=== PATIENT | male | born 1960 | race Caucasian/White ===

== ENCOUNTER → 2023-06-23 13:51 | Outpatient (BNVA) | payer MEDICARE, SELFPAY | PROVIDERS: Referring Provider Nurse Practitioner Family; Visit Provider Internal Medicine Cardiovascular Disease | DX: I25.118 Atherosclerotic heart disease of native coronary artery with other forms of angina pectoris (principal); I10 Essential (primary) hypertension; R06.02 Shortness of breath; J44.9 Chronic obstructive pulmonary disease, unspecified; I77.9 Disorder of arteries and arterioles, unspecified; E78.5 Hyperlipidemia, unspecified | CPT/HCPCS: 99204 ==

== ENCOUNTER 2023-07-01 08:26 | Outpatient (CLI) | payer MEDICARE, SELFPAY ==
[2023-07-01 08:34] VITALS: BMI 23.5
--- NOTE | 2023-07-01 08:42 | ECG_ITS ---
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 Interpretive Statements NAME OF STUDY: EXERCISE SESTAMIBI STRESS TEST INDICATION: [Shortness of Breath, CHF, ] EXERCISE DATA: The patient was exercised by Dheeraj protocol. Baseline heart rate was 101 beats per minute. Baseline blood pressure was 187/96 millimeters of mercury. Maximal predicted heart rate was 158 beats per minute. Maximum heart rate achieved was 161, which was 101% of the maximum predicted heart rate. Maximum blood pressure was 188/91 millimeters of mercury. Total exercise time was 2 minutes 29 seconds. Maximum METs achieved was 4.6. The reason for ending the test was completion of protocol. The patient complained of shortness of breath during the stress test, which then resolved at the end of the test. ELECTROCARDIOGRAM: BASELINE: Showed atrial fibrillation with rapid ventricular rate, normal axis, no significant ST-T changes at the baseline noted. [] EXERCISE: At the peak exercise level, [] No significant ST-T changes suggestive of ischemia noted. [] RECOVERY: During the recovery period, heart rate stayed elevated. No significant ST-T changes in the recovery suggestive of ischemia noted. [] CONCLUSION: 1. Exercise capacity poor 2. Heart rate response was appropriate. 3. Blood pressure response was appropriate 4. Symptoms not suggestive of ischemia. 5. Electrocardiogram portion of the stress test was not suggestive of ischemia. 6. Nuclear scan will be documented separately. Electronically Signed On 07-18-2023 11:34:15 NEWS PHOTOGRAPHER by Adolfo Mcgovern M.D. [email or web address]
--- NOTE | 2023-07-01 08:42 | NMCV_ITS ---
NM ham perf SPECT r/s* [id number] Darren Foley Age: 63 Gender: M : 1960 Exam Date: 07/01/2023 08:42 Ordering Phys: Kelly Aquino MD ([email or web address]) Technologist: NERIS Alexander Exam Location: [facility] Indications: CORONARY ANGIOPLASTY STATUS STRESS TEST Please see separate stress test report in [facility] for full findings IMAGE PROTOCOL Rest/Stress 1 Exercise Day Radiopharmaceutical Dose (mCi) Administration Site Administered by Rest: Tc-99m 10.8 IV NERIS Muñoz Sestamibi Stress:Tc-99m 32.6 IV NERIS Muñoz Sestamibautista Rest: 01-Jul-2023 60 Discovery 630 Stress: 01-Jul-2023 15 Discovery 630 Radiopharmaceutical was injected at 93 % maximum heart rate. Supine position only as patient was unable to lay prone. SPECT RESULTS Technical Quality: Excellent Raw Data Analysis: Normal Image Corrections: No attenuation or motion correction applied Summed Stress Score: 0 Summed Rest Score: 0 Summed Difference Score: 0 PERFUSION FINDINGS SPECT images demonstrate homogeneous tracer distribution throughout the myocardium. FUNCTIONAL RESULTS (calculated via Gated SPECT) Stress Image LV EF (%): 65 Stress EDV (mL):80 TID: 0.88 Stress ESV (mL):28 FUNCTIONAL FINDINGS: There is normal left ventricular systolic function. IMPRESSIONS 1. Normal myocardial perfusion imaging with no evidence of ischemia 2. LV systolic function is normal Adolfo Mcgovern MD (Electronically Signed) Final Date: 01 July 2023 16:51 S
[2023-07-01 10:39] VITALS: BP 160/89; PULSE 112
== END 2023-07-01 08:27 | disposition home or self-care (01) ==
LOC: CDL 08:27
PROVIDERS: PCP Nurse Practitioner Family; Visit Provider Internal Medicine Cardiovascular Disease
DX: I50.9 Heart failure, unspecified (principal)
CPT/HCPCS: 36415; 78452; 93017; 96374; A9500

== ENCOUNTER 2023-07-22 13:13 | Outpatient (CLI) | payer MEDICARE, SELFPAY ==
--- NOTE | 2023-07-22 10:15 | USCV_ITS ---
Darren Foley Age: 63 Gender: M : 1960 Exam Date: 07/22/2023 13:39 Ordering Phys: Kelly Aquino MD ([email or web address]) Technologist: HARISH Exam Location: [facility] [place] Indication: CHEST PAIN/SHORTNESS OF BREATH BP: 144 / 55 HR: 67 Rhythm: Sinus Technical Quality: Suboptimal MEASUREMENTS (Male / Female) Normal Values 2D ECHO LV Diastolic Diameter PLAX 4.6 cm 4.2 - 5.9 / 3.9 - 5.3 cm IVS Diastolic Thickness 0.9 cm 0.6 - 1.0 / 0.6 - 0.9 cm IVS Systolic Thickness 1.6 cm LVPW Diastolic Thickness 1.5 cm 0.6 - 1.0 / 0.6 - 0.9 cm LVPW Systolic Thickness 2.4 cm LVOT Diameter 2.0 cm LV Ejection Fraction 2D Teich 85.4 % LV Ejection Fraction MOD 2C 57.0 % LV Ejection Fraction 2C AL 0.0 % LA Diameter 2.7 cm Aorta at Sinotubular Diameter 2.5 cm IVC Diameter 2.0 cm M-MODE LA Ao Ratio MM 0.9 AV Cusp Separation MM 2.3 cm DOPPLER AV Peak Velocity 108.0 cm/s LVOT Peak Velocity 85.0 cm/s AV Area Cont Eq vti 2.9 cm squared AV Area Cont Eq pk 2.5 cm squared MV Peak Velocity 73.0 cm/s MV Area PHT 2.7 cm squared Mitral E to A Ratio 1.4 TR Peak Velocity 97.0 cm/s TR Peak Gradient 3.8 mmHg TR Mean Velocity 81.0 cm/s TR Mean Gradient 2.7 mmHg TR Velocity Time Integral 28.0 cm TV Peak E Velocity 55.0 cm/s Right Atrial Pressure 3.0 mmHg Pulmonary Artery Systolic Pressu 6.8 mmHg PV Peak Velocity 83.0 cm/s RV Ejection Time 0.4 s FINDINGS Left Ventricle Normal left ventricular size and systolic function, EF 57%. No regional wall motion abnormalities. Grade I/IV diastolic dysfunction (abnormal relaxation filling pattern), normal to mildly elevated filling pressures. Right Ventricle The right ventricle is normal in size and function. Right Atrium The right atrium is normal in size. Left Atrium The left atrium is normal in size. Mitral Valve No gross abnormalities noted Aortic Valve No gross abnormalities noted Tricuspid Valve No gross abnormalities noted Pulmonic Valve No gross abnormalities noted Pericardium Normal pericardium without effusion. Aorta Normal ascending aorta dimension. IVC The inferior vena cava appears normal. CONCLUSIONS Normal left ventricular size and systolic function, EF 57%. No regional wall motion abnormalities. Grade I/IV diastolic dysfunction (abnormal relaxation filling pattern), normal to mildly elevated filling pressures. Normal chamber sizes. No intracardiac masses No pericardial effusion No similar previous studies are available for comparison Dr Kelly Aquino MD [facility] (Electronically Signed) Final Date: 23 July 2023 13:33 S
--- NOTE | 2023-07-22 11:00 | USCV_ITS ---
Darren Foley Age: 63 Gender: M : 1960 Exam Date: 07/22/2023 14:08 Ordering Phys: Kelly Aquino MD ([email or web address]) Technologist: HARISH Exam Location: [facility] [place] Indication: PAD Risk Factors: Previous Vascular Surgery: RIGHT LEFT BP: 144.0 / BP: 140.0/ 0 0 Waveform Velocity (cm/s) Velocity (cm/s) Waveform Triphasic 131.0 Iliac Prox 42.0 Monophasic Triphasic 137.0 Iliac Mid 43.0 Monophasic Triphasic 153.0 Iliac Distal 49.0 Monophasic Triphasic 170.0 LACE ROLLER OPERATOR 51.0 Monophasic Triphasic 108.0 SFA Prox 58.0 Monophasic Triphasic 105.0 SFA Mid 71.0 Monophasic Triphasic 124.0 SFA Dist 81.0 Monophasic Triphasic 59.0 POP 43.0 Monophasic Triphasic 68.0 MOTOR VEHICLE COMPLIANCE ANALYST 46.0 Monophasic Triphasic 68.0 DPA 36.0 Monophasic 1.0 CHRISTOS 0.6 FINDINGS Mild to moderate diffuse heterogenous plaques in the right common iliac artery, mild diffuse plaques in the femoral and popliteal artery on the right side Mild diffuse plaque in the left iliac artery. Moderate diffuse plaque in the femoral and popliteal arteries on the left side Resting CHRISTOS Abnormal artery Doppler waveform in the left side.. Diminished Doppler flow velocity on the left side resting CHRISTOS 1.0 on the right and 0.6 on the left side CONCLUSIONS 1. Abnormal resting CHRISTOS and arterial Doppler waveforms on the left side, history of moderate to severe peripheral artery disease possibly involving the aortoiliac segment. 2. Normal resting CHRISTOS on the right side with a mild to moderate diffuse heterogenous plaques in the iliac artery. Features suggesting no significant stenosis Dr Kelly Aquino MD [facility] (Electronically Signed) Final Date: 22 July 2023 17:10 S
== END 2023-07-22 13:14 | disposition home or self-care (01) ==
LOC: RAD 13:14
PROVIDERS: PCP Nurse Practitioner Family; Visit Provider Internal Medicine Cardiovascular Disease
DX: I73.9 Peripheral vascular disease, unspecified (principal); R06.09 Other forms of dyspnea; I50.9 Heart failure, unspecified
CPT/HCPCS: 93306; 93925

== ENCOUNTER → 2023-09-23 12:11 | Outpatient (BNVA) | payer MEDICARE, SELFPAY | PROVIDERS: PCP Nurse Practitioner Family; Visit Provider Internal Medicine Cardiovascular Disease | DX: R06.02 Shortness of breath (principal) | CPT/HCPCS: 36415; 80048; 83880; 99215 ==

== ENCOUNTER 2023-10-30 10:21 | Outpatient (CLI) | payer MEDICARE, SELFPAY ==
--- NOTE | 2023-10-30 10:45 | CTR_ITS ---
PROCEDURE INFORMATION: Exam: CTA Abdominal Aorta and Bilateral Lower Extremities (Run-off) With Contrast Exam date and time: 10/30/2023 10:36 AM Age: 63 years old Clinical indication: Condition or disease; Patient HX: Pad, left leg weakness; Additional info: Pad, aeap TECHNIQUE: Imaging protocol: Computed tomographic angiography of the of the abdominal aorta, pelvis and bilateral lower extremities with contrast. 3D rendering (Not supervised by radiologist): MIP and/or 3D reconstructed images were created by the technologist. Radiation optimization: All CT scans at this facility use at least one of these dose optimization techniques: automated exposure control; mA and/or kV adjustment per patient size (includes targeted exams where dose is matched to clinical indication); or iterative reconstruction. Contrast material: OMNI 350; Contrast volume: 125 ml; Contrast route: INTRAVENOUS (IV); COMPARISON: No relevant prior studies available. RADIATION DOSE METRICS: Total DLP (mGy-cm): 1131.89 FINDINGS: Aorta: No aortic aneurysm. No aortic dissection. Heavy calcified plaque noted. Celiac trunk and mesenteric arteries: No occlusion or significant stenosis. Renal arteries: No occlusion or significant stenosis. Right iliac arteries: No occlusion or significant stenosis. Right femoral/popliteal arteries: No occlusion or significant stenosis. Right infrapopliteal arteries: No occlusion or significant stenosis. Left iliac arteries: There is occlusion of the left common iliac artery but the external iliac artery is patent. Left femoral/popliteal arteries: No occlusion or significant stenosis. Left infrapopliteal arteries: No occlusion or significant stenosis. Liver: No mass. Gallbladder and bile ducts: Unremarkable. No calcified stones. No ductal dilation. Pancreas: Unremarkable. No mass. No ductal dilation. Spleen: Normal. No splenomegaly. Adrenal glands: Normal. No mass. Kidneys and ureters: 3.7 cm left renal cyst noted. 2 cm right renal cyst noted. No mass. Stomach and bowel: Unremarkable. No obstruction. No mucosal thickening. Appendix: No evidence of appendicitis. Urinary bladder: Unremarkable. No mass. Reproductive: Unremarkable as visualized. Intraperitoneal space: Unremarkable. No free air. No significant fluid collection. Lymph nodes: No lymphadenopathy. Bones/joints: No acute fracture. No dislocation. Soft tissues: Unremarkable. CT/CT angio abd aorta runof [id number] IMPRESSION: 1. Left common iliac artery occlusion, felt to be chronic. No other significant arterial abnormality noted. 2. A benign renal cyst or cysts have been detected. No further follow-up imaging is required.
[2023-10-30] MEDS: iohexol 350 mg/mL 500 mL Btl (per mL) IV (10:49)
== END 2023-10-30 10:22 | disposition home or self-care (01) ==
LOC: RAD 10:22
PROVIDERS: PCP Nurse Practitioner Family; Visit Provider Internal Medicine Cardiovascular Disease
DX: I74.5 Embolism and thrombosis of iliac artery (principal); I77.9 Disorder of arteries and arterioles, unspecified; I73.9 Peripheral vascular disease, unspecified; N28.1 Cyst of kidney, acquired
CPT/HCPCS: 75635; Q9967

== ENCOUNTER → 2023-12-17 12:24 | Outpatient (BNVA) | payer MEDICARE, SELFPAY | PROVIDERS: PCP Nurse Practitioner Family; Visit Provider Internal Medicine | DX: I77.9 Disorder of arteries and arterioles, unspecified (principal) | CPT/HCPCS: 99214 ==

== ENCOUNTER 2024-01-22 07:23 | Outpatient (CLI) | payer MEDICARE, SELFPAY ==
[2024-01-22] VITALS (57 sets, daily range): BP systolic 89–151; BP diastolic 52–107; PULSE 0–104; RESP 13–30; TEMP 35.9–36.7; O2SAT 92–98; BMI 22.5
--- NOTE | 2024-01-22 07:30 | XACV_ITS ---
Ht: 170 cm Wt: 65 kg BSA: 1.76 m2 Any Known Allergies: No known allergies Gender: Male : 1960 Exam Type: Invasive Peripheral Vascular Procedure(s): Procedure Description: Peripheral Cath Diagnostic Procedure Procedure Description: Abdominal aortic angiography Procedure Description: Iliac arterial aortic angiography Exam Priority: Routine Abdominal Diagnostic Findings Distal abdominal aorta: Patent. Lower Extremity Diagnostic Findings INDICATION: 63-year-old man with past medical history of hypertension who has been having severe lifestyle limiting claudication of left lower extremity. Now says has been having resting leg pain as well. Severe lifestyle limiting claudication/occasional resting leg pain.. Left lower extremity findings: Left ostial common iliac artery is totally occluded with reconstitution of external iliac artery via collaterals. After reconstitution external iliac artery is patent. The common femoral artery is patent. SFA is patent. Profunda artery is patent. Popliteal artery is patent. Below the knee appears to have three-vessel runoff.. Right lower extremity findings: Right common iliac artery is patent. Right external iliac artery is patent. Right common femoral artery is patent. Right profunda artery is patent. Right SFA till mid vessel is patent. Below the that image not obtained as focus of procedure was left lower extremity.. Lower Extremity Interventional Findings Procedure detail: After diagnostic images were obtained, we attempted to revascularize totally occluded left common iliac artery. We obtained access in left common femoral artery with 6 Persian sheath. Using Glidewire and initially seeker support catheter we attempted to cross the totally occluded segment however it was going into subintimal space. We then switched catheter to Navicross however were not able to get back in the true lumen. Further attempts at revascularization were aborted. Access sites were closed with Mynx closure device. Patient left the laboratory immunologist in a stable condition with plans to refer to vascular surgery for consideration of possible bypass vs reattempt at percutaneous intervention. Conclusions Totally occlude left iliac artery s/p unsuccessful attempt at revascularization. Patient will be referred to vascular surgery for reattempt of percutaneous intervention vs bypass surgery. Recommendations Continue Cilostazol and aspirin. High intensity statin therapy. Outpatient cardiology follow up in 2 weeks. Hemodynamic Data Phase:Rest AO : 146.0 / 56.0 ( 79.0 ) @ 11:04:00 AM 115.0 / 55.0 ( 75.0 ) @ 11:28:00 AM Access Site Site: Right Femoral artery Sheath Size: 6 Fr Hemost... Method: Mynx Hemost... Success: Successful Site: Left Femoral artery Sheath Size: 6 Fr Hemost... Method: Mynx Hemost... Success: Successful Procedure Details Findings Procedure Consent Obtained. Pre-Procedure Time Out. Identified patient by full name and date of as verbalized by the patient/guarantor. Does the consent match the physician's order: Yes. Accurate & Complete Informed Consent: Yes. Inpatient/Outpatient History & Physical on Chart: Yes. If H&P is completed, is and addenduem needed: No; If yes, is the addendum complete: N/A. Visualize and Verify Site with Patient/Guarantor: N/A. Relevant Radiology Images available: Yes. Pre-op teaching completed and patient verbalized understanding. The risks, benefits, and alternatives of sedation and/or procedure were discussed by physician. The patient agrees to continue. Procedure started. Physician arrived. Correct patient, site and procedure confirmed by cath team. IV Site on Arrival: 20 gauge in the right anticubital. IV Fluids: 0.9% NaCl at KVO. 0 mL infused prior to laboratory immunologist. Pre Procedural Pulses: right dorsalis pedis was 2+. Pre Procedural Pulses: left dorsalis pedis was Doppled. Pre Procedural Pulses: bilateral posterior tibial was Doppled. Pre Procedural Pulses: bilateral radial was 3+. Oxygen started at 2liters/min via nasal canula. bilateral groins was prepped with chloroprep then draped in the usual sterile fashion. Baseline sample Acquired. HR: 101 BPM. Physician scrubbed in. Immediate Pre-Procedure Time Out. Correct Patient: Yes; Correct Procedure: Yes; Correct Site: Yes; Correct Patient Position: Yes; Correct Supplies: Yes; Dried Flammable Prep: Yes; Blood Products Available: N/A;. Lidocaine 1% infiltrated to the right groin. Arterial access obtained with micropuncture set. A 5Fr UF catheter in over wire. Abdominal aortogram performed in AP @ 10 mL/sec for a total of 30 mL. Catheter attached to heparnized saline flush at KVO to maintain patency on the right side. Lidocaine 1% infiltrated to the left groin. Ultrasound being used to obtain access. Arterial access obtained with micropuncture set. Glidewire inserted. Seeker catheter inserted OTW. UF catheter postioned above the bifurcation of the iliacs. Aortagram performed @ 10 mL/sec for a total of 10 mL. UF catheter postioned above the bifurcation of the iliacs. Aortagram performed @ 10 mL/sec for a total of 20 mL. Glidewire removed. Glidewire inserted through the UF catheter. Catheter removed OTW. A 5Fr RIM catheter in over wire. Glidewire removed. Catheter attached to heparnized Saline flush at KVO to maintain patency. Glidewire inserted through the seeker catheter. Seeker removed OTW. Navicross catheter inserted OTW. Navicross and glidewire removed. Catheter removed OTW. A Right femoral angiogram was performed to determine safe placement of closure device. A Left femoral angiogram was performed to determine safe placement of closure device. A Mynx was successful obtaining hemostatsis at the Left Femoral artery insertion site. A Mynx was successful obtaining hemostatsis at the Right Femoral artery insertion site. Post Procedure: Pulses reassessed and unchanged. PERRLA. Strong, equal hand fire alarm repairer bilaterally. No VTE prophylaxis required. Medication's Wasted: Heparin = 2000 units. Medication's Wasted: Other = Fentanyl 50mcg Versed 1 mg. Total IV fluids: 100 mL. Complications: None. Estimated blood loss: 5mL-10mL. Responsiveness - Normal response to verbal stimuli; alert and oriented, PERRLA. Airway - Unaffected, no intervention required; spontaneous ventilation. Circulation: W/N/L, pulses unchanged. Nausea/Vomiting: No. Vital chart was stopped. Procedure completed. Patient transferred by bed to ICU. Procedure Medications Start: 9:53 AM Stop: 9:53 AM Medication: Benadryl Amount: 50 mg Route: I.V. Start: 9:57 AM Stop: 9:57 AM Medication: Versed 1 mg and Fentanyl 25 mcg Amount: 1 Route: I.V. Start: 10:01 AM Stop: 10:01 AM Medication: Versed Amount: 1 mg Route: I.V. Start: 10:21 AM Stop: 10:21 AM Medication: Heparin Amount: 2000 units Route: I.V. Start: 10:22 AM Stop: 10:22 AM Medication: Versed 1 mg and Fentanyl 25 mcg Amount: 1 Route: I.V. I, the attending physician, have reviewed and verified all procedure medications. Yes, all medications given per verbal order History/Risk Factors Hypertension: Yes Dyslipidemia: Yes Peripheral Arterial Disease (PAD): Yes Obesity: No Renal Disease: No Tobacco Use: Current/Recent(w/in 1 year) Prior Interventions PCI: No CABG: No Valve Surgery: No Report Signatures Finalized by Adolfo Mcgovern MD on 01/24/2024 04:32 PM
[2024-01-22 07:46] LABS: Basophils % 0.2 %; Eosinophils # 0.1 10^3/uL (0.0-0.8); Eosinophils % 0.4 %; Hematocrit 42.3 % (37-53); Lymphocytes # 2.6 10^3/uL (0.8-4.8); Lymphocytes % 17.9 %; Mean Corpuscular HGB Conc 32.6 g/dL (30-55); Mean Corpuscular Hemoglobin 30.1 pg (27-33); Mean Corpuscular Volume 92.2 fl (82-101); Mean Platelet Volume 8.7 fL (7.4-10.4); Monocytes # 1.2 10^3/uL (0.2-0.9); Monocytes % 8.2 %; Neutrophils # 10.42 10^3/uL (1.8-7.7); Neutrophils % 72.7 %; Nucleated Red Blood Cells % 0 %; Platelet Count 274 10^3/cmm (157-399); Red Blood Count 4.59 10^6/uL (3.85-5.65); Red Cell Distribution Width 13.2 % (12.1-15.1); White Blood Count 14.34 10^3/uL (3.29-11.43)
[2024-01-22 08:00] LABS: Anion Gap 18.4 (5-19); Blood Urea Nitrogen 26 mg/dL (8-23); Carbon Dioxide 26 mmol/L (22-29); Chloride 98 mmol/L (98-107); Glomerular Filtration Rate 67.8 mL/min (90-130); Glucose 118 mg/dL (65-115); Osmolality Calculated 292 mOsm/kg (285-295); Potassium 4.4 mmol/L (3.5-5.1); Sodium 138 mmol/L (136-145)
--- NOTE | 2024-01-22 09:54 | W.PM.OPSFHP ---
Same Day Surgery H&P Indication for Procedure/HPI DATE OF PROCEDURE: January 22, 2024 CHIEF COMPLAINT/INDICATIONFOR SURGICAL PROCEDURE: Severe lifestyle limiting claudication of left lower extremity PREOP DIAGNOSIS: Severe lifestyle limiting claudication of left lower extremity PLANNED PROCEDURE: Operation Date: 01/22/24 08:30 Proposed Procedures p Peripheral Diagnostic - Periph Angio Bilat(Not Applicable) - Adolfo Mcgovern M.D Possible peripheral intervention 63-year-old man with past medical history of hypertension who has been having severe lifestyle limiting claudication of left lower extremity. Now says has been having resting leg pain as well. Medications/Allergies* Home Medications Medication Instructions Recorded Confirmed Type ipratropium 0.5 mg-albuterol 3 mg 3 ml inhalation QID PRN Shortness 10/11/21 01/21/24 History (2.5 mg base)/3 mL nebulization Of Breath soln albuterol sulfate 90 mcg/actuation 2 inh inhalation Q4H PRN Shortness 04/03/22 01/21/24 History breath activated powder inhaler Of Breath nitroglycerin 0.4 mg sublingual 0.4 mg sublingual Q5M PRN Chest 04/03/22 01/21/24 History tablet (Nitrostat) Pain trazodone 100 mg tablet 250 mg PO DAILY 04/03/22 01/22/24 History brexpiprazole 1 mg tablet (Rexulti) 1 mg PO DAILY 06/23/23 01/22/24 History fluoxetine 20 mg capsule 20 mg PO DAILY 06/23/23 01/21/24 History budesonide 160 mcg-glycopyr 9 2 inh inhalation BID 01/22/24 01/22/24 History mcg-formot 4.8 mcg/actuation HFA inhaler (Breztri Aerosphere) Allergies/Adverse Reactions Allergy/AdvReac Type Severity Reaction Status Date / Time No Known Drug Allergies Allergy Unknown Verified 01/21/24 08:27 Current Medications: Generic Name Dose Route Start Last Admin Trade Name Freq PRN Reason Stop Dose Admin Sodium Chloride 1,000 mls @ 50 mls/hr 01/22/24 07:30 01/22/24 08:12 Sodium Chloride 0.9% IV 01/23/24 03:29 Not Given .Q20H ONE Pertinent History/Comorbid Conditions* Medical History (Updated 12/17/23 @ 13:51 by Adolfo Mcgovern M.D) HTN (hypertension) Anxiety Atrial fibrillation Chest pain COPD (chronic obstructive pulmonary disease) Cigarette nicotine dependence Atherosclerosis Pre-syncope Dizziness Insomnia Shortness of breath Depression Fatigue Social History Smoking and tobacco/nicotine status: current every day tobacco/nicotine user Pertinent Exam Findings alert, oriented x 3, clear to auscultation bilaterally and regular rate & rhythm Conscious Sedation Assessment PATIENT ASSESSED PRIOR TO SEDATION, WITH NO CHANGE NOTED: Yes AIRWAY EVAL/ANESTHESIA PLAN: normal airway, ASA III, Local Anesthesia, Risks, benefits & alternatives of sedation and/or procedure discussed and Patient agrees to continue as planned ADDITIONAL INFORMATION: Moderate sedation Recommendations Surgery/Procedure today (Peripheral angiogram with possible intervention) Coding Level of Care Code Acute Code for Chg Jyothi
[2024-01-22] MEDS: sodium chloride 0.9% 1,000 ML 75 ML IV (12:29)
[2024-01-22] MEDS: HYDROcodone-acetaminophen 7.5-325 mg Tablet 1 TAB PO (12:30)
--- NOTE | 2024-01-22 15:46 | PC.NURSE ---
received patient from laborer powerhouse staff at 1115. Patient is oriented to person, place, time, and situation, a little lethargic. BP: 142/71, HR: 77, SPO2: 94% on room air. Bilateral puncture sites to groin are unremarkable. Mynx closure device used. No hematoma detected. No external bleeding noted.
--- NOTE | 2024-01-22 15:51 | PC.NURSE ---
Post cath bedrest completed at 3pm. Nurse got patient up to a chair, reassess bilateral cath sites before getting up and 5 minutes after up in the chair. No changes. dressings intact, no signs of internal or external bleeding. Checked again 10 minutes later and continues to be unremarkable. Will continue to monitor.
--- NOTE | 2024-01-22 16:28 | PC.NURSE ---
Ambulated patient around ICU walked approximately 200 feet. Remained sinus rythm. CHeck bilateral groind sites after ambulation. sites were unremarkable.
--- NOTE | 2024-01-22 18:08 | PC.NURSE ---
Patient ambulated out of the ICU floor after instructions and follow up appointments were given. IV was taken out by this nurse before patient left. Patient was stable upon discharge.
== END 2024-01-22 18:00 | disposition home or self-care (01) ==
LOC: CCL 08:58 → ICU 11:11
PROVIDERS: PCP Nurse Practitioner Family; Visit Provider Internal Medicine
DX: I70.222 Atherosclerosis of native arteries of extremities with rest pain, left leg (principal); I70.92 Chronic total occlusion of artery of the extremities; I10 Essential (primary) hypertension; E78.5 Hyperlipidemia, unspecified; F41.9 Anxiety disorder, unspecified; I48.91 Unspecified atrial fibrillation; J44.9 Chronic obstructive pulmonary disease, unspecified; F17.210 Nicotine dependence, cigarettes, uncomplicated
CPT/HCPCS: 75625; 80048; 85025; 96374; 96375; 99152; 99153; C1760; C1769; C1887; C1894; G0269; J1200; J1644; J2250; J3010; J7030; Q9967

== ENCOUNTER 2025-03-31 11:19 | Inpatient (IN) | payer MEDICARE, SELFPAY ==
[2025-03-31] VITALS (30 sets, daily range): BP systolic 83–130; BP diastolic 61–101; PULSE 90–130; RESP 10–34; TEMP 36.6–36.8; O2SAT 94–100; BMI 21.4
--- NOTE | 2025-03-31 11:27 | XRR_ITS ---
PROCEDURE INFORMATION: Exam: XR Chest Exam date and time: 03/31/2025 11:31 AM Age: 65 years old Clinical indication: Shortness of breath; Additional info: Rapid afib, HX copd on oxygen, mildly SOB TECHNIQUE: Imaging protocol: Radiologic exam of the chest. Views: 1 view. COMPARISON: CT angio abd aorta runof [id number] 10/30/2023 10:36 AM FINDINGS: Lungs: No focal airspace opacity. Pleural spaces: No pneumothorax or large pleural effusion. Heart/Mediastinum: Heart size cannot be accurately assessed in this projection. Bones/joints: Unremarkable. XR/XR chest 1V portable [id number] IMPRESSION: No acute findings.
--- OUTSIDE RECORDS SUMMARY | 2025-03-31 11:27 | XMS_ITS | Data Portability ---
Author Organization [facility], [facility] Address [address] [place] [address] Assessment No assessment recorded. Plan of Treatment Reminders Order Date Submit Date Provider Last Modified By Organization Details Last Modified Time Details Appointments ESTABLISH ED PATIENT 20 2024 09:20A M Cindy Joseph NP Not available Not available Not available Lab CBC w/ diff 2024 025 [facility] Clinical Lab, [address] [place], [address], 02/02/2025 16:27:21 CMP, serum or plasma 2024 025 [facility] Clinical Lab, [address] [place], [address], 02/02/2025 16:27:22 TSH, serum or plasma 2024 025 [facility] Clinical Lab, [address] [place], [address], 02/02/2025 16:27:22 lipid panel, serum 2024 025 [facility] Lab, [address] [place], [address], 02/02/2025 16:27:23 H pylori Ab, serum 2024 025 [email or web address] [facility], [address] [place] [address], [address], 02/02/2025 13:23:32 HbA1c (hemoglob in A1c), blood 2024 [facility] Lab, [address] [place], [address], 02/02/2025 18:34:13 HIV 1 p24 Ab, QL, serum [address] Clinical Lab, [address] [place], [address], 02/09/2025 08:16:14 Referral [facility] referral - CALL WITH QUESTIONS /CONCERNS . FAX:[phone] CLARA SMITH/CASE MANAGEMEN T 2024 [facility], [address] [facility] [address], [place], [address], 03/22/2025 09:01:26 ophthalmo logist referral [address] [facility] [place], [address] , [place], [address], 02/17/2025 11:13:33 Procedures None recorded. Surgeries None recorded. Imaging CT, brain, w/o contrast - Schedule as soon as possible [address], [address], [place], [address], 03/21/2025 16:05:09 Medication Orders fluoxetin e 60 mg tablet 2024 025 [facility] [place], [address], [place], [address], 03/22/2025 13:58:10 Yupelri 175 mcg/3 mL solution for nebulizat ion 2024 [email or web address] [facility] [place], [address] [place], [address], 03/10/2025 14:02:59 guaifenes in ER 600 mg tablet, extended release 12 hr 2024 025 [email or web address] [facility] [place], [address] [place], [address], 03/10/2025 14:02:59 Daliresp 500 mcg tablet 2024 025 [facility] [place], [address] [place], [address], 03/11/2025 13:57:44 prednison e 20 mg tablet 2024 025 [facility] [place], [address] [place], [address], 03/22/2025 05:01:58 Depo-Medr ol 40 mg/mL suspensio n for injection 2024 025 [email or web address] Not available 03/21/2025 10:35:16 dexametha sone sodium phosphate 4 mg/mL injection solution 2024 025 [email or web address] Not available 03/21/2025 10:35:19 Depo-Medr ol 40 mg/mL suspensio n for injection 2024 025 [email or web address] Not available 03/21/2025 10:35:16 dexametha sone sodium phosphate 4 mg/mL injection solution 2024 025 [email or web address] Not available 03/21/2025 10:35:19 prednison e 20 mg tablet 2024 025 [facility] [place], [address] [place], [address], 03/22/2025 05:01:58 levofloxa ruben 500 mg tablet 2024 025 [facility] [place], [address] [place], [address], 02/24/2025 05:02:14 Symbicort 160 mcg-4.5 mcg/actua tion HFA aerosol inhaler 2024 025 [place], [address] [place], [address], 03/28/2025 12:58:57 omeprazol e 20 mg capsule,d elayed release 2024 025 [facility] [place], [address] [place], [address], 03/28/2025 12:58:55 Patient TargetsNo targets recorded. Patient Instructions Encounter Date Encounter Id Patient Instructions Last Modified By Organization Details Last Modified Time 02/02/2025 [id number] heart-healthy diet: care instructions Not available 02/02/2025 13:23:32 walking for exercise: care instructions Not available 02/02/2025 13:23:32 03/10/2025 [id number] heart-healthy diet: care instructions Not available 03/10/2025 14:02:59 walking for exercise: care instructions Not available 03/10/2025 14:02:59 03/21/2025 [id number] heart-healthy diet: care instructions Not available 03/21/2025 17:31:49 walking for exercise: care instructions Not available 03/21/2025 17:31:49 smoking cessatio n counseling, greater than 3 minutes up to 10 minutes* [email or web address] Not available 03/21/2025 10:40:36 03/31/2025 [id number] heart-healthy diet: care instructions Not available 03/31/2025 10:19:35 walking for exercise: care instructions [email or web address] Not available 03/31/2025 10:19:35 Reason for Referral [employer] Referral for Eye / vision finding Referring Physician: Cindy Joseph, Family Medicine, Encounter Date: 02/02/2025 Home Health Referral for Chr onic obstructive pulmonary disease CALL [phone] WITH QUESTIONS/CONCERNS. FAX:[phone] CLARA SMITH/CASE MANAGEMENT Referring Physician: Cindy Joseph, Family Medicine, Encounter Date: 03/21/2025 Results Created Date Observation Date Name Description Value Unit Range Abnormal Flag Note LastModifiedBy Organization Detail LastModifiedTime 02/03/2002/02/2025 CBC WBC 8.68 x10(3 )/uL 4.23 - 9.07 Not Available [facility] Clinical Lab [address], [place], [address], 02/02/2025 16:27:21 02/03/2002/02/2025 CBC RBC 4.65 x10(6 )/uL 4.63 - 6.08 Not Available [facility] Lab [address], [place], [address], 02/02/2025 16:27:21 02/03/2002/02/2025 CBC HGB 14.6 g/dL 13.7 - 17.5 Not Available [facility] Lab [address], [place], [address], 02/02/2025 16:27:21 02/03/2002/02/2025 CBC HCT 42.4 % 40.1 - 51.0 Not Available [facility] Lab [address], [place], [address], 02/02/2025 16:27:21 02/03/2002/02/2025 CBC MCV 91.2 fL 79.0 - 92.2 Not Available [facility] Lab [address], [place], [address], 02/02/2025 16:27:21 02/03/2002/02/2025 CBC MCH 31.4 pg 25.7 - 32.2 Not Available [facility] Clinical Lab [address] [place], [address], 02/02/2025 16:27:21 02/03/2002/02/2025 CBC MCHC 34.4 g/dL 32.3 - 36.5 Not Available [facility] Lab [address] [place], [address], 02/02/2025 16:27:21 02/03/2002/02/2025 CBC platelet count 250 x10(3 )/uL 163 - 337 Not Available [facility] Lab [address] [place], [address], 02/02/2025 16:27:21 02/03/2002/02/2025 CBC neut% 64.8 % 34.0 - 67.9 Not Available [facility] Clinical Lab [address] [place], [address], 02/02/2025 16:27:21 02/03/2002/02/2025 CBC lymph% 24.0 % 21.8 - 53.1 Not Available [facility] Lab [address] [place], [address], 02/02/2025 16:27:21 02/03/2002/02/2025 CBC mono% 9.0 % 5.3 - 12.2 Not Available [facility] Lab [address] [place], [place], [address], 02/02/2025 16:27:21 02/03/2002/02/2025 CBC baso% 0.5 % 0.2 - 1.2 Not Available [facility] Clinical Lab [address] [place], [address], 02/02/2025 16:27:21 02/03/20 25 02/02/2025 CBC eo% 1.2 % 0.8 - 7.0 Not Available [facility] Lab [address] [place], [address], 02/02/2025 16:27:21 02/03/20 25 02/02/2025 CBC Ig% 0.5 % 0.0 - 0.4 high Not Available [facility] Lab [address] [place], [address], 02/02/2025 16:27:21 02/03/2002/02/2025 CBC neut# 5.64 x10(3 )/uL 1.78 - 5.38 high Not Available [facility] Lab [address] [place], [address], 02/02/2025 16:27:21 02/03/2002/02/2025 CBC lymph# 2.08 x10(3 )/uL 1.32 - 3.57 Not Available [facility] Lab [address] [place], [address], 02/02/2025 16:27:21 02/03/2002/02/2025 CBC mono# 0.78 x10(3 )/uL 0.30 - 0.82 Not Available [facility] Lab [address] [place], [address], 02/02/2025 16:27:21 02/03/2002/02/2025 CBC baso# 0.04 x10(3 )/uL 0.01 - 0.08 Not Available [facility] Lab [address] [place], [address], 02/02/2025 16:27:21 02/03/2002/02/2025 CBC eo# 0.10 x10(3 )/uL 0.04 - 0.54 Not Available [facility] Lab [address] [place], [address], 02/02/2025 16:27:21 02/03/2002/02/2025 CBC Ig# 0.04 x10(3 )/uL 0.00 - 0.03 high Not Available [facility] Lab [address] [place], [address], 02/02/2025 16:27:21 02/03/2002/02/2025 CBC RDW-CV 13.2 % 11.6 - 14.4 Not Available [facility] Lab [address] [place], [address], 02/02/2025 16:27:21 02/03/2002/02/2025 CBC RDW-SD 44.1 fL 35.1 - 43.9 high Not Available [facility] [address] [place], [address], 02/02/2025 16:27:21 02/03/2002/02/2025 CBC MPV 9.3 fL 9.4 - 12.4 low Not Available [facility] [address] [place], [address], 02/02/2025 16:27:21 02/03/2002/02/2025 CBC NRBC# 0.00 x10(3 )/uL 0.00 - 0.01 Not Available [facility] Lab [address], [place], [place], [address], 02/02/2025 16:27:21 02/03/2002/02/2025 CBC NRBC% 0.0 % 0.0 - 0.2 Not Available [facility] Lab [address], [place], [address], 02/02/2025 16:27:21 02/03/20 25 02/02/2025 TSH TSH 0.987 mIU/L 0.465 - 4.680 Not Available [facility] Lab [address] [place], [address], 02/02/2025 16:27:22 02/03/2002/02/2025 COMPR EHENS MINAL METAB OLIC PANEL (CMP) albumin 4.2 g/dL 3.5 - 5.0 Not Available [facility] Lab [address] [place], [address], 02/02/2025 16:27:22 02/03/20 25 02/02/2025 COMPR EHENS MINAL METAB OLIC PANEL (CMP) chloride 103 mmol/ L 98 - 107 Not Available [facility] Lab [address] [place], [address], 02/02/2025 16:27:22 02/03/2002/02/2025 COMPR EHENS MINAL METAB OLIC PANEL (CMP) creatinine 0.78 mg/dL 0.66 - 1.25 Not Available [facility] Lab [address] [place], [address], 02/02/2025 16:27:22 02/03/20 25 02/02/2025 COMPR EHENS MINAL METAB OLIC PANEL (CMP) eco2 32.0 mmol/ L 22.0 - 30.0 high Not Available [facility] Lab [address] [place], [address], 02/02/2025 16:27:22 02/03/20 25 02/02/2025 COMPR EHENS MINAL METAB OLIC PANEL (CMP) glucose 92 mg/dL 74 - 106 Not Available [facility] Lab [address] [place], [address], 02/02/2025 16:27:22 02/03/20 25 02/02/2025 COMPR EHENS MINAL METAB OLIC PANEL (CMP) potassium 4.40 mmol/ L 3.50 - 5.10 Not Available [facility] Lab [address] [place], [address], 02/02/2025 16:27:22 02/03/20 25 02/02/2025 COMPR EHENS MINAL METAB OLIC PANEL (CMP) alkaline phos 62 U/L 38 - 126 Not Available [facility] Lab [address] [place], [address], 02/02/2025 16:27:22 02/03/20 25 02/02/2025 COMPR EHENS MINAL METAB OLIC PANEL (CMP) sodium 139 mmol/ L 137 - 145 Not Available [facility] Lab [address] [place], [address], 02/02/2025 16:27:22 02/03/20 25 02/02/2025 COMPR EHENS MINAL METAB OLIC PANEL (CMP) total bilirubin 0.7 mg/dL 0.2 - 1.3 Not Available [facility] Lab [address] [place], [address], 02/02/2025 16:27:22 02/03/20 25 02/02/2025 COMPR EHENS MINAL METAB OLIC PANEL (CMP) total protein 6.8 g/dL 6.3 - 8.2 Not Available [facility] Lab [address] [place], [address], 02/02/2025 16:27:22 02/03/20 25 02/02/2025 COMPR EHENS MINAL METAB OLIC PANEL (CMP) ALT 26 U/L 0 - 50 Not Available [facility] Lab [address] [place], [address], 02/02/2025 16:27:22 02/03/20 25 02/02/2025 COMPR EHENS MINAL METAB OLIC PANEL (CMP) BUN/urea 14 mg/dL - Not Available [facility] Lab [address] [place], [address], 02/02/2025 16:27:22 02/03/20 25 02/02/2025 COMPR EHENS MINAL METAB OLIC PANEL (CMP) eGFR 100 mL/mi n/1.7 3m2 >60 *eGFR Refer ence Value s Guillermina l: >60 mL/mi n/1.7 3m2 Abnor mal: < 60 mL/mi n/1.7 3m2 Not Available [facility] Lab [address] [place], [address], 02/02/2025 16:27:22 02/03/20 25 02/02/2025 COMPR EHENS MINAL METAB OLIC PANEL (CMP) A/G ratio 1.6 (calc ) 1.0 - 2.5 Not Available [facility] Lab [address] [place], [address], 02/02/2025 16:27:22 02/03/20 25 02/02/2025 COMPR EHENS MINAL METAB OLIC PANEL (CMP) globulin 2.6 g/dL_ (calc ) 1.9 - 3.7 Not Available [facility] Lab [address] [place], [address], 02/02/2025 16:27:22 02/03/20 25 02/02/2025 COMPR EHENS MINAL METAB OLIC PANEL (CMP) calcium 9.5 mg/dL 8.4 - 10.2 Not Available [facility] Lab [address] [place], [address], 02/02/2025 16:27:22 02/03/20 25 02/02/2025 COMPR EHENS MINAL METAB OLIC PANEL (CMP) AST 26 U/L 17 - 59 Not Available [facility] Lab [address] [place], [address], 02/02/2025 16:27:22 02/03/20 25 02/02/2025 COMPR EHENS MINAL METAB OLIC PANEL (CMP) BUN/crea ratio 18 (calc ) 6 - 22 Not Available [facility] Lab [address] [place], [address], 02/02/2025 16:27:22 02/03/20 25 02/02/2025 LIPID PANEL VLDL (calculated) 10 mg/dL (calc ) 0 - 30 Not Available [facility] Lab [address] [place], [address], 02/02/2025 16:27:23 02/03/20 25 02/02/2025 LIPID PANEL direct HDL 56 mg/dL 40 - 60 Not Available [facility] Lab [address] [place], [address], 02/02/2025 16:27:23 02/03/20 25 02/02/2025 LIPID PANEL triglyceride s 52 mg/dL 0 - 199 Not Available [facility] Lab [address] [place], [address], 02/02/2025 16:27:23 02/03/20 25 02/02/2025 LIPID PANEL cholesterol 144 mg/dL <200 Not Available [facility] Clinical Lab [address] [place], [address], 02/02/2025 16:27:23 02/03/20 25 02/02/2025 LIPID PANEL chol/DHDL ratio 3 %_(ca lc) 0 - 5 Not Available [facility] Lab [address] [place], [address], 02/02/2025 16:27:23 02/03/20 25 02/02/2025 LIPID PANEL LDL (calculated) 78 mg/dL 0 - 100 Not Available [facility] Lab [address] [place], [address], 02/02/2025 16:27:23 02/03/20 25 02/02/2025 HIV 1/2 AB 4TH GEN.( W/P24 AG) W/REF CAROLIN TO QUANT . HIV 1/2 Ab, 4TH gen.(w/P24 Ag) Negati ve Not Available [facility] Lab [address] [place], [address], 02/02/2025 17:32:11 02/03/20 25 02/02/2025 HGBA1 C % HGBA1C 5.3 % 4.0 - 6.0 non-d iabet ic range : 4-6% ADA Targe t:<7% Above Targe t: 8-12% Not Available [facility] Lab [address] [place], [address], 02/02/2025 18:34:13 02/03/2002/02/2025 H pylor i Ab, serum H. Pylori AB negati ve Not Available [address], [address], 02/02/2025 12:58:17 03/31/2003/31/2025 elect devin copegr am No observ ation record ed. BARCODE Not Available 2024 11:01:23 Result Notes None recorded. Problems Name Problem SNOMED Code Status Onset Date Resolution Date Notes Provider Name and Address Organization Details Recorded Time Insomnia 902574354 Active 2022 REGINALDO Hoang - [facility] 14:19:50 Chronic obstructive pulmonary disease 39647212 Active 2022 [facility] 3 14:34:12 Cigarette smoker 79397052 Active 2022 [facility] 3 10:40:06 Depressive disorder 18148654 Active 2022 [facility] 3 10:40:08 Hypertensiv e disorder 05358069 Active 2022 [facility] 3 10:40:10 Literacy problems 873285049 Active 2022 [facility] 3 14:15:31 Coronary arterioscle rosis 03533706 Active 2023 Cindy Joseph NP [address], [address] [place] [address] 4 16:53:47 Dependence on supplementa l oxygen 039897999164 Active 2023 Cindy Joseph NP [address], [address] [place] [address] 4 12:21:14 Atrial fibrillatio n 13049613 Active 2024 [facility] 5 14:12:19 Problem Notes None recorded. Procedures Surgical History Date Name Laterality Status Provider Name and Address Organization Details Recorded Time 5 IV Start completed [facility] 03/31/2025 10:58:25 5 Nebulizer tx albuterol completed [facility] 02/07/2025 12:15:28 5 Measure Blood Oxygen Level completed [facility] 02/07/2025 12:02:42 5 Nebulizer tx albuterol completed [facility] 11/02/2024 11:25:48 4 Suture/Staple removal completed TUSHAR BURKETT, REINIER [address], [address], [facility] 02/02/2024 17:29:25 4 Excision and closure Face B9 1.1-2 cm completed Cindy Joseph NP [address], [address], [facility] 01/29/2024 12:39:24 Imaging Results None recorded. Procedure Notes None recorded. Medical Equipment None Reported. Allergies Allergen ID Allergen Name Allergen Category Reaction Reaction Severity Criticality Documentation Date Start Date Code Code System Note Provider Name and Address Organization Details Recorded Time 02246 amlodipin e medicatio n Not available Not available low 03/15/20252020 58411 RxNorm Joint swell ing Not Available [employer] - External [employer] - prod 10:38:00 06002 lisinopri l medicatio n swelling Not available low 03/15/20252020 39496 RxNorm Not Available [employer] - prod 10:38:00 Medications Name Sig Start Date Stop Date Status Note LastModified by Organization Details LastModified Time fluoxetine 40 mg capsule TAKE 1 CAPSULE BY MOUTH EVERY DAY(take 40mg + 20mg for total of 60 mg) 2024 active Not Available Not Available Not Avai lable amoxicillin 500 mg capsule TAKE 1 CAPSULE BY MOUTH TWICE DAILY FOR 10 DAYS 12/31 completed Not Available Not Available Not Available potassium chloride ER 10 mEq capsule,ext ended release TAKE 1 CAPSULE BY MOUTH DAILY 05/10 completed Not Available Not Available Not Available prednisone 10 mg tablet TAKE 4 TABLETS BY MOUTH DAILY FOR 3 DAYS, THEN TAKE 3 TABLETS BY MOUTH DAILY FOR 3 DAYS, THEN TAKE 2 TABLETS BY MOUTH DAILY FOR 3 DAYS, THEN 1 TABLET BY MOUTH DAILY FOR 3 DAYS, THEN ONE-HALF TABLET BY MOUTH DAILY FOR 3 DAYS, THEN STOP 04/02 completed Not Available Not Available Not Available nicotine 14 mg/24 hr daily transdermal patch Apply 1 patch every day by transderm al route. 05/01 completed Not Available Not Available Not Available ipratropium 0.5 mg-albutero l 3 mg (2.5 mg base)/3 mL nebulizatio n soln Inhale 3 mL 4 times a day by nebulizat ion route. 2024 active Not Available Not Available Not Avai lable Depo-Medrol 40 mg/mL suspension for injection Take 40 mg by injection route. 03/21 completed Not Available Not Available Not Available albuterol sulfate 2.5 mg/3 mL (0.083 %) solution for nebulizatio n Inhale 3 mL by nebulizat ion route. 2024 active Not Available Not Available Not Avai lable cilostazol 50 mg tablet TAKE 1 TABLET BY MOUTH TWICE DAILY 08/16 completed Not Available Not Available Not Available lisinopril 20 mg tablet TAKE 1 TABLET BY MOUTH EVERY DAY 08/16 completed Not Available Not Available Not Available prednisone 20 mg tablet Take 2 tablets every day by oral route for 5 days. 03/22 completed Not Available Not Available Not Available potassium chloride ER 10 mEq tablet,exte nded release TAKE 1 TABLET BY MOUTH EVERY DAY active Not Available Not Available No t Available clopidogrel 75 mg tablet TAKE 1 TABLET BY MOUTH EVERY DAY active Not Available Not Available No t Available amlodipine 5 mg tablet TAKE 1 TABLET BY MOUTH EVERY DAY active Not Available Not Available No t Available sulfamethox azole 800 mg-trimetho prim 160 mg tablet TAKE 1 TABLET BY MOUTH TWICE DAILY FOR 10 DAYS 03/08 completed Not Available Not Available Not Available Depo-Medrol 80 mg/mL suspension for injection Take 80 mg by injection route. 08/16 completed Not Available Not Available Not Available tamsulosin 0.4 mg capsule TAKE 1 CAPSULE BY MOUTH EVERY DAY 08/16 completed Not Available Not Available Not Available trazodone 100 mg tablet TAKE 2 & 1/2 TABLETS BY MOUTH ONCE EVERY NIGHT AT BEDTIME FOR 30 DAYS active Not Available Not Available No t Available lisinopril 10 mg tablet TAKE 1 TABLET BY MOUTH DAILY 11/11 completed Not Available Not Available Not Available nicotine 21 mg/24 hr daily transdermal patch Apply 1 patch every day by transderm al route for 7 days. 05/01 completed Not Available Not Available Not Available omeprazole 20 mg capsule,del ayed release TAKE 1 CAPSULE BY MOUTH EVERY MORNING active Not Available Not Available No t Available furosemide 20 mg tablet TAKE 1 TABLET BY MOUTH EVERY DAY active Not Available Not Available No t Available dexamethaso ne sodium phosphate 4 mg/mL injection solution Inject 4 mg by intramusc ular route. 03/21 completed Not Available Not Available Not Available levofloxaci n 500 mg tablet Take 1 tablet every 24 hours by oral route for 10 days. 02/24 completed Not Available Not Available Not Available albuterol sulfate HFA 90 mcg/actuati on aerosol inhaler USE 2 INHALATIO NS BY MOUTH EVERY 4 HOURS NEEDED active Not Available Not Available No t Available fluoxetine 20 mg capsule TAKE 1 CAPSULE BY MOUTH DAILY (TAKE 1 CAPSULE BY MOUTH EVERY DAY(take 40mg + 20mg for total of 60 mg) active Not Available Not Available No t Available fluticasone propionate 50 mcg/actuati on nasal spray,suspe nsion ADMINISTE R 1 SPRAY IN EACH nostril ONCE daily active Not Available Not Available No t Available amoxicillin 875 mg-potassiu m clavulanate 125 mg tablet TAKE 1 TABLET BY MOUTH EVERY 12 HOURS FOR 10 DAYS 09/08 completed Not Available Not Available Not Available nicotine 7 mg/24 hr daily transdermal patch Apply 1 patch every day by transderm al route. 05/01 completed Not Available Not Available Not Available Afrin (oxymetazol ine) 0.05 % nasal spray [place] 2 sprays twice a day by intranasa l route. 09/08 completed Not Available Not Available Not Available varenicline tartrate 1 mg tablet TAKE 1 TABLET BY MOUTH TWICE DAILY 02/02 completed Not Available Not Available Not Available varenicline tartrate 0.5 mg (11)-1 mg (42) tablets in a dose pack TAKE DIRECTED ON PACKAGE 02/02 completed Not Available Not Available Not Available budesonide- formoterol HFA 160 mcg-4.5 mcg/actuati on aerosol inhaler USE 2 INHALATIO NS BY MOUTH TWICE A DAY active Not Available Not Available No t Available aspirin 81 mg effervescen t tablet Take by oral route. active Not Available Not Available No t Available roflumilast 500 mcg tablet TAKE 1 TABLET BY MOUTH DAILY active Not Available Not Available No t Available fluoxetine 60 mg tablet Take by oral route for 30 days. 2024 active Not Available Not Available Not Shirley sneed guaifenesin ER 600 mg tablet, extended release 12 hr Take 1 tablet every 12 hours by oral route. 2024 active Not Available Not Available Not Shirley labmanfred Stiolto Respimat 2.5 mcg-2.5 mcg/actuati on solution for inhalation USE 2 INHALATIO NS EVERY DAY 01/24 completed Not Available Not Available Not Available Rexulti 1 mg tablet TAKE 1 TABLET BY MOUTH EVERY DAY active Not Available Not Available No t Available Rexulti 0.5 mg tablet Take as instruced ; sample pack 11/11 completed Not Available Not Available Not Available Boost High Protein 0.06 gram-1 kcal/mL oral liquid Chocolate flavor; Drink 1 boost daily 2024 active Not Available Not Available Not Shirley labmanfred roflumilast 250 mcg tablet TAKE 1 TABLET BY MOUTH EVERY DAY FOR 28 DAYS active Not Available Not Available No t Available Yupelri 175 mcg/3 mL solution for nebulizatio n Inhale 3 mL every day by nebulizat ion route. 2024 active Not Available Not Available Not Shirley labmanfred Breztri Aerosphere 160 mcg-9mcg-4. 8mcg/actuat ion HFA aerosol inhaler USE 2 INHALATIO NS BY MOUTH TWICE DAILY active Not Available Not Available No t Available Vitals Date Recorded Body height Body mass index (BMI) Body weight Body temperature Respiratory rate Heart rate Oxygen saturation Oxygen saturation in Arterial blood by Pulse oximetry Systolic And Diastolic Provider Name and Address Organization Details Last Updated DateTime 5 171.45 cm 20.8 kg/m2 30690.1 8 g 98.4 [degF] 18 /min 63 /min 98 % 98 % 118/62 mm[Hg] Mirela HAIR - [facility] 5 12:25:11 Date Recorded Body height Body mass index (BMI) Body weight Body temperature Respiratory rate Heart rate Oxygen saturation Oxygen saturation in Arterial blood by Pulse oximetry Systolic And Diastolic Systolic And Diastolic Provider Name and Address Organization Details Last Updated DateTime 5 171.45 cm 20.4 kg/m2 89294.5 9 g 98.6 [degF] 20 /min 98 /min 97 % 97 % 140/72 mm[Hg] 136/78 mm[Hg] Viky Bobby [facility] 5 11:39:52 Date Recorded Systolic And Diastolic Provider Name and Address Organization Details Last Updated DateTime 03/10/2025 135/70 mm[Hg] Iesha Guerrero [facility] 03/10/2025 12:08:30 Date Recorded Body height Body mass index (BMI) Body weight Body temperature Oxygen saturation Oxygen saturation in Arterial blood by Pulse oximetry Heart rate Systolic And Diastolic Provider Name and Address Organization Details Last Updated DateTime 5 171.45 cm 21.8 kg/m2 70107.2 2 g 97.6 [degF] 96 % 96 % 88 /min 154/74 mm[Hg] Benita Blanco [facility] 5 11:30:34 Date Recorded Body height Body weight Body mass index (BMI) Body temperature Respiratory rate Heart rate Oxygen saturation Oxygen saturation in Arterial blood by Pulse oximetry Inhaled oxygen flow rate Systolic And Diastolic Provider Name and Address Organization Details Last Updated DateTime 5 171.45 cm 46399.2 g 21.2 kg/m2 98.4 [degF] 18 /min 97 /min 99 % 99 % 3 L/min 124/62 mm[Hg] [facility] 5 10:38:27 Date Recorded Body height Body mass index (BMI) Body weight Body temperature Respiratory rate Heart rate Oxygen saturation Oxygen saturation in Arterial blood by Pulse oximetry Inhaled oxygen flow rate Systolic And Diastolic Provider Name and Address Organization Details Last Updated DateTime 5 171.45 cm 21.3 kg/m2 24793.7 5 g 98.6 [degF] 20 /min 57 /min 97 % 97 % 3 L/min 128/60 mm[Hg] [facility] 5 10:16:54 Social History Question Answer Notes LastModified by Organization Details LastModified Time Tobacco Smoking Status Current Every Day Smoker Mirela Wolf [facility] 01/24/2023 14:15:40 Do You Have An Advance Directive? No [email or web address] Information not available 01/24/2023 Do You Wear A Helmet When Biking? No Information not available 01/24/2023 Are You Blind Or Do You Have Difficulty Seeing? No [email or web address] Information not available 01/24/2023 Is Blood Transfusion Acceptable In An Emergency? Yes [email or web address] Information not available 01/24/2023 What Is Your Level Of Caffeine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 patient is instructed repeatedly that he is at high risk of and impending and that he needs to stop smoking today. He expressed a clear understand ing of this. He states that he knew that was the case even before he came to visit today. --The patient had a 6-minute walk test today and although he had extreme shortness of breath and his heart rate went up to around 140 he never required oxygen and saturation never went below 93% he clarified that he also had the same walking test that his primary care provider's office and he did not have drops in his oxygen there either. I think the measuremen ts he is having at home might be due to either an arrhythmia or to the fact that he is has a suboptimal device checking his oxygen. He does need to continue his oxygen at night which he has been instructed to do.Will get an ABG and follow-up in 1 month Tobacco user [id number] Z 72.0 906519 Since the age of 14 the time was up to 3 packs a day. Now down to 1 pack a day. This is the biggest threat right now he seems to be on okay management for his COPD at this point in time but I counseled him that he is at high risk of dying in a minute and that he needs to stop smoking as soon as possible. He states that he used nicotine patches in the past without any success. We discussed different therapeuti c options and we discussed the side effects associated with Chantix including suicide ideation and he wanted to proceed with the Chantix at this point in time. - Follow-up in 1 month Pulmonary emphysema 8743 3001 J43.9 [id number] He has been started on Breztri. He states that he uses it sometimes up to 4 times a day. He was counseled to reduce it to just 2 puffs twice a day. He has a nebulizer at home but he lives off the grid and does not have oxygen. He has oxygen at home but sometimes he has to skip using it because he lives off the grid he states he did recently upgrade to a green generator when turbine generator and solar panels so now he thinks he might be able to use his oxygen throughout the night. But now he states he only uses it about 10 days a month because of living off the grid. He denies ever being admitted to the hospital. Denies any hemoptysis or chest pain. He has shortness of breath which is chronic. Sometimes can hear himself wheezing and uses Breztri as his rescue inhaler. He was counseled accordingl y. He has been smoking since age of 14 up to 3 packs a day now down to a pack a day. And has been on oxygen at night for a year and a half and has been using his neighbors oxygen during the day. He did recall recently having a 6-minute walk test where he said he did not have a drop in his oxygen however when he measures it at home he states sometimes been going on as low as 70. - He had spirometry performed on August 16, 2024 that showed an FEV1 of 0.52 L or 20% predicted, and FVC of 1.77 L or 41% predicted, and a ratio of 29 and that was the best thing to do after 5 trials. His volume-judith e curve failed to reach plateau and his flow-volum e loop had suboptimal morphology and it seemed to be as though he had some sharp spikes suggesting he may have had coughing during the procedure. But there was a total of 5 trials and all the numbers are about the same. His lung age is estimated to be 819 years old and he was counseled accordingl y. - We will order DuoNeb for him - I will order Daliresp for him - He is upgraded his electricit y at home but I counseled him that he may need to get back on the grid so to speak in order to have the oxygen and nebulizers that he needs to stay alive and I instructed him that if his symptoms fail to improve or get worse he should go immediatel y to the hospital. Follow-up in 1 month [id number] KORI ANTONIO DO [facility] [address] [place] [address] 11/02/2024 10:36:57 11/03/2024 16:02:03 Acute exacerbation of chronic obstructive pulmonary disease [id number] J44.1 884775 Albuterol treatment given in clinic and wheezing improved.Lucie olea had a 6 minute walk test but his 02 saturation went up.Will keep his follow up with Dr. Kaspre on October via zoom.albut anju updraft administer ed in clinic. Wheezing improved.A script for steroids sent to pharmacy(P rednisone 40 mg for 5 days) Body mass index 20-24 - normal [id number] Z68.20 12125489 BMI 20.7 Diet education 91654729 Z71.3 Exercises education, guidance, and counseling 234616474 Z71.82 [id number] Pineda K[address] MD [facility] [address] [place] [address] 11/04/2024 15:41:08 11/08/2024 07:54:24 Chronic obstructive pulmonary disease 01083389 J44.9 [id number] He has been started on Breztri. He states that he uses it sometimes up to 4 times a day. He was counseled to reduce it to just 2 puffs twice a day.He has a nebulizer at home but he lives off the grid and does not have oxygen.He has oxygen at home but sometimes he has to skip using it because he lives off the grid he states he did recently upgrade to a green generator when turbine generator and solar panels so now he thinks he might be able to use his oxygen throughout the night. But now he states he only uses it about 10 days a month because of living off the grid.He denies ever being admitted to the hospital. Denies any hemoptysis or chest pain. He has shortness of breath which is chronic. Sometimes can hear himself wheezing and uses Breztri as his rescue inhaler. He was counseled сергей trejo. He has been smoking since age of 14 up to 3 packs a day now down to a pack a day. And has been on oxygen at night for a year and a half and has been using his neighbors oxygen during the day. He did recall recently having a 6-minute walk test where he said he did not have a drop in his oxygen however when he measures it at home he states sometimes been going on as low as 70.- He had spirometry performed on August 16, 2024 that showed an FEV1 of 0.52 L or 20% predicted, and FVC of 1.77 L or 41% predicted, and a ratio of 29 and that was the best thing to do after 5 trials. His volume-judith e curve failed to reach plateau and his flow-volum e loop had suboptimal morphology and it seemed to be as though he had some sharp spikes suggesting he may have had coughing during the procedure. But there was a total of 5 trials and all the numbers are about the same. His lung age is estimated to be 819 years old and he was counseled сергей trejo.- We will order DuoNeb for him- I will order Daliresp for him- He is upgraded his electricit y at home but I counseled him that he may need to get back on the grid so to speak in order to have the oxygen and nebulizers that he needs to stay alive and I instructed him that if his symptoms fail to improve or get worse he should go immediatel y to the hospital. Follow-up in 1 month -The patient has been counseled that he is at extremely high risk of sudden and that he should go immediatel y to the emergency room if he fails to improve or if his symptoms get worse. He explains that he has been living with very similar symptoms for about a decade. He states that he been fighting end-stage COPD and tobacco addiction for about 15 years and has been on oxygen for a year and a half. He states he lives off the grid and that is his preference .Will give a DuoNeb treatment before he leaves today.- Patient counseled he does not need oxygen during the day at this point he has had two 6-minute walk test at 2 different offices and never went below 93%. He will continue his oxygen at night as prescribed previously .11/04/2024 . Continue to Daliresp. Continue Breztri. He is using his nebulizer twice a day to conserve batteries because he has to use oral electricit y which basically runs on a generator. He states he can afford to buy more batteries right now because of $500 each. I counseled him that he should he get worse at all or fail to improve that he should go immediatel y to the emergency room. He has significan t accessory muscle use dyspnea and apparently has been this way for quite some time he seems to think that it is normal to feel this way because he is about this way for so long. Right now he is using Breztri, using nebulizer twice a day using the Daliresp. Not requiring his rescue inhaler uses oxygen at night. And working on smoking cessation. He has a high chance of mortality end-stage lung disease not a candidate for transplant due to his continued smoking use. Follow-up in 2 months. Chronic hy poxemic respiratory failure [id number] J96.11 119915 Check a 6-minute walk test today. He already has oxygen at night. He has been using his neighbors oxygen during the day but he states that he is cut himself during down to 70% saturation and sometimes in the 80s as well. Will test him for sleep and walk test today to see if he needs oxygen during the day.-Ultim ately the patient will need to be able to get an ABG as well. So I will order an arterial blood gas to be done we will follow-up on next visit. The patient is instructed repeatedly that he is at high risk of and impending and that he needs to stop smoking today. He expressed a clear understand ing of this. He states that he knew that was the case even before he came to visit today. --The patient had a 6-minute walk test today and although he had extreme shortness of breath and his heart rate went up to around 140 he never required oxygen and saturation never went below 93% he clarified that he also had the same walking test that his primary care provider's office and he did not have drops in his oxygen there either. I think the measuremen ts he is having at home might be due to either an arrhythmia or to the fact that he is has a suboptimal device checking his oxygen. He does need to continue his oxygen at night which he has been instructed to do.Will get an ABG and follow-up in 1 month 11/04/2024. Used oxygen in the past. Using oxygen at night. 6-minute walk test showed no desaturati ons below 93%. Still uses oxygen at night but states he uses sparingly because he has difficulty getting batteries for his electrical electricit [place]. [place]. - Will order ABG to see if he is retaining CO2 once he is able to do it. He states he is unable to do it because his car was broken down. So we will reschedule ABG. Follow-up in 2 months Tobacco user [id number] Z 72.0 540171 Since the age of 14 the time was up to 3 packs a day. Now down to 1 pack a day. This is the biggest threat right now he seems to be on okay management for his COPD at this point in time but I counseled him that he is at high risk of dying in a minute and that he needs to stop smoking as soon as possible. He states that he used nicotine patches in the past without any success. We discussed different therapeuti c options and we discussed the side effects associated with Chantix including suicide ideation and he wanted to proceed with the Chantix at this point in time.- Follow-up in 1 month2024. The patient used the Chantix for the 2 months and he states it did reduce his smoking however it made him feel weird and have weird thoughts so he did not want to refill it. He states this point out he plans on quitting cold turkey. Follow-up in 2 months Pulmonary emphysema 8743 3001 J43.9 [id number] He has been started on Breztri. He states that he uses it sometimes up to 4 times a day. He was counseled to reduce it to just 2 puffs twice a day. He has a nebulizer at home but he lives off the grid and does not have oxygen. He has oxygen at home but sometimes he has to skip using it because he lives off the grid he states he did recently upgrade to a green generator when turbine generator and solar panels so now he thinks he might be able to use his oxygen throughout the night. But now he states he only uses it about 10 days a month because of living off the grid. He denies ever being admitted to the hospital. Denies any hemoptysis or chest pain. He has shortness of breath which is chronic. Sometimes can hear himself wheezing and uses Breztri as his rescue inhaler. He was counseled сергей trejo. He has been smoking since age of 14 up to 3 packs a day now down to a pack a day. And has been on oxygen at night for a year and a half and has been using his neighbors oxygen during the day. He did recall recently having a 6-minute walk test where he said he did not have a drop in his oxygen however when he measures it at home he states sometimes been going on as low as 70. - He had spirometry performed on August 16, 2024 that showed an FEV1 of 0.52 L or 20% predicted, and FVC of 1.77 L or 41% predicted, and a ratio of 29 and that was the best thing to do after 5 trials. His volume-judith e curve failed to reach plateau and his flow-volum e loop had suboptimal morphology and it seemed to be as though he had some sharp spikes suggesting he may have had coughing during the procedure. But there was a total of 5 trials and all the numbers are about the same. His lung age is estimated to be 919 years old and he was counseled сергей trejo. - We will order DuoNeb for him - I will order Daliresp for him - He is upgraded his electricit y at home but I counseled him that he may need to get back on the grid so to speak in order to have the oxygen and nebulizers that he needs to stay alive and I instructed him that if his symptoms fail to improve or get worse he should go immediatel y to the hospital. Follow-up in 1 month [id number] KORI ANTONIO DO [facility] [address] [place] [address] 02/02/2025 11:59:56 02/03/2025 08:18:48 Chronic obstructive pulmonary disease 32448496 J44.9 Will discontinu e the breztri due to ineffectiv eness and can try symbicort. Diabetes m ellitus screening 256941569 Z13.1 318540 HIV screening 290620155 Z11.4 511773 Body mass index 20-24 - normal 966069998 Z68.20 45641257 BMI 20.8 Diet education 02005563 Z71.3 Exercises education, guidance, and counseling 438804442 Z71.82 Eye / vision finding 118 0723[address]53.[address] of brain and referral to ophthalmol comfort for further evaluation . Nausea 181387498 R11.0 83175 Numbness of face 5486567 09 R20.0 752031 Will arrange for a CT scan of the brain to further evaluate intermitte nt right lower jaw numbness and progressiv e visual changes in the right eye. [id number] KORI ANTONIO [facility] [address] [place] [address] 02/07/2025 11:10:52 02/08/2025 08:21:13 Acute exacerbation of chronic obstructive pulmonary disease 946496877 J44.1 578339 During the walk test, the patient s oxygen saturation dropped to 87%.His 02 saturation went up to 94% on 2L of oxygen. Spoke with [facility] and they will be delivering him oxygen todayDepom edrol 40 mg and dex 4 mg given and Albuterol +atrovent treatment given while in clinicA script for steroids sent to pharmacy(P rednisone 40 mg for 5 days) and course of antibiotic s.If worsening go to the Emergency Room; Patient voiced understand ing. Body mass index 20-24 - normal 126612874 Z68.20 48308810 BMI 20.8 [id number] KORI ANTONIO [facility] [address] [place] [address] 03/10/2025 11:20:33 03/10/2025 12:54:37 History of cataract 936945784 Z86.69 6828997 Body mass index 20-24 - normal 783946033 Z68.21 15412963 BMI 21.8 Acute exac erbation of chronic obstructive pulmonary disease 950721881 J44.1 210130 A sample of Kaitlynlri was given. Patient instructed to call the clinic if effective so a prescripti on can be sent to the pharmacy.D epo-Medrol 40 mg and dexamethas one 4 mg administer ed IMGuaifene sin prescribed twice daily to aid in mucus clearance. Daliresp restarted as part of the daily regimen.Fam villarreal voiced understand ing of the treatment plan and follow-up instructio ns. Diet education 48009868 Z71.3 Exercises education, guidance, and counseling 339620009 Z71.82 [id number] [facility] [address] [place] [address] 03/21/2025 10:29:23 03/21/2025 13:47:36 Chronic obstructive pulmonary disease 54560836 J44.9 Patient assistance applicatio n completed for the Yupelri.Fam villarreal requests a home health referral for assistance with household tasks.Refe rral to be initiated to assess eligibilit y and available support services.W ill check on meals on wheels for patient Diet education 81596805 Z71.3 Exercises education, guidance, and counseling 926560320 Z71.82 Cigarette smoker 2250145 7 F17.210 339735 History an d physical examination, annual for health maintenance 50794929 Z00.00 [id number] Patient presented to office today for their Medicare Annual Wellness Visit. Depressive disorder 1245 9002 F32.A Will increase the fluoxetine to 60 mg daily. Patient denies current suicidal thoughts. Influenza vaccination declined 802060231 Z28.21 38131164 Influenza vaccine declined [id number] KORI ANTONIO DO [facility] [address] [place] [address] 03/31/2025 10:06:38 03/31/2025 10:50:20 Body mass index 20-24 - normal 128178242 Z68.21 09570830 BMI 21.3 Diet education 93825962 Z71.3 Exercises education, guidance, and counseling 883205977 Z71.82 Atrial fibrillation 4943 6004 I48.91 [id number] EKG reviewedMarito thompson called at 9:40 AMIV started at 9:45 AMAmbulanc e left at 10:05 AM Dependence on supplemental oxygen 3902814602 07 Z99.81 Chronic ob structive pulmonary disease 36989925 J44.9 Health Concerns Section Related Observation LastModified by Organization Detai ls LastModified Time None Recorded Concern Status LastModified by Organization Details LastModified Time None Recorded Advance Directives Directive N: Payers Insurance Date Sequence Insurance Name Policy Number Policy Mcgowan Covered Member ID Mcgowan Member ID Guarantor Name 03/10/2025 1 [facility] (MEDICARE REPLACEMENT/A DVANTAGE - HMO) Darren Foley [id number] Darren Foley 03/10/2025 3 [facility] (MEDICARE REPLACEMENT/A DVANTAGE - PPO) Darren Foley [id number] Darren Foley 03/10/2025 1 [facility] (MEDICARE REPLACEMENT/A DVANTAGE - HMO) Darren Foley [id number] Darren Foley 03/10/2025 2 [place] Darren Foley Jr [id number] Darren Foley 03/10/2025 1 [place]MEDICARE RE[place]ACEMENT HMO[place] [id number] Draren Foley Jr [id number] Darren Foley 03/10/2025 2 [place] [facility] Darren Foley [id number] Darren Foley 03/30/2025 1 [place]MEDICARE REPLACEMENT HMO) [id number] Darren Foley Jr [id number] Darren Foley 03/10/2025 2 [place] [facility] Darren Foley [id number] Darren Foley 03/30/2025 3 [place] [facility] Darren Foley Jr [id number] Darren Foley Notes Date Note Type Note Provider Name and Address Organization Details Recorded Time 02/02/2025 text/html Patient complains of intermittent numbness in the right lower jaw for approximately two months, progressive worsening of vision in the right eye since onset of jaw symptoms. He feels like the breztri has been ineffective and would like a different inhaler. He also has had nausea and thinks it is due to one of his medications. He said he can't afford the boost but is going to get signed up for meals on wheels. Cindy Joseph NP [address], [address], [facility] 02/02/2025 15:03:32 02/07/2025 text/html The patient reports that he had to call an ambulance yesterday due to difficulty breathing. His oxygen saturation was in the 70s at the time, which improved to the 90s after oxygen was administered. He declined transport to the emergency room. He has not yet completed a breathing treatment today. Cindy Joseph NP [address], [address], [facility] 02/07/2025 14:12:55 03/10/2025 text/html Patient reports several days of shortness of breath accompanied by a cough. He is having difficulty expectorating phlegm. He is currently using an inhaler but is interested in discussing alternative options. No fever or chest pain reported. Cindy Joseph NP [address], [id number], [facility] 03/10/2025 12:39:28 03/21/2025 text/html Medicare Annual Wellness VisitReported by PatientSocial/Behaviora l HistoryFor physical activity, patient reportspoor physical condition. For diet and nutrition, patient reportshealthy dietanddiscussed diet improvement. For fracture risk, patient reportsno history of fractures,no recent explained fracture,no sudden unexplained fractures, andno previous musculoskeletal injuries.Mental Status:For depression risk, patient reportshistory of depressionbut reportsnever feels sad, empty, or tearful,no loss of interest in activities,no significant changes in weight,no sleep disturbances or insomnia,no agitation,no loss of energy,no feelings of worthlessness or guilt,no thoughts of suicide, andno history of mood disorders. For concentration and memory, patient reportsmemory lapses or lossbut reportsno decreased concentrating abilityanddoes not forget words. For speech/motor difficulties, patient reportsdifficulty with fine manipulative tasksanddifficulty writing/copyingbut reportsno speech difficulties,no difficulty expressing formulated concepts,no slowed reaction time, anddoes not knock things over when trying to pick them up. For orientation, patient reportsno disorientation to time,no disorientation to date, andno disorientation to place.Functional AbilityFor instrumental activities of daily living, patient reportsunable to do house work without assistance,unable to grocery shop without assistance, andunable to to prepare meals without assistancebut reportsable to manage medications with limited or no assistance,able to manage money with limited or no assistance, andable to use the phone with limited or no assistance. For home safety, patient reportsno smoke/co detectors,does not use seatbelts,fire arms, anddoes not have hand bars in the bathroom/showerbut reportsno unsafe edi hazzards,no unsafe stairs,no unsafe gas appliances,practicing 'safer sex',no vision or hearing loss while driving, andgood lighting in the home(lives in a camper). For hearing, patient reportsno loss of hearing. For vision, patient reportsno vision problems. For activities of daily living, patient reportsable to bathe with limited or no assistance,able to contol urination and bowels,able to dress with limited or no assistance,able to feed self with limited or no assistance,able to get out of chair or bed with limited or no assistance,able to groom with limited or no assistance, andable to toilet with limited or no assistance. For falls risk assessment, patient reportsno frequent falls while walking,no fall since last visit,no dizziness/vertigo, andfall(s) in the past year 1. Patient is here for Medicare Wellness ExamAt his last visit, the patient was given a sample of Yupelri, which he reports worked very well.He has run out of his rescue inhaler and noted that he does not get paid until Friday.The patient requested assistance in checking on eligibility for the Meals on Wheels program.He lives off the grid and relies on solar panels and a generator to power his oxygen equipment.The patient reports feeling depressed, which he attributes to the recent gloomy weather. Cindy Joseph, REINIER [address], [address], [facility] 03/21/2025 15:58:12 03/31/2025 text/html Patient presents with complaints of his A-Fib acting up. He is currently on 3L of oxygen. He has been more short of breath than usual. He also has noticed some swelling in his feet. He is feeling dizzy. He is not seeing a track repairer. He was advised to go to the ER yesterday but he had refused. He has agreed to go the ER today. Cindy Joseph NP [address] [place] [address], [phone], [facility] 03/31/2025 11:42:17
--- OUTSIDE RECORDS SUMMARY | 2025-03-31 11:27 | XMS_ITS | Clinical Summary ---
Author Organization [facility] Address [address] [place] [phone] Care Team Providers Care Wood Tile Installation Helper Name Role Phone Donal Blackburn MD Primary Care Provider [phone] Allergies Active Allergy Reactions Criticality Noted Date Comments Amlodipine Other (See Comments) Low 07/06/2020 Joint swelling Lisinopril Swelling Low 07/21/2020 Medications albuterol HFA 90 mcg inhalerIndication s:Chronic obstructive pulmonary disease with acute exacerbation (CMS/HCC) Take 2 Puffs by inhalation every 6 hours as needed for Shortness of Breath. 18 Gram 2 1 Active traZODone (DESYREL) 100 mg tabletIndications :Insomnia, unspecified type Take 2 Tablets (200 mg) by mouth daily at bedtime. 180 Tablet 3 1 Active predniSONE (DELTASONE) 10 mg tabletIndications :Chronic obstructive pulmonary disease with acute exacerbation (CMS/HCC) Take 4 tablets x 3 days then 3 tablets x 3 days then 2 tablets x 3 days then 1 tablet x 3 days 30 Tablet 1 Active ipratropium-albut Ruel (COMBIVENT RESPIMAT) 20-100 mcg/actuation MistIndications:C hronic obstructive pulmonary disease with acute exacerbation (CMS/HCC) Take 1 Puff by inhalation every 6 hours. 4 Gram 3 1 Active budesonide-formot Ruel (SYMBICORT) 160-4.5 mcg/actuation HFA Aerosol InhalerIndication s:Chronic obstructive pulmonary disease with acute exacerbation (CMS/HCC) Take 2 Puffs by inhalation 2 times daily. 10.2 Gram 3 1 Active metoprolol tartrate (LOPRESSOR) 25 mg tabletIndications :Benign hypertension TAKE 1 TABLET(25 MG) BY MOUTH DAILY 180 Tablet Active Active Problems Problem Noted Date Diagnosed Date Insomnia 10/12/2020 Chronic obstructive pulmonar y disease with acute exacerbation 06/28/2020 Benign hypertension 06/28/2020 Social History Tobacco Use Types Packs/Day Years Used Date Smoking Tobacco: Smoker, Current Status Unknown Cigarettes 1 45 Smokeless Tobacco: Never Tobacco Cessation:Ready to Q uit: No; Counseling Given: Yes Sex and Gender Information Value Date Recorded Sex Assigned at Not on file Legal Sex Male 11:38 AM QUALITY RN Gender Identity Not on file Sexual Orientation Not on file Last Filed Vital Signs Vital Sign Reading Time Taken Comments Blood Pressure 138/80 10/12/2020 11:46 AM CDT Pulse 93 10/12/2020 11:46 AM CDT Temperature 37.1 C (98.8 F) 10/12/2020 11:46 AM CDT Respiratory Rate 20 10/12/2020 11:46 AM CDT Oxygen Saturation 97% 10/12/2020 11:46 AM CDT Inhaled Oxygen Concentration - - Weight 68.5 kg (151 lb) 10/12/2020 11:46 AM CDT Height 175.3 cm (5' 9 ) 10/12/2020 11:46 AM CDT Body Mass Index 22.3 10/12/2020 11:46 AM CDT Plan of Treatment Health Maintenance Due Date Last Done Comments FIT/ DNA Q 3 YEARS (AUTO ORDER) 1979 FIT/FOBT Q 1 YEAR (AUTO ORDER) 1979 FLEX SIG/CT COLONOGRAPHY Q 5 YEARS (AUTO ORDER) 1978 DTAP/TDAP/TD VACCINES (1 - Tdap) 02/14/1980 COLORECTAL CANCER SCREENING (AUTO ORDER) 2006 COLORECTAL SCREENING 2006 Colorectal Cancer Screening (AUTO ORDER) 2006 Colorectal Cancer Screening 2006 FIT-DNA Q 3 years 2006 FIT/FOBT Q 1 year 2006 Flex Sig/CT Colonography Q 5 years 2006 RSV VACCINE (60+ or ) (1 - Risk 50-74 years 1-dose series) 2011 ZOSTER VACCINE (1 of 2) 2011 Medicare Advantage ([place]) Prev entative Visit/Annual Wellness Visit 05/26/2024 INFLUENZA VACCINE (#1) 2024 06/28/2020 Insurance [facility] DUAL COMPLETE Care Teams Wood Tile Installation Helper Relationship Specialty Start Date End Date Donal Blackburn MD [address] [facility] [address] [place] [address] PCP - General Family Practice 06/28/20
--- OUTSIDE RECORDS SUMMARY | 2025-03-31 11:27 | XMS_ITS | Continuity of Care Document ---
Author Organization [facility] Address [address] [place] [address] Assessment No assessment recorded. Plan of Treatment Reminders Order Date Submit Date Provider Last Modified By Organization Details Last Modified Time Details Appointments ESTABLISH ED PATIENT 20 2024 09:20A M Cindy Joseph NP Not available Not available Not available Lab None recorded. Referral None recorded. Procedures None recorded. Surgeries None recorded. Imaging None recorded. Medication Orders None recorded. Patient TargetsNo targets recorded. Patient Instructions Encounter Date Encounter Id Patient Instructions Last Modified By Organization Details Last Modified Time 03/31/2025 [id number] heart-healthy diet: care instructions [email or web address] Not available 03/31/2025 10:19:35 walking for exercise: care instructions Not available 03/31/2025 10:19:35 Reason for Referral None Reported. Results Created Date Observation Date Name Description Value Unit Range Abnormal Flag Note LastModifiedBy Organization Detail LastModifiedTime 03/31/20 25 03/31/2025 elect devin copegr am No observ ation record ed. BARCODE Not Available 2024 11:01:23 Result Notes None recorded. Problems Name Problem SNOMED Code Status Onset Date Resolution Date Notes Provider Name and Address Organization Details Recorded Time Insomnia 969429380 Active 2022 [facility] 3 14:19:50 Chronic obstructive pulmonary disease 76621476 Active 2022 [facility] 3 14:34:12 Cigarette smoker 65977665 Active 2022 [facility] 3 10:40:06 Depressive disorder 61911322 Active 2022 [facility] 3 10:40:08 Hypertensiv e disorder 12605078 Active 2022 [facility] 3 10:40:10 Literacy problems 997275351 Active 2022 [facility] 3 14:15:31 Coronary arterioscle rosis 31696079 Active 2023 Cindy Joseph NP [address], [address] [place] [address] 4 16:53:47 Dependence on supplementa l oxygen 714213208815 Active 2023 Cindy Joseph NP [address], [address] [place] [address] 4 12:21:14 Atrial fibrillatio n 94385817 Active 2024 [facility] 5 14:12:19 Problem Notes None recorded. Procedures Surgical History Date Name Laterality Status Provider Name and Address Organization Details Recorded Time 5 IV Start completed [facility] 03/31/2025 10:58:25 5 Nebulizer tx albuterol completed [facility] 02/07/2025 12:15:28 5 Measure Blood Oxygen Level completed [facility] 02/07/2025 12:02:42 5 Nebulizer tx albuterol completed [facility] 11/02/2024 11:25:48 4 Suture/Staple removal completed TUSHAR BURKETT NP [address], [address], [facility] 02/02/2024 17:29:25 4 Excision and closure Face B9 1.1-2 cm completed Cindy Joseph NP [address], [address], [facility] [address] 01/29/2024 12:39:24 Imaging Results None recorded. Procedure Notes None recorded. Medical Equipment None Reported. Allergies Allergen ID Allergen Name Allergen Category Reaction Reaction Severity Criticality Documentation Date Start Date Code Code System Note Provider Name and Address Organization Details Recorded Time 19907 amlodipin e medicatio n Not available Not available low 03/15/20252020 91494 RxNorm Joint swell ing Not Available [employer] - prod 10:38:00 31905 lisinopri l medicatio n swelling Not available low 03/15/20252020 00629 RxNorm Not Available [employer] - prod 10:38:00 Medications Name [...] Afrin (oxymetazol ine) 0.05 % nasal spray Renick 2 sprays twice a day by intranasa [...] Not Available Not Available Not Avai lable guaifenesin ER 600 mg tablet, extended release 12 hr Take 1 tablet every 12 hours by oral route. 2024 active Not Available Not Available Not Avai labmanfred Stiolto Respimat 2.5 mcg-2.5 mcg/actuati on [...] Not Available Not Available Not Avai lable roflumilast 250 mcg tablet TAKE 1 TABLET BY MOUTH EVERY DAY FOR 28 DAYS active Not Available Not Available No t Available Yupelri 175 mcg/3 mL solution for nebulizatio n Inhale 3 mL every day by nebulizat ion route. 2024 active Not Available Not Available Not Avai lable Breztri Aerosphere 160 mcg-9mcg-4. 8mcg/actuat ion HFA [...] Updated DateTime 5 171.45 cm 21.3 kg/m2 57400.7 5 g 98.6 [degF] 20 /min 57 /min 97 % 97 % 3 L/min 128/60 mm[Hg] Mirela Wolf [facility] 5 10:16:54 Social History Question Answer Notes LastModified by Organization Details LastModified Time Tobacco Smoking Status Current Every Day Smoker Mirela willett [facility] 01/24/2023 14:15:40 Do You Have An Advance Directive? No Information not available 01/24/2023 Do You Wear A Helmet When Biking? No [email or web address] Information not available 01/24/2023 Are You Blind Or Do You Have Difficulty Seeing? No [email or web address] Information not available 01/24/2023 Is Blood Transfusion Acceptable In An Emergency? Yes [email or web address] Information not available 01/24/2023 What Is Your Level Of Caffeine Consumption? Moderate [email or web address] Information not available 08/16/2024 In The 14 Days Before Symptom Onset, Have You Had Close Contact With A Laboratory-confi rmed COVID-19 While That Case Was Ill? No [email or web address] Information not available 01/24/2023 In The 14 Days Before Symptom Onset, Have You Had Close Contact With A Person Who Is Under Investigation For COVID-19 While That Person Was Ill? No [email or web address] Information not available 01/24/2023 Have You Been To An Area Known To Be High Risk For COVID-19? No [email or web address] Information not available 01/24/2023 Are You Deaf Or Do You Have Serious Difficulty Hearing? No Information not available 01/24/2023 What Type Of Diet Are You Following? REGULAR [email or web address] Information not available 01/24/2023 Which Illicit Or Recreational Drugs Have You Used? Edible Marijuana [email or web address] Information not available 11/04/2024 Have You Processed Blood Or Body Fluids From An Ebola Virus Disease Patient Without Appropriate PPE? No [email or web address] Information not available 01/24/2023 What Is The Highest Grade Or Level Of School You Have Completed Or The Highest Degree You Have Received? [id number] [email or web address] Information not available 01/24/2023 How Many Years Have You Used Illicit Or Recreational Drugs? 50 Information not available 09/08/2024 In The Past 6 Months Have You Fallen Yes [email or web address] Information not available 01/24/2023 Have You Ever Been Tested For Hepatitis C Yes [email or web address] Information not available 01/24/2023 Have You Had A Blood Transfusion Before 1991? No [email or web address] Information not available 01/24/2023 Have You Had Senior Care Dialysis? No [email or web address] Information not available 01/24/2023 Have You Ever Used Injectable Drugs, Even Once? No [email or web address] Information not available 01/24/2023 Do You Have Tattoos Or Body Piercings? Yes [email or web address] Information not available 01/24/2023 Have You Had Close Contact With An Individual With Hepatitis C? No [email or web address] Information not available 01/24/2023 Have You Ever Had Sex For Drugs Or Money? No Information not available 01/24/2023 Have You Ever Had Unprotected Sex? No [email or web address] Information not available 01/24/2023 Have You Been Incarcerated For Longer Than 6 Months? Yes [email or web address] Information not available 01/24/2023 Have You Tested Positive For HIV? No [email or web address] Information not available 01/24/2023 Do You Have A History Of Fist Fighting Or Combat Experience? Yes [email or web address] Information not available 01/24/2023 Medication List Reconciled No Pt Unable To Verify [email or web address] Information not available 02/07/2025 What Number (0-10) Best Describes How, During The Past Week, Has Interfered With Your General Activity? 0 [email or web address] Information not available 01/24/2023 What Number (0-10) Best Describes How, During The Past Week, Pain Has Interfered With Your Enjoyment In The Past Week 0 [email or web address] Information not available 01/24/2023 What Number (0-10) Best Describes Your Pain On Average In The Past Week 0 Information not available 09/08/2024 Total PEG Score 0 Informati on not available 09/08/2024 Sexual Orientation Straight Or Heterosexual [email or web address] Information not available 01/24/2023 Gender Identity Male [email or web address] Informati on not available 01/24/2023 Do You Feel Safe Yes [email or web address] Informat ion not available 09/08/2024 What Was The Date Of Your Most Recent Tobacco Screening? 03/31/2025 [email or web address] Information not available 03/31/2025 How Many Children Do You Have? 2 [email or web address] Information not available 01/24/2023 Do You Use Protection During Sex? No [email or web address] Information not available 01/24/2023 What Is Your Relationship Status? Domestic Partner [email or web address] Information not available 01/24/2023 Do You Use Your Seat Belt Or Car Seat Routinely? Yes Information not available 01/24/2023 Are You Sexually Active? Yes [email or web address] Information not available 01/24/2023 At What Age Did You Start Smoking Tobacco? 14 Information not available 09/08/2024 How Much Tobacco Do You Smoke? 0.5 PPD 7 Cigarettes Daily- 11/04/24 [facility] [email or web address] Information not available 11/04/2024 How Many Years Have You Smoked Tobacco? 53 Information not available 09/08/2024 Have You Used IV Drugs? No Information not available 01/24/2023 Do You Have Difficulty Walking Or Climbing Stairs? No [email or web address] Information not available 01/24/2023 Do You Want To Talk About Contraception Or Prevention During Your Visit Today? No - I Do Not Want To Talk About Contraception Today Because I Am Here For Something Else Information not available 09/08/2024 Sex: Male Functional Status Question Answer Note LastModified by [employer] Details LastModified Time Do you use any illicit or recreational drugs? Yes [email or web address] Information not available 11/04/2024 Do you or have you ever used any other forms of tobacco or nicotine? No [email or web address] Information not available 01/24/2023 What is your level of alcohol consumption? None Information not available 11/12/2023 Are you currently employed? No [email or web address] Information not available 01/24/2023 Do you have transportation difficulties? Yes [email or web address] Information not available 01/24/2023 Are you able to walk independently without assistance or assistive devices? YESWOREST [email or web address] Information not available 01/24/2023 Do you have difficulty doing errands alone? No [email or web address] Information not available 01/24/2023 Are you able to care for yourself independently? Yes [email or web address] Information not available 01/24/2023 Do you have difficulty dressing, bathing, grooming, or toileting? No [email or web address] Information not available 01/24/2023 What is your exercise level? None [email or web address] Information not available 01/24/2023 Mental Status Question Answer Note LastModified by [employer] Details LastModified Time Do you feel stressed (tense, restless, nervous, or anxious, or unable to sleep at night)? [id number] [email or web address] Information not available 01/24/2023 Do you have difficulty concentrating, remembering or making decisions? No [email or web address] Information no t available 01/24/2023 Family History [...] Anemia N Colon Polyps N Heart Attack (CA) Y Diabetes N Ovarian Cancer N Bedwetting N Seizures/Epilepsy N Amnesia N Congestive Heart Failure (CHF) N Eczema N Dementia N Diverticulitis N Abuse/Domestic Violence N Cardiovascular Y Tourette Syndrome N Hypertension N Pre-Eclampsia N Osteoporosis N Immunizations Vaccine Type Date Status Note Provider Nam e and Address Organization Details Recorded Time Influenza, MDCK, trivalent, PF 03/08/2024 completed Cindy Joseph NP [address], [address], [facility] 03/08/2024 12:19:41 Past Encounters Encounter ID Performer Location Encounter Start Date Encounter Closed Date Diagnosis/Indication Diagnosis SNOMED-CT Code Diagnosis ICD10 Code Diagnosis IMO Codes Diagnosis Note [id number] KORI ANTONIO DO [facility] [address] [place] [address] 03/10/2025 11:20:33 03/10/2025 12:54:37 History of cataract 870564749 Z86.69 2217799 Body mass index 20-24 - normal 179839058 Z68.21 88427758 BMI 21.8 Acute exac erbation of chronic obstructive pulmonary disease 265875452 J44.1 980306 A sample of Yupelri was given. Patient instructed to call the clinic if effective so a prescripti on can be sent to the pharmacy.D epo-Medrol 40 mg and dexamethas one 4 mg administer ed IMGuaifene sin prescribed twice daily to aid in mucus clearance. Daliresp restarted as part of the daily regimen.Fam villarreal voiced understand ing of the treatment plan and follow-up instructio ns. Diet education 83356144 Z71.3 Exercises education, guidance, and counseling 978764932 Z71.82 [id number] KORI ANTONIO DO [facility] [address] [place] [address] 03/21/2025 10:29:23 03/21/2025 13:47:36 Chronic obstructive pulmonary disease 67872760 J44.9 Patient assistance applicatio n completed for the Yupelri.Fam villarreal requests a home health referral for assistance with household tasks.Refe rral to be initiated to assess eligibilit y and available support services.W ill check on meals on wheels for patient Diet education 53241321 Z71.3 Exercises education, guidance, and counseling 206659922 Z71.82 Cigarette smoker 3343158 7 F17.210 819594 History an d physical examination, annual for health maintenance 79167633 Z00.00 [id number] Patient presented to office today for their Medicare Annual Wellness Visit. Depressive disorder 8969 4759 F32.A Will increase the fluoxetine to 60 mg daily. Patient denies current suicidal thoughts. Influenza vaccination declined 655574868 Z28.21 30894888 Influenza vaccine declined [id number] KORI ANTONIO DO [facility] [address] [place] [address] 03/31/2025 10:06:38 03/31/2025 10:50:20 Body mass index 20-24 - normal 452713402 Z68.21 34846083 BMI 21.3 Diet education 38748911 Z71.3 Exercises education, guidance, and counseling 105784788 Z71.82 Atrial fibrillation 4943 6004 I48.91 [id number] EKG reviewedMarito thompson called at 9:40 AMIV started at 9:45 AMAmbulanc e left at 10:05 AM Dependence on supplemental oxygen 0457902681 07 Z99.81 Chronic ob structive pulmonary disease 88938269 J44.9 Health Concerns Section Related Observation LastModified by Organization Detai ls LastModified Time None Recorded Concern Status LastModified by Organization Details LastModified Time None Recorded Payers Encounter Date Sequence Insurance Name Policy Number Policy Mcgowan Covered Member ID Mcgowan Member ID Guarantor Name 03/31/2025 1 [place] (MEDICARE REPLACEMENT HMO) [id number] Darren Foley [id number] Darren Foley Notes Date Note Type Note Provider Name and Address Organization Details Recorded Time 03/31/2025 text/html Patient presents with complaints of his A-Fib acting up. He is currently on 3L of oxygen. He has been more short of breath than usual. He also has noticed some swelling in his feet. He is feeling dizzy. He is not seeing a gray mixing operator. He was advised to go to the ER yesterday but he had refused. He has agreed to go the ER today. Cindy Joseph NP [address], [address], [facility] 03/31/2025 11:42:17
--- OUTSIDE RECORDS SUMMARY | 2025-03-31 11:27 | XMS_ITS | Clinical Summary ---
Author Organization [facility] Address [address] [place] [id number] Care Team Providers Care Clay Pigeon Setter Name Role Phone Donal Blackburn MD Primary Care Provider [phone] Allergies Active Allergy Reactions Criticality Noted Date Comments Amlodipine Other (See Comments) Low 07/06/2020 Joint swelling Lisinopril Swelling Low 07/21/2020 Medications nebulizerIndicat ions:Chronic obstructive pulmonary disease with acute exacerbation (CMS/HCC) Length of need 99 months Nebulizer with compressor, Kit: Disposable Nebulizer Kit, 2 per month, filters , areosol mask: No. Name of Medication albuterol To be faxed to [facility] 1 Each 2 Active traZODone (DESYREL) 100 mg tabletIndication s:Insomnia, unspecified type Take 2.5 Tablets (250 mg) by mouth daily at bedtime. 225 Tablet 1 2 Active tiotropium-oloda teroL (STIOLTO RESPIMAT) 2.5-2.5 mcg/actuation metered inhalerIndicatio ns:Chronic obstructive pulmonary disease, unspecified COPD type (CMS/HCC),Chroni c obstructive pulmonary disease with acute exacerbation (CMS/HCC) Take 2 Puffs by inhalation daily. 12 Gram 1 2 Active ipratropium-albu teroL (DUONEB) 0.5 mg-3 mg(2.5 mg base)/3 mL Solution for NebulizationIndi cations:Chronic obstructive pulmonary disease, unspecified COPD type (CMS/HCC),Chroni c obstructive pulmonary disease with acute exacerbation (CMS/HCC) Take 3 mL by inhalation every 6 hours as needed for Shortness of Breath. 180 mL 1 2 Active ipratropium-albu teroL (COMBIVENT RESPIMAT) 20-100 mcg/actuation MistIndications: Chronic obstructive pulmonary disease, unspecified COPD type (CMS/HCC),Chroni c obstructive pulmonary disease with acute exacerbation (CMS/HCC) Take 1 Puff by inhalation every 6 hours. 4 Gram 3 2 Active nitroglycerin (NITROSTAT) 0.4 mg Tablet, SublingualIndica tions:Chest pain, unspecified type Place 1 Tablet (0.4 mg) under tongue every 5 minutes as needed for Chest Pain. 30 Tablet 2 Active albuterol sulfate 90 mcg/Actuation inhalerIndicatio ns:Chronic obstructive pulmonary disease, unspecified COPD type (CMS/HCC),Chroni c obstructive pulmonary disease with acute exacerbation (CMS/HCC) USE 2 INHALATIONS BY MOUTH EVERY 4 HOURS NEEDED FOR SHORTNESS OF BREATH 8.5 Gram 2 3 Active Active Problems Problem Noted Date Diagnosed Date Cigarette dependence 01/18/2022 Insomnia 10/12/2020 Benign hypertension 06/28/2020 Chronic obstructive pulmonar y disease with acute exacerbation 06/28/2020 Encounters Date Type Department Care Team Description 02/17/2025 External Device Data STL ABSTRACTION Provider, Abstract from Last 3 Months Social History Tobacco Use Types Packs/Day Years Used Date Smoking Tobacco: Every Day Cigarettes Smokeless Tobacco: Never Tobacco Cessation:Ready to Q uit: No; Counseling Given: Yes Alcohol Use Standard Drinks/Week Comments Not Currently 0 (1 standard drink = 0.6 oz pur e alcohol) Sex and Gender Information Value Date Recorded Sex Assigned at Not on file Legal Sex Male 8:54 PM TUBE BENDER Gender Identity Not on file Sexual Orientation Not on file Last Filed Vital Signs Vital Sign Reading Time Taken Comments Blood Pressure 110/64 01/18/2022 10:57 AM CDT Pulse 83 01/18/2022 10:57 AM CDT Temperature 37 C (98.6 F) 01/18/2022 10:57 AM CDT Respiratory Rate 18 01/18/2022 10:57 AM CDT Oxygen Saturation 98% 01/18/2022 10:57 AM CDT Inhaled Oxygen Concentration - - Weight 70.3 kg (155 lb) 01/18/2022 10:57 AM CDT Height 171.5 cm (5' 7.5 ) 01/18/2022 10:57 AM CD T Body Mass Index 23.92 01/18/2022 10:57 AM CDT Plan of Treatment Health Maintenance Due Date Last Done Comments FIT/ DNA Q 3 YEARS (AUTO ORDER) 1979 FIT/FOBT Q 1 YEAR (AUTO ORDER) 1979 FLEX SIG/CT COLONOGRAPHY Q 5 YEARS (AUTO ORDER) 1979 DTAP/TDAP/TD VACCINES (1 - Tdap) 02/14/1980 COLORECTAL CANCER SCREENING (AUTO ORDER) 2006 COLORECTAL SCREENING 2006 Colorectal Cancer Screening (AUTO ORDER) 2006 Colorectal Cancer Screening 2006 FIT-DNA Q 3 years 2006 FIT/FOBT Q 1 year 2006 Flex Sig/CT Colonography Q 5 years 2006 RSV VACCINE (60+ or ) (1 - Risk 50-74 years 1-dose series) 2011 ZOSTER VACCINE (1 of 2) 2011 Medicare Advantage ([place]) Prev entative Visit/Annual Wellness Visit 05/26/2024 INFLUENZA VACCINE (#1) 2024 05/02/2021, [address] [place] [address] [place] [address] ADVANTAGE O DSNP Care Teams Clay Pigeon Setter Relationship Specialty Start Date End Date Donal Blackburn MD [address] [id number] PCP - General Family Practice 06/28/20
--- NOTE | 2025-03-31 11:28 | ECG_ITS ---
[facility] Test Date: 2025-03-31 Pat Name: Darren Foley Department: Room: Gender: Male Peoplesoft Hcm Developer: : 1960 Requested By: Kirill Rosales Order Number: [id number] Maldonado MD: Kelly Aquino M.D. Measurements Intervals [place] Rate: 117 P: 0 VA: 0 QRS: 42 QRSD: 93 T: 72 QT: 315 QTc: 440 Interpretive Statements ATRIAL FIBRILLATION WITH RAPID VENTRICULAR RESPONSE ABNORMAL RHYTHM ECG No previous ECG available for comparison Electronically Signed On 04-02-2025 13:01:50 HAT LACER by Kelly Aquino M.D. [id number]
[2025-03-31] MEDS: metoprolol succinate ER (24 HR) 25 mg Tablet PO (11:45)
[2025-03-31] MEDS: metoprolol tartrate 1 mg/1 mL SDV 5 mL 2.5 MG IVP (11:45)
[2025-03-31 11:54] LABS: Hematocrit 36.1 % (37-53); Hemoglobin 11.80 g/dL (11.27-16.99); Mean Corpuscular HGB Conc 32.7 g/dL (30-55); Mean Corpuscular Hemoglobin 31.2 pg (27-33); Mean Corpuscular Volume 95.5 fl (82-101); Nucleated Red Blood Cells % 0 %; Platelet Count 176 10^3/cmm (157-399); Red Blood Count 3.78 10^6/uL (3.85-5.65); White Blood Count 7.82 10^3/uL (3.29-11.43)
--- NOTE | 2025-03-31 11:54 | ED_ITS ---
HPI - Arrhythmia/Palpitations 2 General: Chief Complaint: Arrhythmia/Palpitations Stated Complaint: lower leg swelling - high hr Time Seen by Provider: 03/31/25 11:20 History of Present Illness: 65-year-old male past medical history si gnificant for COPD on chronic continuous 2 L nasal cannula, atrial fibrillation on aspirin and Plavix not on formal anticoagulation or rate control based on medication list, chronic pain, CAD with cardiac stents, presenting the emergency department with approximately 1 week history of intermittent palpitations and shortness of breath worse than his baseline, seen in clinic today and found to be in rapid A-fib and sent to the ER for evaluation. Patient denies chest pain, denies fever, denies abdominal related symptoms but does endorse some mild leg swelling to the ankles also over the same week duration, compliant with all medications but does not recall most of his medication regimen off the top of his head, reports that he takes what ever is prescribed to him. Related Data Home Medications ?Medication ?Instructions ?Recorded ?Confirmed albuterol sulfate 90 mcg/actuation 2 inh inhalation Q4 H PRN Shortness 04/03/22 03/31/25 breath activated powder inhaler Of Breath trazodone 100 mg tablet 250 mg PO DAILY 04/03/2211/17 brexpiprazole 1 mg tablet (Rexulti) 1 mg PO DAILY 05/2703/31/25 fluoxetine 20 mg capsule 20 mg PO DAILY 06/23/2311/17 budesonide 160 mcg-glycopyr 9 2 inh inhalation BID 03/31/25 mcg-formot 4.8 mcg/actuation HFA inhaler (Breztri Aerosphere) budesonide-formoterol HFA 160 1 puff inhalation BID 03/31/25 mcg-4.5 mcg/actuation aerosol inhaler clopidogrel 75 mg tablet 75 mg PO DAILY 03/31/2511/17 fluoxetine 40 mg capsule 40 mg PO DAILY 03/31/2511/17 fluticasone propionate 50 1 spray intranasal CONT 11/1703/31/25 mcg/actuation nasal spray,suspension omeprazole 20 mg capsule,delayed 20 mg PO QAM 03/31/25 03/31/25 release roflumilast 500 mcg tablet 500 mcg PO DAILY 03/31/25 1 05/31/24 Previous Rx's ?Medication ?Instructions ?Recorded aspirin 81 mg tablet,delayed 81 mg PO DAILY #30 tabs 0 09/23/23 release (Adult Low Dose Aspirin) furosemide 20 mg tablet 20 mg PO DAILY #90 tabs 07/08/16 potassium chloride 10 mEq 10 meq PO DAILY #90 caps 08/16 capsule,extended release Allergies Allergy/AdvReac Type Severity Reaction Status Date / Time No Known Drug Allergies Allergy Unknown Verified 01/21/24 08:27 [facility] ED 2 PFSH: Medical History HTN (hypertension) Anxiety Atrial fibrillation Chest pain COPD (chronic obstructive pulmonary disease) Cigarette nicotine dependence Atherosclerosis Pre-syncope Dizziness Insomnia Shortness of breath Depression Fatigue Social History Smoking and tobacco/nicotine status: current every day tobacco/nicotine user Physical Exam 2 Narrative: EXAM NARRATIVE: Gen: A&Ox4, no acute distress, nontoxic appearing HEENT: Normocephalic, atraumatic, no scleral icterus, external ears normal, moist mucous membranes Neck: Supple, full range of motion, no observable masses Lungs: No Respiratory distress, Lungs clear to auscultation bilaterally no rales, rhonchi, wheezing CV: Tachycardic 1 10-1 30s irregular narrow complex on cardiac cath lab radiology technologist, no murmur, trace to 1+ pitting edema bilaterally symmetric to the ankles Abdomen: Soft, nondistended, nontender to palpation MSK: No joint swelling, FROM all 4 extremities Skin: No rashes, petechiae, lesions. Normal color per patient. Neuro: Alert and oriented, no slurred speech, sensation and strength grossly intact all 4 extremities Psych: Appropriate for situation. Course 2 Reevaluation(s): Reevaluation #1: Patient reassessed at this time, clinically still appears nontoxic but is still persistently tachycardic rapid A-fib rate of 105-125, will give additional IV rate control, admit for management of rapid A-fib, patient with elevated proBNP but no clinically significant central pulmonary edema will give a dose of IV Lasix for volume offloading. Time: 13:22 Consultations: Consultation #1: Discussed patient with Dr. Azul of [facility], he accepts patient for admission to [facility] but requests that instead of the additional dose of IV Lopressor transition to Cardizem drip. Patient does have some evidence of mild volume overload but does not clinically appear in overt congestive heart failure and has adequate maps so this is medically reasonable in my judgment we will start this while awaiting bed. Time: 13:27 Vital Signs: Vital signs: Vital Signs Temperature 98.2 F 03/31/25 11:20 Pulse Rate 128 H 03/31/25 13:39 Respiratory Rate 22 H 03/31/25 11:20 Blood Pressure 112/79 03/31/25 12:08 Pulse Oximetry 99 03/31/25 11:20 Oxygen Delivery Me thod Nasal Cannula 03/31/25 11:20 Oxygen Flow Rate 2 03/31/25 11:20 MDM - Arrhythmia/Palpitations Medical Decision Making 65-year-old male history of hypertension A-fib and COPD presenting to the emergency department with palpitations x 5 days found to be in rapid A-fib, does not appear to be on any rate control medication by history and does not appear to be on true anticoagulation but does take dual antiplatelet therapy, overall well-appearing, mildly overloaded, plan for rate control, mild diuresis, labs and troponin, reassess for disposition Lab Data Labs significant for no anemia or leukocytosis, normal kidney function, mildly elevated troponin on initial test 60 repeat pending, elevated proBNP 1000 03/31/25 11:45 03/31/25 11:45 Radiology Impressions Chest X-Ray 03/31/25 11:27 IMPRESSION: No acute findings. Laboratory Results WBC 7.82 10^3/uL (3.29-11.43) 03/31/25 11:45 RBC 3.78 10^6/uL (3.85-5.65) L 03/31/25 11:45 Hgb 11.80 g/dL (11.27-16.99) 03/31/25 11:45 Hct 36.1 % (37-53) L 03/31/25 11:45 MCV 95.5 fl (82-101) 03/31/25 11:45 MCH 31.2 pg (27-33) 03/31/25 11:45 MCHC 32.7 g/dL (30-55) 03/31/25 11:45 RDW 12.0 % (12.1-15.1) L 03/31/25 11:45 Plt Count 176 10^3/cmm (157-399) 03/31/25 11:45 MPV 9.4 fL (7.4-10.4) 03/31/25 11:45 Neut % (Auto) 72.8 % 03/31/25 11:45 Lymph % (Auto) 17.0 % 03/31/25 11:45 [place] % (Auto) 7.9 % 03/31/25 11:45 Eos % (Auto) 1.5 % 03/31/25 11:45 Baso % (Auto) 0.3 % 03/31/25 11:45 Neut # (Auto) 5.69 10^3/uL (1.8-7.7) 03/31/25 11:45 Lymph # (Auto) 1.3 10^3/uL (0.8-4.8) 03/31/25 11:45 [place] # (Auto) 0.6 10^3/uL (0.2-0.9) 03/31/25 11:45 Eos # (Auto) 0.1 10^3/uL (0.0-0.8) 03/31/25 11:45 Baso # (Auto) 0.0 10^3/uL (0.0-0.1) 03/31/25 11:45 Nucleated RBC % (auto) 0 % 03/31/25 11:45 Nucleated RBCs # 0.0 /100WBC 03/31/25 11:45 PT 12.50 SECONDS (12.1-14.9) 03/31/25 11:45 INR 0.88 (0.8-1.2) 03/31/25 11:45 APTT 26.6 SECONDS (23.9-36.7) 03/31/25 11:45 Sodium 140 mmol/L (136-145) 03/31/25 11:45 Potassium 4.1 mmol/L (3.5-5.1) 03/31/25 11:45 Chloride 99 mmol/L (98-107) 03/31/25 11:45 Carbon Dioxide 31 mmol/L (22-29) H 03/31/25 11:45 Anion Gap 14.1 (5-19) 03/31/25 11:45 BUN 16 mg/dL (8-23) 03/31/25 11:45 Creatinine 0.7 mg/dL (0.7-1.2) 03/31/25 11:45 GFR Calculation 113.5 mL/min (90-130) 03/31/25 11:45 Glucose 79 mg/dL (65-115) 03/31/25 11:45 Calculated Osmolality 290 mOsm/kg (285-295) 03/31/25 11:45 Calcium 8.7 mg/dL (8.5-10.5) 03/31/25 11:45 Magnesium 2.1 mg/dL (1.7-2.3) 03/31/25 11:45 Troponin T Baseline 60 ng/L (0-15) H 03/31/25 11:45 Troponin T 120 Minute 59.70 ng/L (0-15) H 03/31/25 13:34 Delta Troponin T -0.30 ABS# (0-10) L 03/31/25 13:34 NT-Pro-B Natriuret Pep 1055 pg/mL (0-125) H 03/31/25 11:45 All radiology interpretation(s) finalized by discharge ED provider radiology interpretation(s): Chest x-ray without significant pulmonary edema EKG Data EKG 1: I personally reviewed and interpreted this EKG as follows: EKG interpretation date: 03/31/25 EKG interpretation time: 11:24 Interpretation: EKG performed at 11:24 AM, showing atrial fibrillation at 117 bpm with rapid ventricular response, no STEMI, QTc 384 ms, normal axis Other EKG comments: Chest X-Ray 03/31/25 11:27 IMPRESSION: No acute findings. EKG 2: I personally reviewed and interpreted this EKG as follows: EKG interpretation date: 03/31/25 EKG interpretation time: 13:28 Prior EKG tracings: available for review Interpretation: Repeat EKG with atrial fibrillation rapid ventricular response at 113 bpm, no STEMI, QTc 393 ms, no significant dynamic interval change Other EKG comments: Chest X-Ray 03/31/25 11:27 IMPRESSION: No acute findings. Discharge Plan Discharge Patient Disposition: Admitted As Inpatient Admit Provider: Randy Villalobos Clinical Impression: Atrial fibrillation with rapid ventricular response, Edema, peripheral Condition: Stable Coding Level of Care Code ED Senior Technical Support Analyst for Chg Jyothi
[2025-03-31 12:20] LABS: Troponin(5th) Baseline 60 ng/L (0-15)
[2025-03-31 12:21] LABS: INR 0.88 (0.8-1.2); Prothrombin Time 12.50 SECONDS (12.1-14.9)
[2025-03-31 12:23] LABS: Partial Thromboplastin Time 26.6 SECONDS (23.9-36.7)
[2025-03-31 12:35] LABS: Anion Gap 14.1 (5-19); Blood Urea Nitrogen 16 mg/dL (8-23); Calcium 8.7 mg/dL (8.5-10.5); Carbon Dioxide 31 mmol/L (22-29); Chloride 99 mmol/L (98-107); Glucose 79 mg/dL (65-115); Magnesium 2.1 mg/dL (1.7-2.3); NT Pro B Type Natriuretic Pept 1055 pg/mL (0-125); Osmolality Calculated 290 mOsm/kg (285-295); Potassium 4.1 mmol/L (3.5-5.1); Sodium 140 mmol/L (136-145)
[2025-03-31] MEDS: FUROsemide 10 mg/mL SDV 4mL 40 MG IVP (13:02)
--- NOTE | 2025-03-31 13:28 | ECG_ITS ---
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
[2025-03-31] MEDS: DILTIAZEM HCL/D5W 125 MG/125 ML BAG IV (13:38)
[2025-03-31 14:03] LABS: Troponin 5 2HR 59.70 ng/L (0-15)
[2025-03-31 14:04] LABS: Troponin 5 2HR Delta -0.30 ABS# (0-10)
--- NOTE | 2025-03-31 14:32 | PM.HP ---
Providers/Chief Complaint Admitting Physician: Randy Villalobos MD Primary Care Provider: Cindy Joseph NP Chief Complaint: lower leg swelling - high hr History of Present Illness Darren Foley is a 65 year old male chronic smoker with past medical history of peripheral arterial disease, CAD, atrial fibrillation not on anticoagulation, COPD presents to the ER today from clinic. Patient states he has been having palpitations, difficulty in breathing for last 5 days associated with chest heaviness which is central for last 3 days. Because of palpitations he went to the clinic where he was found to have rapid heart rate hence he was sent to the ER. In the ER he was found to be having atrial fibrillation with rapid ventricular response for which he was given few pushes of IV metoprolol. As his heart rate continued to be elevated he was switched over to Cardizem drip. On examination he was on 7.5 of IV Cardizem with heart rate running in 115's. Complaining of difficulty in breathing. Review of Systems General: Reports: 10 or more systems reviewed and unremarkable except in HPI and below Const: Denies: fever(s), chills, body aches, change in appetite, change in weight, malaise, night sweats, diaphoresis, change in sleep pattern, daytime sleepiness or snoring Eyes: Denies: change in vision, blurry vision, photophobia, eye discomfort or eye discharge ENMT: Denies: throat pain, enlarged tonsils, hoarseness, mouth pain, oral sores, dry mouth, tinnitus, nasal congestion or post nasal drip Card: Denies: chest pain, palpitations, irregular heart rhythm, edema, swelling of feet/ankles, lightheadedness, syncope, pre-syncope, dyspnea on exertion, orthopnea, leg pain with exertion or acrocyanosis Resp: Denies: dyspnea, productive cough, non-productive cough, wheezing, stridor, pain on inspiration, change in phlegm color, hemoptysis or chest congestion GI: Denies: abdominal pain, nausea, vomiting, hematemesis, coffee ground emesis, dysphagia, heartburn, diarrhea, constipation, bloating, GI cramping, change in bowel habits, pain on defecation, hematochezia or melena : Denies: flank pain, difficulty urinating, dysuria, urinary frequency, urinary urgency, urinary hesitancy, urinary dribbling, difficulty starting urination, change in urine stream, nocturia or hematuria Musc: Denies: neck pain, back pain, extremity pain, joint pain, joint swelling, joint redness, joint stiffness or limited range of motion Neuro: Denies: headache(s), numbness in extremities, weakness in extremities, sensory changes, lack of coordination, difficulty walking, frequent falls, dizziness, vertigo, confusion, Slurred speech present, difficulty communicating thoughts or seizure-like activity Psych: Denies: anxiety, depression, mood swings, panic attacks, hopelessness or irritability Endo: Denies: polyuria, polydipsia, tired all the time, cold intolerance, excessive sweating, flushing or heat intolerance Micah/Lymph: Denies: easy bruising or easy bleeding All/Imm: Denies: tongue swelling, facial swelling or acute wheezing Medications/Allergies Home Medications ?Medication ?Instructions ?Recorded ?Confirmed ?Last Taken ?Type albuterol sulfate 90 mcg/actuation 2 inh inhalation Q4H PRN Shortness 04/03/22 03/31/25 Unknown History breath activated powder inhaler Of Breath trazodone 100 mg tablet 250 mg PO DAILY 04/03/22 03/31/25 03/30/25 History brexpiprazole 1 mg tablet (Rexulti) 1 mg PO DAILY 06/23/23 03/31/25 03/30/25 History fluoxetine 20 mg capsule 20 mg PO DAILY 06/23/23 03/31/25 03/30/25 History aspirin 81 mg tablet,delayed 81 mg PO DAILY #30 tabs 09/23/23 03/31/25 01/22/24 05:30 Rx release (Adult Low Dose Aspirin) furosemide 20 mg tablet 20 mg PO DAILY #90 tabs 11/26/23 03/31/25 03/30/25 Rx potassium chloride 10 mEq 10 meq PO DAILY #90 caps 11/26/23 03/31/25 03/30/25 Rx capsule,extended release budesonide 160 mcg-glycopyr 9 2 inh inhalation BID 01/22/24 03/31/25 03/30/25 History mcg-formot 4.8 mcg/actuation HFA inhaler (Breztri Aerosphere) budesonide-formoterol HFA 160 1 puff inhalation BID 03/31/25 03/31/25 Unknown History mcg-4.5 mcg/actuation aerosol inhaler clopidogrel 75 mg tablet 75 mg PO DAILY 03/31/25 03/31/25 03/30/25 History fluoxetine 40 mg capsule 40 mg PO DAILY 03/31/25 03/31/25 03/30/25 History fluticasone propionate 50 1 spray intranasal CONT 03/31/25 03/31/25 03/30/25 History mcg/actuation nasal spray,suspension omeprazole 20 mg capsule,delayed 20 mg PO QAM 03/31/25 03/31/25 03/30/25 History release roflumilast 500 mcg tablet 500 mcg PO DAILY 03/31/25 03/31/25 03/31/25 History Allergies Allergy/AdvReac Type Severity Reaction Status Date / Time No Known Drug Allergies Allergy Unknown Verified 01/21/24 08:27 PFSH Acute PFSH: Medical History (Updated 03/31/25 @ 13:29 by Kirill Rosales MD) HTN (hypertension) Anxiety Atrial fibrillation Chest pain COPD (chronic obstructive pulmonary disease) Cigarette nicotine dependence Atherosclerosis Pre-syncope Dizziness Insomnia Shortness of breath Depression Fatigue Social History Smoking and tobacco/nicotine status: current every day tobacco/nicotine user Vitals/I&O/Wt Last Vital Signs Temp 98.2 F 03/31/25 11:20 Pulse 128 H 03/31/25 13:39 Resp 22 H 03/31/25 11:20 BP 112/79 03/31/25 12:08 Pulse Ox 99 03/31/25 11:20 O2 Del Method Nasal Cannula 03/31/25 11:20 O2 Flow Rate 2 03/31/25 11:20 Weight last 48 hrs Weight 62.596 kg Physical Exam Narrative: General: No acute distress, AO x3 HEENT: PERRLA, pupils bilaterally equal and reactive Chest: Bilateral bronchial breath sounds all over lung zamorano occasional rhonchi CVS: S1-S2 irregularly irregular, no murmurs, tachycardia, no gallops, no rubs Abdomen: Soft, nontender, no organomegaly, bowel sounds present Neuro: No focal deficits, no facial deformity, AO x3, power 5/5 in all limbs Data 03/31/25 11:45 03/31/25 11:45 A&P Assessment and plan 1. Atrial fibrillation with rapid ventricular response: Check thyroid panel. For now switch to amiodarone drip with amiodarone bolus. Discussed in detail with patient regarding merits versus demerits of being on anticoagulation for stroke prevention. Patient is agreeable. Start on Lovenox 1 mg/kg body weight every 12 hourly. Echocardiogram. Target heart rate below 100 on exertion. Start on oral Cardizem 30 mg Q6 hourly. 2. COPD (chronic obstructive pulmonary disease): Pulmicort twice daily, ipratropium, Xopenex every 6 hour. Start on Solu-Medrol 125 mg one-time followed by 40 mg every 6 hour. Oxygen supplementation keeping saturation over 90%. Chronic smoker. Discussed in detail regarding importance of cessation of smoking. Nicotine patch. 3. HTN (hypertension): Goal blood pressure less than 140/90 mmHg. Blood pressure stable for now. Hold off on any other antihypertensive. 4. Shortness of breath: Most likely in setting of COPD exacerbation and CHF 5. Peripheral arterial occlusive disease: Patient takes aspirin and Plavix currently. Though as per charting he should be on aspirin, cilostazol. For now we will continue with aspirin and Plavix. Check A1c, lipid panel. 6. Atherosclerotic heart disease of [place] coronary artery with other forms of angina pectoris: Plan: Shortness of breath: Most likely in setting of COPD exacerbation. Cannot rule out congestive heart failure. Fluid restriction to less than 1500 cc. Lasix as per fluid status daily. Strict input output charting, daily weights. Nebulization and steroid as above. Check D-dimer. Depending on D-dimer will plan for CTA. Chest pressure: Most likely in setting of atrial fibrillation with RVR along with COPD exacerbation. Given history of PAD will be important to rule out ACS. Appreciate troponin cycled. Patient would benefit with cardiac stress test once more stable. Full code Cardiac diet Famotidine for PUD prophylaxis Full dose Lovenox for suppression for DVT prophylaxis PDMP PDMP Reviewed: Not Reviewed Attestations Medical Necessity Statement*: Admission for more than 2 midnights for management of atrial fibrillation rapid ventricular response, COPD exacerbation, CHF Diagnoses Atrial fibrillation with rapid ventricular response I48.91 COPD (chronic obstructive pulmonary disease) J44.9 HTN (hypertension) I10 Shortness of breath R06.02 Peripheral arterial occlusive disease I77.9 Atherosclerotic heart disease of [place] coronary artery with other forms of angina pectoris I25.118
[2025-03-31 15:24] LABS: Procalcitonin 0.07 ng/mL (0-0.5)
--- NOTE | 2025-03-31 16:17 | USCV_ITS ---
Darren Foley Age: 65 Gender: M : 1960 Exam Date: 03/31/2025 21:27 Ordering Phys: Randy Villalobos MD Technologist: BELEN [place] [facility] [place] Afib with RVR, HTN, anxiety, chest pain, COPD, long-term smoker continues smoking. BP: 110 / 71 HR: 93 Rhythm: Atrial fibrillation Technical Quality: Adequate MEASUREMENTS (Male / Female) Normal Values 2D ECHO LV Diastolic Diameter PLAX 5.4 cm 4.2 - 5.9 / 3.9 - 5.3 cm IVS Diastolic Thickness 1.1 cm 0.6 - 1.0 / 0.6 - 0.9 cm IVS Systolic Thickness 1.3 cm LVPW Diastolic Thickness 1.0 cm 0.6 - 1.0 / 0.6 - 0.9 cm LVPW Systolic Thickness 1.9 cm LVOT Diameter 2.1 cm LV Ejection Fraction 2D Teich 43.5 % LV Ejection Fraction MOD 4C 58.5 % LV Ejection Fraction MOD 2C 42.2 % LV Ejection Fraction 2C AL 42.0 % LA Diameter 3.8 cm Aorta at Sinotubular Diameter 3.1 cm IVC Diameter 3.0 cm M-MODE LA Ao Ratio MM 0.9 AV Cusp Separation MM 1.8 cm DOPPLER AV Peak Velocity 102.0 cm/s LVOT Peak Velocity 51.0 cm/s AV Area Cont Eq vti 1.8 cm squared AV Area Cont Eq pk 1.8 cm squared MV Peak Velocity 103.0 cm/s MV Area PHT 3.4 cm squared Mitral E to A Ratio 609.0 FINDINGS Left Ventricle Mild diffuse hypokinesis of the septum and the anteroseptum. LV ejection fraction around 44%.Grade I/IV diastolic dysfunction (abnormal relaxation filling pattern), normal to mildly elevated filling pressures. Right Ventricle Normal right ventricular size and systolic function. Right Atrium Mildly increased right atrial size. Left Atrium Mildly increased left atrial size. IA Septum Normal interatrial septum. Mitral Valve Moderate mitral valve regurgitation. Aortic Valve Thickened aortic valve. Trace aortic valve regurgitation. Tricuspid Valve Trace tricuspid valve regurgitation. Pulmonic Valve Pericardium No pericardial effusion. Aorta Normal aortic annulus size. IVC Normal IVC dimension with <50% respiratory change of the inferior vena cava. CONCLUSIONS Mild diffuse hypokinesis of the septum and the anteroseptum. LV ejection fraction around 44%.Grade I/IV diastolic dysfunction (abnormal relaxation filling pattern), normal to mildly elevated filling pressures. Mild biatrial enlargement Moderate mitral valve regurgitation. Thickened aortic valve. Trace aortic valve regurgitation. Trace tricuspid valve regurgitation. The PA pressure could not be calculated because of the poor Doppler signals. There is no pericardial effusion. There are no intracardiac masses. Compared to the study from 07/22/2023, there is a drop in the LV ejection fraction from 57% to 44% Dr Kelly Aquino MD [facility] (Electronically Signed) Final Date: 31 March 2025 23:02 S
[2025-03-31 16:31] LABS: Lactic Sepsis W/Reflex 0.9 mmol/L (0.5-2.2)
[2025-03-31] MEDS: amiodarone 150 MG/100 ML PREMIX 400 MG IV (17:03)
[2025-03-31] MEDS: AMIODARONE HCL/D5W 900 MG/500 ML BAG 33.33 MG IV (17:08)
[2025-03-31] MEDS: fluticasone nasal spray 16gm Btl 1 SPRAY INTRANASAL (17:18)
--- NOTE | 2025-03-31 17:28 | ECG_ITS ---
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
[2025-03-31 17:31] LABS: Iron 87 ug/dL (59-158); Thyroid Stimulating Hormone 1.24 uIU/mL (0.27-4.20); Total Iron Binding Capacity 307 mcg/dl; Unsaturated Iron Binding 220 ug/dL (112-347); Vitamin B12 378 pg/mL (232-1245)
[2025-03-31] MEDS: methylPREDNISolone sod succ 125 mg/2 mL INJ IVP (18:00)
[2025-03-31 18:16] LABS: Estmated Average Glucose 103; Hemoglobin A1C 5.2 % (4.0-6.0)
[2025-03-31 19:03] LABS: Troponin 5 6HR 68.13 ng/L (0-15); Troponin 5 6HR Delta 8.13 ng/L (0-12)
[2025-04-01] VITALS (70 sets, daily range): BP systolic 90–167; BP diastolic 57–95; PULSE 89–118; RESP 15–43; TEMP 36.5–36.9; O2SAT 95–100
--- NOTE | 2025-04-01 00:11 | ECG_ITS ---
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 Interpretive Statements Lung unchanged pre/post procedure; Intraprocedure shortess of breath; Symptoms resoled by discharge PROCEDURE: At the baseline, the EKG revealed atrial fibrillation with a controlled ventricular response rate. Poor R wave progression.. The baseline heart was 94 bpm with a blood pressue of 101/65 mm of Hg Lexiscan was infused over a period of 20 seconds. A total of 0.4 milligrams of Lexiscan was infused. The stress phase was continued for a total of 5 minutes. Heart rate at the end of the stress phase was 99 bpm with a blood pressure 98/55 mm of Hg. The EKG at the peak infusion revealed no significant changes. Sestamibi was injected 20 seconds after the Lexiscan infusion. Heart rate at the end of the recovery phase was 102 bpm with a blood pressure of 100/57 mm of Hg. CONCLUSION: 1. No significant EKG changes with the LexiScan infusion 2. No LexiScan induced chest pain or cardiac arrhythmia 3. Normal blood pressure and heart rate response 4. Sestamibi/sestamibi perfusion scan pending; see separate report. Electronically Signed On 04-01-2025 19:44:05 BSS SOLUTION ARCHITECT by Kelly Aquino M.D. [email or web address]
--- NOTE | 2025-04-01 00:12 | NMCV_ITS ---
NM ham perf SPECT r/s* [id number] Darren Foley Age: 65 Gender: M : 1960 Exam Date: 04/01/2025 08:26 Ordering Phys: Randy Villalobos MD Technologist: NERIS Hill Exam Location: [facility] Indications: cp STRESS TEST Please see separate stress test report in [facility] for full findings IMAGE PROTOCOL Rest/Stress 1 Lexiscan Day Radiopharmaceutical Dose (mCi) Administration Site Administered by Rest: Tc-99m 11 IV Iesha Yi, GOLD CHARMER Sestamibi Stress:Tc-99m 32.7 IV Iesha Drapergle, GOLD CHARMER Sestamibi Rest: 01-Apr-2025 60 Discovery 630 Stress: 01-Apr-2025 30 Discovery 630 0.4mg Lexiscan. Supine position only as patient was unable to lay prone. SPECT RESULTS Technical Quality: Good Raw Data Analysis: Normal Image Corrections: No attenuation or motion correction applied Summed Stress Score: 0 Summed Rest Score: 1 Summed Difference Score: 0 PERFUSION FINDINGS Fairly uniform myocardial tracer uptake with no significant perfusion abnormalities FUNCTIONAL RESULTS (calculated via Gated SPECT) Stress Image LV EF (%): 47 Stress EDV (mL):118 TID: 0.86 Stress ESV (mL):62 FUNCTIONAL FINDINGS: Segmental wall motion analysis revealed mild diffuse hypokinesia of the left ventricle IMPRESSIONS 1. Myocardial perfusion imaging revealing fairly uniform myocardial tracer uptake with no significant perfusion abnormalities 2. Slightly diminished LV ejection fraction of 47%. 3. Segmental wall motion analysis revealed mild diffuse hypokinesia of the left-ventricule. 4. Mildly dilated LV cavity with an end-systolic volume of 62 mL The above features may suggest some form of nonischemic cardiomyopathy Low probability for coronary ischemia, based on the above findings Dr Kelly Aquino MD [facility] (Electronically Signed) Final Date: 01 April 2025 12:42 S
[2025-04-01] MEDS: methylPREDNISolone sod succ 40 mg/mL INJ IVP ×3 (02:39→18:10)
[2025-04-01 05:07] LABS: Hematocrit 33.8 % (37-53); Hemoglobin 11.10 g/dL (11.27-16.99); Mean Corpuscular HGB Conc 32.8 g/dL (30-55); Mean Corpuscular Hemoglobin 30.9 pg (27-33); Mean Corpuscular Volume 94.2 fl (82-101); Nucleated Red Blood Cells % 0 %; Platelet Count 170 10^3/cmm (157-399); Red Blood Count 3.59 10^6/uL (3.85-5.65); White Blood Count 4.40 10^3/uL (3.29-11.43)
[2025-04-01] MEDS: FUROsemide 10 mg/mL SDV 4mL 40 MG IVP (05:28)
[2025-04-01 05:29] LABS: Alanine Aminotransferase 42 U/L (0-41); Albumin Level 3.7 g/dL (3.5-5.2); Alkaline Phosphatase 91 U/L (40-130); Anion Gap 14.6 (5-19); Aspartate Amino Transferase 29 U/L (0-40); Blood Urea Nitrogen 21 mg/dL (8-23); Calcium 8.7 mg/dL (8.5-10.5); Carbon Dioxide 30 mmol/L (22-29); Chloride 96 mmol/L (98-107); Cholesterol 141 mg/dL (0-200); Globulin 2.4 g/dL (1.3-4.6); Glucose 184 mg/dL (65-115); HDL Cholesterol 64 mg/dL (60-100); Magnesium 2.1 mg/dL (1.7-2.3); Osmolality Calculated 290 mOsm/kg (285-295); Potassium 4.6 mmol/L (3.5-5.1); Sodium 136 mmol/L (136-145); Total Protein 6.1 g/dL (6.6-8.7); Triglycerides 48 mg/dL (0-150)
[2025-04-01 05:35] LABS: Procalcitonin 0.06 ng/mL (0-0.5)
--- NOTE | 2025-04-01 10:57 | PC.SOCIAL ---
IMM Updated Updated pt on IMM. No questions voiced. Provided pt a copy. Initialed, dated, & timed a copy & placed in chart.
--- NOTE | 2025-04-01 13:45 | P.PN_ITS ---
Subjective 2 Subjective: Overnight patient was transferred back to ICU with concerns for COPD exacerbation. He has been on BiPAP. Currently he is on his baseline oxygen supplementation with caregiver at bedside. Patient states his breathing is almost back to his baseline. Denies any nausea, vomiting, headache. Requesting if he can restart his home inhalers. Vitals/I&O/Wt Last Vital Signs Temp 97.8 F 04/01/25 12:00 Pulse 96 04/01/25 13:30 Resp 22 H 04/01/25 13:30 BP 124/60 04/01/25 13:30 Pulse Ox 97 04/01/25 13:30 O2 Del Method Nasal Cannula 04/01/25 13:30 O2 Flow Rate 2 04/01/25 12:48 FiO2 2 04/01/25 13:30 03/31/25 04/01/25 04/01/25 22:59 06:59 14:59 Intake Total 560.333 / 560.333 551.647 / 1111.980 250 / 250 Output Total 400 / 400 1000 / 1400 450 / 450 Balance 160.333 / 160.333 -448.353 / -288.020 -200 / -200 Weight last 48 hrs Weight 61 kg Weight 61 kg Weight 62.097 kg Weight 62.596 kg Physical Exam 2 Narrative: General: No acute distress, AO x3 HEENT: PERRLA, pupils bilaterally equal and reactive Chest: Bilateral bronchial breath sounds all over lung zamorano occasional rhonchi CVS: S1-S2 irregularly irregular, no murmurs, tachycardia, no gallops, no rubs Abdomen: Soft, nontender, no organomegaly, bowel sounds present Neuro: No focal deficits, no facial deformity, AO x3, power 5/5 in all limbs Data 04/02/25 03:21 04/02/25 03:21 A&P Assessment and plan 1. Atrial fibrillation with rapid ventricular response: Appreciate thyroid panel. Heart rate still elevated but most likely in setting of baseline severe COPD. Switch amiodarone drip to 400 mg twice daily. Completed digoxin load last night. Continue with Cardizem 60 mg Q6 hourly. Will consult cardiology further recommendations. May consider adding low-dose beta-cristine. Appreciate echocardiogram showing systolic and diastolic heart failure. Continue with full dose Lovenox 1 mg/kg body weight every 12 hourly. 2. Acute on chronic combined systolic and diastolic congestive heart failure: High likelihood of nonischemic cardiomyopathy. Appreciate cardiac stress test being negative for acute ischemia. Echocardiogram appreciated. Continue with IV Lasix 40 mg daily. Will plan to add ARB depending on blood pressure in next 24 hours. 3. Non-ischemic cardiomyopathy: 4. Chronic obstructive pulmonary disease, unspecified COPD type: Pulmicort twice daily, ipratropium, Xopenex every 6 hour. Start home inhaler. Solu-Medrol 40 mg Q6 hourly. Oxygen supplementation keeping saturation over 90%. Chronic smoker. Discussed in detail regarding importance of cessation of smoking. Nicotine patch. 5. Primary hypertension: Goal blood pressure less than 140/90 mmHg. Blood pressure stable for now. Hold off on any other antihypertensive. 6. Shortness of breath: Most likely in setting of COPD exacerbation and CHF 7. Peripheral arterial occlusive disease: Patient takes aspirin and Plavix currently. Though as per charting he should be on aspirin, cilostazol. For now we will continue with aspirin and Plavix. Appreciate A1c, lipid panel. 8. Atherosclerotic heart disease of [place] coronary artery with other forms of angina pectoris: Plan: Shortness of breath: Most likely in setting of COPD exacerbation and congestive heart failure. Fluid restriction to less than 1500 cc. Lasix as per fluid status daily. Strict input output charting, daily weights. Nebulization and steroid as above. Full code Cardiac diet Famotidine for PUD prophylaxis Full dose Lovenox for suppression for DVT prophylaxis PDMP PDMP Reviewed: Not Reviewed Attestations 2 Medical Necessity Statement*: Requires further hospitalization for management of A-fib with RVR, COPD exacerbation, congestive heart failure Diagnoses Atrial fibrillation with rapid ventricular response I48.91 Acute on chronic combined systolic and diastolic congestive heart failure I50.43 Heart failure chronicity: acute on chronic Heart failure type: combined systolic and diastolic Non-ischemic cardiomyopathy I42.8 Chronic obstructive pulmonary disease, unspecified COPD type J44.9 COPD type: unspecified COPD Primary hypertension I10 Hypertension type: primary hypertension Shortness of breath R06.02 Peripheral arterial occlusive disease I77.9 Atherosclerotic heart disease of [place] coronary artery with other forms of angina pectoris I25.118
[2025-04-01] MEDS: fluticasone nasal spray 16gm Btl 1 SPRAY INTRANASAL (15:24)
[2025-04-01] MEDS: digoxin 250 mcg/ml INJ 2 mL IVP (15:26)
--- NOTE | 2025-04-01 16:11 | PC.NURSE ---
Report give to Kelvin RN. No distress noted. Wheelchair ride to room 107 with monitor.
[2025-04-01] MEDS: AMIODARONE HCL/D5W 900 MG/500 ML BAG 16.67 MG IV (17:30)
[2025-04-01] MEDS: digoxin 250 mcg/ml INJ 2 mL 125 MCG IVP (20:32)
[2025-04-02] VITALS (64 sets, daily range): BP systolic 105–196; BP diastolic 57–133; PULSE 63–125; RESP 16–32; TEMP 36.8–37.2; O2SAT 92–100
--- NOTE | 2025-04-02 00:40 | XRR_ITS ---
PROCEDURE INFORMATION: Exam: XR Chest Exam date and time: 04/02/2025 12:47 AM Age: 65 years old Clinical indication: Shortness of breath; Additional info: Increased o2 demand TECHNIQUE: Imaging protocol: Radiologic exam of the chest. Views: 1 view. COMPARISON: CR XR chest 1V portable [id number] 03/31/2025 11:31 AM FINDINGS: Lungs: Emphysema. Pleural spaces: Unremarkable. No pleural effusion. No pneumothorax. Heart/Mediastinum: Unremarkable. No cardiomegaly. Bones/joints: Unremarkable. XR/XR chest 1V portable [id number] IMPRESSION: No pneumonia. Emphysema.
[2025-04-02 00:45] LABS: ABG PH Result 7.37 (7.35-7.45); Alveolar-Arterial Oxygen Gradi 12.6 mmHg (5-10); Arterial Blood Gas Hematocrit 39.0 % (42-52); Blood Gas Allen Test Pos; Blood Gas Sample Site Radial, left; Blood Gas Sample Type Arterial; Carboxyhemoglobin 0.7 %THgb (0.4-20.1); Glucose Level-ABG 197.0 mg/dL (70-115); HCO3 ABG 35.2 mmol/L (22-26); Ionized Calcium Level - ABG 1.2 mmol/L (1.1-1.4); Methemoglobin 1.3 % (0.4-1.5); Oxygen Saturation ABG 94.8; PO2 ABG 76.9 mmHg (80.0-100.0); PO2 FiO2 Ratio Arterial Blood 219; Potassium Level - ABG 4.1 mmol/L (3.5-5.0); Sodium Level - ABG 138.0 mmol/L (131-143)
--- NOTE | 2025-04-02 01:04 | P.EN_ITS ---
Event Note Event Note: Patient had respiratory distress around 12: 30 -1 a.m. and was sitting at the edge of the bed with supraclavicular dipping and intercostal recession Patient was placed on BiPAP Possible COPD exacerbation since the patient had end-stage COPD? Event Notes Attestations Time Spent in Patient Care: Patient on clinical examination was sweating, having tachycardia with tachypnea and hypertension due to distress. He was having supraclavicular dipping and intercostal recession and was hardly able to speak in full sentences Auscultation revealed partially silent chest with diffuse wheezes. Urgent ABG done and pCO2 was around 60 pH was compensated with value of 7.37. PaO2 was low Stat chest x-ray and 40 IV Lasix given Urgent enya-ec-tada nebulizations requested with BiPAP settings of 24/10, stat S juan-Medrol 60 mg given Blood culture urine cultures and sputum culture sent Respiratory viral panel 2 Ceftriaxone azithromycin started Patient to be transferred to ICU since after discussion about his CODE STATUS and need of intubation if failure of medical management occurs, the patient agreed to do what I should do to help him. Initially he was refusing for intubation and saying I am getting better however if it needed later on then to go ahead with that. I also explained considering either advanced COPD and there could be possibility of right heart strain and increased pulmonary artery pressure that can lead to complicated intubation and cardiac/respiratory arrest during intubation, I also explained further all the risk and benefits and high likelihood of complications postintubation or during intubation considering his advanced COPD and guarded prognosis. He was able to understand without any language barrier and agreed with the plan of care of medical team. Patient reassessed in next 15 to 20 minutes, getting better and was able to lay down with an angle of 45 degrees at the bed.
[2025-04-02] MEDS: methylPREDNISolone sod succ 125 mg/2 mL INJ 60 MG IVP (01:29)
[2025-04-02] MEDS: FUROsemide 10 mg/mL SDV 4mL 40 MG IVP ×2 (01:44→05:00)
[2025-04-02] MEDS: cefTRIAXone 1,000 mg SDV 1000 MG IVP (01:45)
[2025-04-02 01:46] LABS: Hematocrit 34.9 % (37-53); Hemoglobin 11.50 g/dL (11.27-16.99); Mean Corpuscular HGB Conc 33.0 g/dL (30-55); Mean Corpuscular Hemoglobin 30.8 pg (27-33); Mean Corpuscular Volume 93.6 fl (82-101); Nucleated Red Blood Cells % 0 %; Platelet Count 187 10^3/cmm (157-399); Red Blood Count 3.73 10^6/uL (3.85-5.65); White Blood Count 7.67 10^3/uL (3.29-11.43)
--- NOTE | 2025-04-02 02:00 | PC.NURSE ---
Around 0021 this nurse went to give scheduled cardizem. Upon walking into the room patient was very tachypneic, tripoding, whistled breathing, and acknowledged being SOB. This nurse asked RT if patient had any breath treatments avaliable. RT at bedside giving treatments. THis RN stepped out to give another medication but RT stopped nurse stating she was transitioning to bipap due to tachypenia and dropping sats. Upon going back into room patient was tripoding stating he couldn't breath, lung sounds very tight, wheezy, and diminished. O2 read mid 80's on [address] Dr[address] Palumbo notified and RT placing bipap on patient. Dr. Palumbo at bedside and received orders for stat CXR,ABG,60 mg of solumedrol, and transfer to ICU. to place additional orders. chimney construction supervisor notified. Report given to [facility] and all belongings sent with patient.
[2025-04-02 02:05] LABS: Anion Gap 15.1 (5-19); Blood Urea Nitrogen 25 mg/dL (8-23); Calcium 9.1 mg/dL (8.5-10.5); Carbon Dioxide 32 mmol/L (22-29); Chloride 94 mmol/L (98-107); Glucose 196 mg/dL (65-115); Osmolality Calculated 294 mOsm/kg (285-295); Potassium 4.1 mmol/L (3.5-5.1); Sodium 137 mmol/L (136-145)
[2025-04-02] MEDS: methylPREDNISolone sod succ 40 mg/mL INJ IVP ×3 (02:15→17:15)
[2025-04-02] MEDS: digoxin 250 mcg/ml INJ 2 mL 125 MCG IVP (02:15)
[2025-04-02 03:58] LABS: Coronavirus 229E,HKU1,NL63,OC4 Not Detected (NOT DETECT); Parainfluenza Virus Type 1 Not Detected (NOT DETECT); Parainfluenza Virus Type 2 Not Detected (NOT DETECT); Parainfluenza Virus Type 3 Not Detected (NOT DETECT); Parainfluenza Virus Type 4 Not Detected (NOT DETECT); SARS-COV-2 Not Detected (NOT DETECT)
[2025-04-02 04:23] LABS: Hematocrit 35.2 % (37-53); Hemoglobin 11.30 g/dL (11.27-16.99); Mean Corpuscular HGB Conc 32.1 g/dL (30-55); Mean Corpuscular Hemoglobin 29.8 pg (27-33); Mean Corpuscular Volume 92.9 fl (82-101); Nucleated Red Blood Cells % 0 %; Platelet Count 205 10^3/cmm (157-399); Red Blood Count 3.79 10^6/uL (3.85-5.65); White Blood Count 8.56 10^3/uL (3.29-11.43)
[2025-04-02 04:38] LABS: Alanine Aminotransferase 48 U/L (0-41); Albumin Level 4.1 g/dL (3.5-5.2); Alkaline Phosphatase 90 U/L (40-130); Anion Gap 15.0 (5-19); Aspartate Amino Transferase 29 U/L (0-40); Blood Urea Nitrogen 24 mg/dL (8-23); Calcium 9.0 mg/dL (8.5-10.5); Carbon Dioxide 33 mmol/L (22-29); Chloride 93 mmol/L (98-107); Globulin 2.5 g/dL (1.3-4.6); Glucose 190 mg/dL (65-115); Magnesium 2.0 mg/dL (1.7-2.3); Osmolality Calculated 293 mOsm/kg (285-295); Potassium 4.0 mmol/L (3.5-5.1); Sodium 137 mmol/L (136-145); Total Protein 6.6 g/dL (6.6-8.7)
[2025-04-02] MEDS: ondansetron 2 mg/ML SDV 2 mL 4 MG IVP (07:14)
--- NOTE | 2025-04-02 07:16 | PC.NURSE ---
AM assessment: Bipap removed, placed on 3L NC,patient reporting nausea, zofran given. Reports no pain.
[2025-04-02 09:11] LABS: ABG PCO2 60.8 mmHg (35-45)
--- NOTE | 2025-04-02 09:27 | PM.CONSULT ---
Providers/Reason For Consult Consulting Physician/Specialty*: ALESSANDRO Aquino MD/cardiology Reason for Consult*: Patient with atrial fibrillation and uncontrolled ventricular response rate Requesting Physician: Dr. Villalobos Attending Physician: Randy Villalobos MD Primary Care Provider: Cindy Joseph NP History of Present Illness History of Present Illness Darren Foley is a 65 year old male, is admitted to hospital through the emergency room, where he presented with complaints of increasing palpitations and shortness of breath. Patient was found to be in atrial fibrillation with rapid ventricular rate. He is admitted to the hospital for further evaluation and management. He was started on amiodarone IV. He also was given IV digoxin and was started on p.o. Cardizem. His heart rate still remains uncontrolled. Cardiology consult is requested for further cardiac evaluation recommendations. This patient is a poor historian. He has a history of palpitation and atrial fibrillation? , for some time. For the last week or so, he has been experiencing increasing palpitations associated with shortness of breath. He also may have some chest discomfort. But he was more concerned about the palpitations and shortness of breath. Occasionally he may get dizzy. No syncopal episode. No other associated symptoms. He has a baseline shortness of breath with activities. He is known to have severe COPD. He has a history of heavy smoking abuse, started at the age of 14. He has been smoking 1 to 1-1/2 pack a day. He also started smoking marijuana around the same age. He currently smokes at least 3 joints a day. No other substance abuse. He used to abuse alcohol heavily up until a year ago. Currently he drinks only once in a while. He denies any fever, chills or cough. No orthopnea PND. No severe leg swelling. He is known to have peripheral artery disease. 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 Attempt was made to intervene the blockage percutaneously. It was unsuccessful. Subsequently he was sent to [place] where he underwent percutaneous intervention. According to the patient, he had a 3 stents in the iliac artery?. Currently he is feeling okay with no leg pain. He also has a history of atherosclerotic heart diseas by angiogram done approximately 14 years ago in [place]. He was told to have 60% blockage. He underwent a Myocardial perfusion imaging yesterday. He was found no severe ischemia. He had features of nonischemic cardiomyopathy. The past medical history includes severe COPD as mentioned above. History of anxiety/depressive illness. Father had myocardial infarction in his 50s. Mother of kidney failure. No other significant family history. He started having some nausea and vomiting this morning. Telemetry shows atrial fibrillation with rapid ventricular rate in the 110s to 120s. Blood pressure is 146/86. He is remaining afebrile Review of Systems Narrative: CONSTITUTIONAL: No fever or chills. EYES: No blurring of vision or other visual disturbances lately. ENT: No hoarseness of voice, auditory disturbances or sore throat. CARDIOVASCULAR: As mentioned above. RESPIRATORY: Severe COPD as mentioned above GASTROINTESTINAL: No hematemesis or melena. GENITOURINARY: No dysuria or hematuria. INTEGUMENTARY: History of easy bruising NEURO: No transient ischemic attacks or amaurosis. PSYCHIATRIC: History of anxiety/depressive illness HEMATOLOGIC: No bleeding disorders or significant anemia. ENDOCRINE: No history of polyuria or polydipsia. MUSCULOSKELETAL: No recent joint pain or swelling. ALLERGY/IMMUNOLOGY: As mentioned above. Medications/Allergies Home Medications ?Medication ?Instructions ?Recorded ?Confirmed ?Last Taken ?Type albuterol sulfate 90 mcg/actuation 2 inh inhalation Q4H PRN Shortness 04/03/22 03/31/25 Unknown History breath activated powder inhaler Of Breath trazodone 100 mg tablet 250 mg PO DAILY 04/03/22 03/31/25 03/30/25 History brexpiprazole 1 mg tablet (Rexulti) 1 mg PO DAILY 06/23/23 03/31/25 03/30/25 History fluoxetine 20 mg capsule 20 mg PO DAILY 06/23/23 03/31/25 03/30/25 History aspirin 81 mg tablet,delayed 81 mg PO DAILY #30 tabs 09/23/23 03/31/25 01/22/24 05:30 Rx release (Adult Low Dose Aspirin) furosemide 20 mg tablet 20 mg PO DAILY #90 tabs 11/26/23 03/31/25 03/30/25 Rx potassium chloride 10 mEq 10 meq PO DAILY #90 caps 11/26/23 03/31/25 03/30/25 Rx capsule,extended release budesonide 160 mcg-glycopyr 9 2 inh inhalation BID 01/22/24 03/31/25 03/30/25 History mcg-formot 4.8 mcg/actuation HFA inhaler (Breztri Aerosphere) budesonide-formoterol HFA 160 1 puff inhalation BID 03/31/25 03/31/25 Unknown History mcg-4.5 mcg/actuation aerosol inhaler clopidogrel 75 mg tablet 75 mg PO DAILY 03/31/25 03/31/25 03/30/25 History fluoxetine 40 mg capsule 40 mg PO DAILY 03/31/25 03/31/25 03/30/25 History fluticasone propionate 50 1 spray intranasal CONT 03/31/25 03/31/25 03/30/25 History mcg/actuation nasal spray,suspension omeprazole 20 mg capsule,delayed 20 mg PO QAM 03/31/25 03/31/25 03/30/25 History release roflumilast 500 mcg tablet 500 mcg PO DAILY 03/31/25 03/31/25 03/31/25 History Allergies Allergy/AdvReac Type Severity Reaction Status Date / Time No Known Drug Allergies Allergy Unknown Verified 01/21/24 08:27 Current Medications Generic Name Dose Route Start Last Admin Trade Name Freq PRN Reason Stop Dose Admin Aspirin 81 mg 04/01/25 05:00 04/02/25 05:01 Aspirin 81 Mg Ec Tablet PO 81 mg DAILY BIENVENIDO Administration Budesonide 0.5 mg 04/01/25 08:00 04/02/25 08:10 Budesonide 0.5 Mg/2 Ml Neb INHALATION 0.5 mg BID.RESPIRATORY BIENVENIDO Administration Ceftriaxone Sodium 1,000 mg 04/02/25 01:15 04/02/25 01:45 Ceftriaxone 1,000 Mg Sdv IVP 1,000 mg Q24H BIENVENIDO Administration Protocol Clopidogrel Bisulfate 75 mg 04/01/25 05:00 04/02/25 05:01 Clopidogrel 75 Mg Tablet PO 75 mg DAILY BIENVENIDO Administration Diltiazem HCl 60 mg 04/01/25 23:00 04/02/25 05:01 Diltiazem 30 Mg Tablet PO 60 mg QID BIENVENIDO Administration Docusate Sodium 100 mg 03/31/25 17:00 04/02/25 05:01 Docusate Sodium 100 Mg Capsule PO 100 mg BID BIENVENIDO Administration Enoxaparin Sodium 60 mg 03/31/25 16:17 04/02/25 05:00 Enoxaparin 100 Mg/Ml Syringe 1 mg/kg (60 mg) 60 mg SUBCUT Administration Q12H BIENVENIDO Famotidine 20 mg 03/31/25 17:00 04/02/25 05:01 Famotidine 20 Mg Tablet PO 20 mg BID BIENVENIDO Administration Fluticasone Propionate 1 spray 03/31/25 16:17 04/01/25 15:24 Fluticasone Nasal [place] 16gm Btl INTRANASAL 1 spray CONT BIENVENIDO Administration Furosemide 40 mg 04/01/25 05:00 04/02/25 05:00 Furosemide 10 Mg/Ml Sdv 4ml IVP 40 mg DAILY BIENVENIDO Administration Azithromycin 500 mg/ Sodium 250 mls @ 250 mls/hr 04/02/25 01:15 04/02/25 07:15 Chloride IV Infused Q24H BIENVENIDO Infusion Protocol Levalbuterol HCl 0.63 mg 04/01/25 16:47 04/02/25 02:24 Levalbuterol 0.63 Mg/3 Ml Neb INHALATION 0.63 mg Q4H.RESPIRATORY PRN Administration SHORTNESS OF BREATH Methylprednisolone Sodium Succinate 40 mg 04/01/25 02:00 04/02/25 02:15 Methylprednisolone Sod Succ 40 Mg/Ml Inj IVP 40 mg Q8H BIENVENIDO Administration Nicotine 1 patch 04/01/25 05:00 04/02/25 05:00 Nicotine 21 Mg Patch TRANSDERMA 1 patch DAILY BIENVENIDO Administration Ondansetron HCl 4 mg 03/31/25 16:17 04/02/25 07:14 Ondansetron 2 Mg/Ml Sdv 2 Ml IVP 4 mg Q6H PRN Administration vomiting, or N/V if npo Pantoprazole Sodium 40 mg 04/01/25 05:00 04/02/25 05:[address] 40 Mg Tablet PO 40 mg QAM BIENVENIDO Administration Roflumilast 500 mcg 04/01/25 05:00 04/02/25 05:01 Roflumilast 500 Mcg Tablet PO 500 mcg DAILY BIENVENIDO Administration Trazodone HCl 200 mg 03/31/25 21:00 04/01/25 20:33 Trazodone 100 Mg Tablet PO 200 mg BEDTIME BIENVENIDO Administration PFSH Acute PFSH: Medical History HTN (hypertension) Anxiety Atrial fibrillation Chest pain COPD (chronic obstructive pulmonary disease) Cigarette nicotine dependence Atherosclerosis Pre-syncope Dizziness Insomnia Shortness of breath Depression Fatigue Social History Smoking and tobacco/nicotine status: current every day tobacco/nicotine user Vitals/I&O/Wt Last Vital Signs Temp 98.4 F 04/02/25 07:30 Pulse 106 H 04/02/25 08:08 Resp 22 H 04/02/25 08:08 BP 132/82 04/02/25 08:00 Pulse Ox 96 04/02/25 08:08 O2 Del Method Nasal Cannula 04/02/25 08:08 O2 Flow Rate 3 04/02/25 08:08 FiO2 35 04/02/25 03:55 04/01/25 04/02/25 04/02/25 22:59 06:59 14:59 Intake Total 760.353 / 1010.353 180 / 1190.353 250 / 250 Output Total 450 / 900 1150 / 2050 450 / 450 Balance 310.353 / 110.353 -970 / -859.647 -200 / -200 Weight last 48 hrs Weight 138 lb 14.259 oz Weight 138 lb 14.259 oz Weight 134 lb 7.712 oz Weight 134 lb 7.712 oz Weight 136 lb 14.4 oz Weight 138 lb Physical Exam Narrative: GENERAL: The patient is alert and oriented times three. Not in any acute distress. Slightly tachypneic. HEENT: No significant pallor, icterus or lymphadenopathy.Oral cavity: There are no mucous membrane lesions. NECK: Trachea appears to be central. No masses noted. No JVD or thyromegaly appreciated. RESPIRATORY: Chest is symmetrical. No intercostals muscle retraction or any accessory muscle activation. There is no chest wall tenderness. Breath sounds are heard bilaterally. Expiratory wheezing bilaterally. BREASTS: Deferred. HEART: The heart sounds are normal. No S3 or S4. No significant murmurs. No pericardial rub ABDOMEN: No vessel pulsations or distention. No tenderness. No organomegaly appreciated. Bowel sounds are normally heard. : Deferred. RECTAL: Deferred. LYMPHATIC: No lymphadenopathy noted in the neck. EXTREMITIES: Extensive bruising in the upper extremities. Peripheral pulses are weak bilaterally MUSCULOSKELETAL: No acute joint deformities or swelling SKIN: There are no significant rashes or ecchymosis NEUROPSYCHIATRIC: The patient is alert and oriented x3. Appears to be in a good mood. No tremors or rigidity noted. Data 04/02/25 03:21 04/02/25 03:21 Other Labs: Laboratory Last Values WBC 8.56 10^3/uL (3.29-11.43) 04/02/25 03:21 RBC 3.79 10^6/uL (3.85-5.65) L 04/02/25 03:21 Hgb 11.30 g/dL (11.27-16.99) 04/02/25 03:21 Hct 35.2 % (37-53) L 04/02/25 03:21 MCV 92.9 fl (82-101) 04/02/25 03:21 MCH 29.8 pg (27-33) 04/02/25 03:21 MCHC 32.1 g/dL (30-55) 04/02/25 03:21 RDW 11.9 % (12.1-15.1) L 04/02/25 03:21 Plt Count 205 10^3/cmm (157-399) 04/02/25 03:21 MPV 9.7 fL (7.4-10.4) 04/02/25 03:21 Neut % (Auto) 91.7 % 04/02/25 03:21 Lymph % (Auto) 3.5 % 04/02/25 03:21 [place] % (Auto) 4.1 % 04/02/25 03:21 Eos % (Auto) 0.0 % 04/02/25 03:21 Baso % (Auto) 0.0 % 04/02/25 03:21 Neut # (Auto) 7.85 10^3/uL (1.8-7.7) H 04/02/25 03:21 Lymph # (Auto) 0.3 10^3/uL (0.8-4.8) L 04/02/25 03:21 [place] # (Auto) 0.4 10^3/uL (0.2-0.9) 04/02/25 03:21 Eos # (Auto) 0.0 10^3/uL (0.0-0.8) 04/02/25 03:21 Baso # (Auto) 0.0 10^3/uL (0.0-0.1) 04/02/25 03:21 Nucleated RBC % (auto) 0 % 04/02/25 03:21 Nucleated RBCs # 0.0 /100WBC 04/02/25 03:21 PT 12.50 SECONDS (12.1-14.9) 03/31/25 11:45 INR 0.88 (0.8-1.2) 03/31/25 11:45 APTT 26.6 SECONDS (23.9-36.7) 03/31/25 11:45 D-Dimer 1.30 ug/mLFEU (0-0.59) H 03/31/25 19:09 Specimen Type Arterial 04/02/25 00:35 Sample Site Radial, left 04/02/25 00:35 ABG pH 7.37 (7.35-7.45) 04/02/25 00:35 ABG pCO2 60.8 mmHg (35-45) H* 04/02/25 00:35 ABG pO2 76.9 mmHg (80.0-100.0) L 04/02/25 00:35 ABG PO2/FiO2 Ratio 219 04/02/25 00:35 ABG HCO3 35.2 mmol/L (22-26) H 04/02/25 00:35 ABG O2 Saturation 94.8 04/02/25 00:35 ABG Base Excess 7.9 mmol/L (-2.0-2.0) H 04/02/25 00:35 Ananth Test Pos 04/02/25 00:35 A-a O2 Gradient 12.6 mmHg (5-10) H 04/02/25 00:35 Hematocrit 39.0 % (42-52) L 04/02/25 00:35 Hgb O2 Saturation 92.9 % (95-100) L 04/02/25 00:35 Carboxyhemoglobin 0.7 %THgb (0.4-20.1) 04/02/25 00:35 Methemoglobin 1.3 % (0.4-1.5) 04/02/25 00:35 Total Hemoglobin 12.7 g/dL (14-18) L 04/02/25 00:35 Sodium 138.0 mmol/L (131-143) 04/02/25 00:35 Potassium 4.1 mmol/L (3.5-5.0) 04/02/25 00:35 Glucose 197.0 mg/dL (70-115) H 04/02/25 00:35 Ionized Calcium 1.2 mmol/L (1.1-1.4) 04/02/25 00:35 O2 Delivery Device Bipap 04/02/25 00:35 FiO2 35.0 % 04/02/25 00:35 Cancer Genetics Assistant ID [email or web address] 04/02/25 00:35 Sodium 137 mmol/L (136-145) 04/02/25 03:21 Potassium 4.0 mmol/L (3.5-5.1) 04/02/25 03:21 Chloride 93 mmol/L (98-107) L 04/02/25 03:21 Carbon Dioxide 33 mmol/L (22-29) H 04/02/25 03:21 Anion Gap 15.0 (5-19) 04/02/25 03:21 BUN 24 mg/dL (8-23) H 04/02/25 03:21 Creatinine 0.7 mg/dL (0.7-1.2) 04/02/25 03:21 GFR Calculation 113.5 mL/min (90-130) 04/02/25 03:21 Glucose 190 mg/dL (65-115) H 04/02/25 03:21 Estimat Average Glucose 103 03/31/25 11:45 Hemoglobin A1c 5.2 % (4.0-6.0) 03/31/25 11:45 Calculated Osmolality 293 mOsm/kg (285-295) 04/02/25 03:21 Lactic Acid 0.9 mmol/L (0.5-2.2) 03/31/25 15:56 Calcium 9.0 mg/dL (8.5-10.5) 04/02/25 03:21 Phosphorus 3.7 mg/dL (2.5-4.5) 04/02/25 03:21 Magnesium 2.0 mg/dL (1.7-2.3) 04/02/25 03:21 Iron 87 ug/dL (59-158) 03/31/25 11:45 TIBC 307 mcg/dl 03/31/25 11:45 % Saturation 28.3 % (20-50) 03/31/25 11:45 Unsat Iron Binding 220 ug/dL (112-347) 03/31/25 11:45 Total Bilirubin 0.3 mg/dL (0.15-1.2) 04/02/25 03:21 AST 29 U/L (0-40) 04/02/25 03:21 ALT 48 U/L (0-41) H 04/02/25 03:21 Alkaline Phosphatase 90 U/L (40-130) 04/02/25 03:21 Troponin T Baseline 60 ng/L (0-15) H 03/31/25 11:45 Troponin T 120 Minute 59.70 ng/L (0-15) H 03/31/25 13:34 Delta Troponin T -0.30 ABS# (0-10) L 03/31/25 13:34 Troponin T Hi Sens 6Hr 68.13 ng/L (0-15) H 03/31/25 17:58 Troponin T Hi Sens 6Hr Delta 8.13 ng/L (0-12) 03/31/25 17:58 NT-Pro-B Natriuret Pep 1055 pg/mL (0-125) H 03/31/25 11:45 Total Protein 6.6 g/dL (6.6-8.7) 04/02/25 03:21 Albumin 4.1 g/dL (3.5-5.2) 04/02/25 03:21 Globulin 2.5 g/dL (1.3-4.6) 04/02/25 03:21 Triglycerides 48 mg/dL (0-150) 04/01/25 04:20 Cholesterol 141 mg/dL (0-200) 04/01/25 04:20 LDL Cholesterol, Calc 67 mg/dL (50-129) 04/01/25 04:20 HDL Cholesterol 64 mg/dL (60-100) 04/01/25 04:20 LDL/HDL Ratio 1.05 RATIO (0.00-3.22) 04/01/25 04:20 Cholesterol/HDL Ratio 2.20 mg/dL (1.0-5.00) 04/01/25 04:20 Vitamin B12 378 pg/mL (232-1245) 03/31/25 11:45 Folate 10.6 ng/mL (4.5-32.2) 04/01/25 04:20 Procalcitonin 0.06 ng/mL (0-0.5) 04/01/25 04:20 TSH 1.24 uIU/mL (0.27-4.20) 03/31/25 11:45 Adenovirus (PCR) Not detected (NOT DETECT) 04/02/25 01:37 C. pneumoniae DNA (PCR) Not detected (NOT DETECT) 04/02/25 01:37 Coronavirus 229E (PCR) Not detected (NOT DETECT) 04/02/25 01:37 Human Metapneumovir PCR Not detected (NOT DETECT) 04/02/25 01:37 Influenza A (H1) PCR Not detected (NOT DETECT) 04/02/25 01:37 Influ A (H1/09) PCR Not detected (NOT DETECT) 04/02/25 01:37 Influenza A (H3) PCR Not detected (NOT DETECT) 04/02/25 01:37 Influenza Type A (PCR) Not detected (NOT DETECT) 04/02/25 01:37 Influenza Type B (PCR) Not detected (NOT DETECT) 04/02/25 01:37 M. pneumoniae (PCR) Not detected (NOT DETECT) 04/02/25 01:37 Parainfluenza 1 (PCR) Not detected (NOT DETECT) 04/02/25 01:37 Parainfluenza 2 (PCR) Not detected (NOT DETECT) 04/02/25 01:37 Parainfluenza 3 (PCR) Not detected (NOT DETECT) 04/02/25 01:37 Parainfluenza 4 (PCR) Not detected (NOT DETECT) 04/02/25 01:37 RSV Type A (PCR) Not detected (NOT DETECT) 04/02/25 01:37 RSV Type B (PCR) Not detected (NOT DETECT) 04/02/25 01:37 Entero/Rhino (PCR) Not detected (NOT DETECT) 04/02/25 01:37 SARS-CoV-2 (PCR) Not detected (NOT DETECT) 04/02/25 01:37 Other data: Echocardiogram from 03/31/2025 Mild diffuse hypokinesis of the septum and the anteroseptum. LV ejection fraction around 44%.Grade I/IV diastolic dysfunction (abnormal relaxation filling pattern), normal to mildly elevated filling pressures. Mild biatrial enlargement Moderate mitral valve regurgitation. Thickened aortic valve. Trace aortic valve regurgitation. Trace tricuspid valve regurgitation. The PA pressure could not be calculated because of the poor Doppler signals. There is no pericardial effusion. There are no intracardiac masses. Compared to the study from 07/22/2023, there is a drop in the LV ejection fraction from 57% to 44% A&P Assessment and plan 1. Atrial fibrillation with rapid ventricular response: Patient is a severe COPD, ongoing smoking abuse, LV dysfunction, anxiety/depressive illness, etc. are contributing to the tachyarrhythmia. At this point, because of his severe COPD I may hold off on the amiodarone. The Cardizem may be continued. I also may start him on metoprolol 25 mg p.o. twice daily. Based on the clinical progress, further recommendations will be made. 2. Atherosclerotic heart disease of [place] coronary artery with other forms of angina pectoris: Since the patient has no evidence of ischemia, based on the perfusion scan, he may not require any further intervention at this point. May continue the current measures. 3. Non-ischemic cardiomyopathy: In view of the LV dysfunction, I may start him on a low-dose of ARB namely losartan 25 mg p.o. daily. We may consider switching to Entresto later on. 4. Acute on chronic combined systolic and diastolic congestive heart failure: Patient may be treated with a careful IV diuresis. 5. Primary hypertension: Continue on the above medications. The blood pressure needs to be closely monitored. 6. Chronic obstructive pulmonary disease, unspecified COPD type: Patient is once again strongly advised to quit smoking. Cardiovascular implications were discussed with the patient. Plan: Losartan 25 mg p.o. now and daily Discontinue amiodarone Discontinue aspirin Continue Lovenox Consider switching to Eliquis Based on the clinical progress, further recommendations will be made. Thank you for the opportunity to evaluate this patient and make these recommendations PDMP PDMP Reviewed: Not Reviewed Coding Level of Care Code 71147 Diagnoses Atrial fibrillation with rapid ventricular response I48.91 Atherosclerotic heart disease of [place] coronary artery with other forms of angina pectoris I25.118 Non-ischemic cardiomyopathy I42.8 Acute on chronic combined systolic and diastolic congestive heart failure I50.43 Heart failure chronicity: acute on chronic Heart failure type: combined systolic and diastolic Primary hypertension I10 Hypertension type: primary hypertension Chronic obstructive pulmonary disease, unspecified COPD type J44.9 COPD type: unspecified COPD
[2025-04-02] MEDS: metoclopramide 5 mg/mL SDV 2 mL IVP (10:23)
[2025-04-02] MEDS: fluticasone nasal spray 16gm Btl 1 SPRAY INTRANASAL (16:19)
[2025-04-02] MEDS: NON-FORMULARY MEDICATION (Budesonide-Glycopyr-Formoterol [Breztri Aerosphere] 160-9-4.8 mc 2 EACH INHALATION (19:56)
[2025-04-03] VITALS (30 sets, daily range): BP systolic 91–126; BP diastolic 57–81; PULSE 67–95; RESP 14–34; TEMP 37.1; O2SAT 93–99
[2025-04-03] MEDS: cefTRIAXone 1,000 mg SDV 1000 MG IVP (01:36)
[2025-04-03] MEDS: methylPREDNISolone sod succ 40 mg/mL INJ IVP ×2 (01:36→09:47)
[2025-04-03] MEDS: FUROsemide 10 mg/mL SDV 4mL 40 MG IVP (05:08)
[2025-04-03 05:13] LABS: Hematocrit 33.1 % (37-53); Hemoglobin 10.80 g/dL (11.27-16.99); Mean Corpuscular HGB Conc 32.6 g/dL (30-55); Mean Corpuscular Hemoglobin 30.4 pg (27-33); Mean Corpuscular Volume 93.2 fl (82-101); Nucleated Red Blood Cells % 0 %; Platelet Count 180 10^3/cmm (157-399); Red Blood Count 3.55 10^6/uL (3.85-5.65); White Blood Count 7.00 10^3/uL (3.29-11.43)
[2025-04-03 05:43] LABS: Alanine Aminotransferase 35 U/L (0-41); Albumin Level 3.8 g/dL (3.5-5.2); Alkaline Phosphatase 73 U/L (40-130); Anion Gap 11.4 (5-19); Aspartate Amino Transferase 14 U/L (0-40); Blood Urea Nitrogen 27 mg/dL (8-23); Calcium 8.8 mg/dL (8.5-10.5); Carbon Dioxide 36 mmol/L (22-29); Chloride 95 mmol/L (98-107); Globulin 2.1 g/dL (1.3-4.6); Glucose 146 mg/dL (65-115); Magnesium 2.3 mg/dL (1.7-2.3); Osmolality Calculated 294 mOsm/kg (285-295); Potassium 4.4 mmol/L (3.5-5.1); Sodium 138 mmol/L (136-145); Total Protein 5.9 g/dL (6.6-8.7)
--- NOTE | 2025-04-03 09:33 | P.DS_ITS ---
Discharge Providers Date of Admission: 03/31/25 14:09 Date of Discharge: April 03, 2025 Attending Provider at Admission: Randy Villalobos MD Attending Provider at Discharge: Randy Villalobos MD Primary Care Provider: Cindy Joseph NP Diagnoses at Discharge Discharge Diagnosis 1. Atrial fibrillation with rapid ventricular response: 2. Acute on chronic combined systolic and diastolic congestive heart failure: 3. Non-ischemic cardiomyopathy: 4. Chronic obstructive pulmonary disease, unspecified COPD type: 5. Primary hypertension: 6. Shortness of breath: 7. Peripheral arterial occlusive disease: 8. Atherosclerotic heart disease of [place] coronary artery with other forms of angina pectoris: Reason for Visit Reason for Visit: lower leg swelling - high hr Hospital Course Hospital Course Darren Foley is a 65 year old male chronic smoker with past medical history of peripheral arterial disease, CAD, atrial fibrillation not on anticoagulation, COPD presents to the ER today from clinic. Patient states he has been having palpitations, difficulty in breathing for last 5 days associated with chest heaviness which is central for last 3 days. Because of palpitations he went to the clinic where he was found to have rapid heart rate hence he was sent to the ER. In the ER he was found to be having atrial fibrillation with rapid ventricular response for which he was given few pushes of IV metoprolol. As his heart rate continued to be elevated he was switched over to Cardizem drip. On examination he was on 7.5 of IV Cardizem with heart rate running in 115's. Complaining of difficulty in breathing. Patient was admitted to the for further evaluation and management of A-fib with RVR. He was started first amiodarone drip. Heart rate was difficult to control even after amiodarone drip, oral Cardizem and digoxin load. He did have episode of respiratory failure because of COPD exacerbation. Cardiology was consulted. Later he was transition to oral metoprolol and Cardizem and his heart rate stabilized once COPD exacerbation was resolved. Echocardiogram was done which showed an EF of 45%. Ischemia was ruled out with a negative stress test. He is been discharged home in stable condition on oral metoprolol and Cardizem with advised to follow-up with primary care provider within outpatient. He was counseled in detail to withhold smoking. Physical Exam Narrative: General: No acute distress, AO x3 HEENT: PERRLA, pupils bilaterally equal and reactive Chest: Bilateral bronchial breath sounds all over lung zamorano occasional rhonchi CVS: S1-S2 irregularly irregular, no murmurs, tachycardia, no gallops, no rubs Abdomen: Soft, nontender, no organomegaly, bowel sounds present Neuro: No focal deficits, no facial deformity, AO x3, power 5/5 in all limbs Discharge Data Studies Completed and Pending Completed Studies During Hospitalization Category Date Time Status CXRP [XR chest 1V portable [id number]] Routine Exams 04/02/25 00:40 Completed Sestamibi Stress Test Request Routine Exams 04/01/25 00:11 Completed XR chest 1V portable [id number] Stat Exams 03/31/25 11:27 Completed NM ham perf SPECT r/s* [id number] Routine Nuc Med 04/01/25 00:12 Completed CV. echo complete* [id number] Routine Ultrasound 03/31/25 16:17 Completed Pending at discharge Category Date Time Status Blood Culture Stat Lab 04/02/25 01:30 Received Sputum Culture and Gram Stain Stat Lab 04/02/25 01:10 Uncollected Urine Culture Stat Lab 04/02/25 02:41 Received Radiology Impressions Chest X-Ray 04/02/25 00:40 IMPRESSION: No pneumonia. Emphysema. Laboratory Results WBC 7.00 10^3/uL (3.29-11.43) 04/03/25 04:35 RBC 3.55 10^6/uL (3.85-5.65) L 04/03/25 04:35 Hgb 10.80 g/dL (11.27-16.99) L 04/03/25 04:35 Hct 33.1 % (37-53) L 04/03/25 04:35 MCV 93.2 fl (82-101) 04/03/25 04:35 MCH 30.4 pg (27-33) 04/03/25 04:35 MCHC 32.6 g/dL (30-55) 04/03/25 04:35 RDW 12.0 % (12.1-15.1) L 04/03/25 04:35 Plt Count 180 10^3/cmm (157-399) 04/03/25 04:35 MPV 9.8 fL (7.4-10.4) 04/03/25 04:35 Neut % (Auto) 85.6 % 04/03/25 04:35 Lymph % (Auto) 8.4 % 04/03/25 04:35 [place] % (Auto) 5.3 % 04/03/25 04:35 Eos % (Auto) 0.0 % 04/03/25 04:35 Baso % (Auto) 0.1 % 04/03/25 04:35 Neut # (Auto) 5.99 10^3/uL (1.8-7.7) 04/03/25 04:35 Lymph # (Auto) 0.6 10^3/uL (0.8-4.8) L 04/03/25 04:35 [place] # (Auto) 0.4 10^3/uL (0.2-0.9) 04/03/25 04:35 Eos # (Auto) 0.0 10^3/uL (0.0-0.8) 04/03/25 04:35 Baso # (Auto) 0.0 10^3/uL (0.0-0.1) 04/03/25 04:35 Nucleated RBC % (auto) 0 % 04/03/25 04:35 Nucleated RBCs # 0.0 /100WBC 04/03/25 04:35 PT 12.50 SECONDS (12.1-14.9) 03/31/25 11:45 INR 0.88 (0.8-1.2) 03/31/25 11:45 APTT 26.6 SECONDS (23.9-36.7) 03/31/25 11:45 D-Dimer 1.30 ug/mLFEU (0-0.59) H 03/31/25 19:09 Specimen Type Arterial 04/02/25 00:35 Sample Site Radial, left 04/02/25 00:35 ABG pH 7.37 (7.35-7.45) 04/02/25 00:35 ABG pCO2 60.8 mmHg (35-45) H* 04/02/25 00:35 ABG pO2 76.9 mmHg (80.0-100.0) L 04/02/25 00:35 ABG PO2/FiO2 Ratio 219 04/02/25 00:35 ABG HCO3 35.2 mmol/L (22-26) H 04/02/25 00:35 ABG O2 Saturation 94.8 04/02/25 00:35 ABG Base Excess 7.9 mmol/L (-2.0-2.0) H 04/02/25 00:35 Ananth Test Pos 04/02/25 00:35 A-a O2 Gradient 12.6 mmHg (5-10) H 04/02/25 00:35 Hematocrit 39.0 % (42-52) L 04/02/25 00:35 Hgb O2 Saturation 92.9 % (95-100) L 04/02/25 00:35 Carboxyhemoglobin 0.7 %THgb (0.4-20.1) 04/02/25 00:35 Methemoglobin 1.3 % (0.4-1.5) 04/02/25 00:35 Total Hemoglobin 12.7 g/dL (14-18) L 04/02/25 00:35 Sodium 138.0 mmol/L (131-143) 04/02/25 00:35 Potassium 4.1 mmol/L (3.5-5.0) 04/02/25 00:35 Glucose 197.0 mg/dL (70-115) H 04/02/25 00:35 Ionized Calcium 1.2 mmol/L (1.1-1.4) 04/02/25 00:35 O2 Delivery Device Bipap 04/02/25 00:35 FiO2 35.0 % 04/02/25 00:35 Watchstander ID [email or web address] 04/02/25 00:35 Sodium 138 mmol/L (136-145) 04/03/25 04:35 Potassium 4.4 mmol/L (3.5-5.1) 04/03/25 04:35 Chloride 95 mmol/L (98-107) L 04/03/25 04:35 Carbon Dioxide 36 mmol/L (22-29) H 04/03/25 04:35 Anion Gap 11.4 (5-19) 04/03/25 04:35 BUN 27 mg/dL (8-23) H 04/03/25 04:35 Creatinine 0.8 mg/dL (0.7-1.2) 04/03/25 04:35 GFR Calculation 97.3 mL/min (90-130) 04/03/25 04:35 Glucose 146 mg/dL (65-115) H 04/03/25 04:35 Estimat Average Glucose 103 03/31/25 11:45 Hemoglobin A1c 5.2 % (4.0-6.0) 03/31/25 11:45 Calculated Osmolality 294 mOsm/kg (285-295) 04/03/25 04:35 Lactic Acid 0.9 mmol/L (0.5-2.2) 03/31/25 15:56 Calcium 8.8 mg/dL (8.5-10.5) 04/03/25 04:35 Phosphorus 3.6 mg/dL (2.5-4.5) 04/03/25 04:35 Magnesium 2.3 mg/dL (1.7-2.3) 04/03/25 04:35 Iron 87 ug/dL (59-158) 03/31/25 11:45 TIBC 307 mcg/dl 03/31/25 11:45 % Saturation 28.3 % (20-50) 03/31/25 11:45 Unsat Iron Binding 220 ug/dL (112-347) 03/31/25 11:45 Total Bilirubin 0.2 mg/dL (0.15-1.2) 04/03/25 04:35 AST 14 U/L (0-40) 04/03/25 04:35 ALT 35 U/L (0-41) 04/03/25 04:35 Alkaline Phosphatase 73 U/L (40-130) 04/03/25 04:35 Troponin T Baseline 60 ng/L (0-15) H 03/31/25 11:45 Troponin T 120 Minute 59.70 ng/L (0-15) H 03/31/25 13:34 Delta Troponin T -0.30 ABS# (0-10) L 03/31/25 13:34 Troponin T Hi Sens 6Hr 68.13 ng/L (0-15) H 03/31/25 17:58 Troponin T Hi Sens 6Hr Delta 8.13 ng/L (0-12) 03/31/25 17:58 NT-Pro-B Natriuret Pep 1055 pg/mL (0-125) H 03/31/25 11:45 Total Protein 5.9 g/dL (6.6-8.7) L 04/03/25 04:35 Albumin 3.8 g/dL (3.5-5.2) 04/03/25 04:35 Globulin 2.1 g/dL (1.3-4.6) 04/03/25 04:35 Triglycerides 48 mg/dL (0-150) 04/01/25 04:20 Cholesterol 141 mg/dL (0-200) 04/01/25 04:20 LDL Cholesterol, Calc 67 mg/dL (50-129) 04/01/25 04:20 HDL Cholesterol 64 mg/dL (60-100) 04/01/25 04:20 LDL/HDL Ratio 1.05 RATIO (0.00-3.22) 04/01/25 04:20 Cholesterol/HDL Ratio 2.20 mg/dL (1.0-5.00) 04/01/25 04:20 Vitamin B12 378 pg/mL (232-1245) 03/31/25 11:45 Folate 10.6 ng/mL (4.5-32.2) 04/01/25 04:20 Procalcitonin 0.06 ng/mL (0-0.5) 04/01/25 04:20 TSH 1.24 uIU/mL (0.27-4.20) 03/31/25 11:45 Adenovirus (PCR) Not detected (NOT DETECT) 04/02/25 01:37 C. pneumoniae DNA (PCR) Not detected (NOT DETECT) 04/02/25 01:37 Coronavirus 229E (PCR) Not detected (NOT DETECT) 04/02/25 01:37 Human Metapneumovir PCR Not detected (NOT DETECT) 04/02/25 01:37 Influenza A (H1) PCR Not detected (NOT DETECT) 04/02/25 01:37 Influ A (H1/09) PCR Not detected (NOT DETECT) 04/02/25 01:37 Influenza A (H3) PCR Not detected (NOT DETECT) 04/02/25 01:37 Influenza Type A (PCR) Not detected (NOT DETECT) 04/02/25 01:37 Influenza Type B (PCR) Not detected (NOT DETECT) 04/02/25 01:37 M. pneumoniae (PCR) Not detected (NOT DETECT) 04/02/25 01:37 Parainfluenza 1 (PCR) Not detected (NOT DETECT) 04/02/25 01:37 Parainfluenza 2 (PCR) Not detected (NOT DETECT) 04/02/25 01:37 Parainfluenza 3 (PCR) Not detected (NOT DETECT) 04/02/25 01:37 Parainfluenza 4 (PCR) Not detected (NOT DETECT) 04/02/25 01:37 RSV Type A (PCR) Not detected (NOT DETECT) 04/02/25 01:37 RSV Type B (PCR) Not detected (NOT DETECT) 04/02/25 01:37 Entero/Rhino (PCR) Not detected (NOT DETECT) 04/02/25 01:37 SARS-CoV-2 (PCR) Not detected (NOT DETECT) 04/02/25 01:37 Vitals Last Vital Signs Temp 98.8 F 04/03/25 08:30 Pulse 88 04/03/25 08:30 Resp 19 H 04/03/25 08:30 BP 104/63 04/03/25 08:30 Pulse Ox 95 04/03/25 08:30 O2 Del Method Nasal Cannula 04/03/25 08:30 O2 Flow Rate 3 04/03/25 08:30 FiO2 35 04/03/25 04:00 Discharge Plan Discharge Patient Disposition: Home Condition: Stable Prescriptions: New metoprolol tartrate 25 mg Tablet 25 mg PO BID@0900,2100 30 Days Qty: 60 0RF levofloxacin 750 mg tablet 750 mg PO Q24H 7 Days Qty: 7 0RF diltiazem HCl [Cardizem CD] 240 mg capsule,extended release 24hr 240 mg PO DAILY Qty: 90 0RF prednisone 10 mg tablet See Taper PO DIRECTED Qty: 42 0RF Taper: predniSONE 60-10 60 mg Daily for 2 Days and 0 Hour 50 mg Daily for 2 Days and 0 Hour 40 mg Daily for 2 Days and 0 Hour 30 mg Daily for 2 Days and 0 Hour 20 mg Daily for 2 Days and 0 Hour 10 mg Daily for 2 Days and 0 Hour Rx Instructions: see taper instructions levalbuterol tartrate [Xopenex HFA] 45 mcg/actuation HFA aerosol inhaler 1 inh inhalation Q6H PRN (Reason: shortness of breath or wheezing) Qty: 15 0RF Eliquis 5 mg tablet 5 mg PO BID Qty: 60 0RF Continued trazodone 100 mg tablet 250 mg PO DAILY fluoxetine 20 mg capsule 20 mg PO DAILY Rx Instructions: along with 40mg to=60mg total Rexulti 1 mg tablet 1 mg PO DAILY aspirin [Adult Low Dose Aspirin] 81 mg tablet,delayed release (DR/EC) 81 mg PO DAILY Qty: 30 3RF furosemide 20 mg tablet 20 mg PO DAILY Qty: 90 3RF potassium chloride 10 mEq capsule, extended release 10 meq PO DAILY Qty: 90 3RF Breztri Aerosphere 160-9-4.8 mcg/actuation Hfa Aerosol Inhaler 2 inh INHALATION BID fluoxetine 40 mg capsule 40 mg PO DAILY Rx Instructions: along with 20mg to=60mg total clopidogrel 75 mg tablet 75 mg PO DAILY omeprazole 20 mg capsule,delayed release(DR/EC) 20 mg PO QAM fluticasone propionate 50 mcg/actuation spray,suspension 1 spray INTRANASAL CONT budesonide-formoterol 160-4.5 mcg/actuation HFA aerosol inhaler 1 puff INHALATION BID roflumilast 500 mcg tablet 500 mcg PO DAILY Discontinued albuterol sulfate 90 mcg/actuation aerosol powdr breath activated 2 inh inhalation Q4H PRN (Reason: Shortness Of Breath) Discharge Order = DC NOW: Discharge Order (Routine); Ordered 04/03/25 Ordered By: Randy Villalobos Referrals: Kelly Aquino MD [Physician, Cardiology] - 2 weeks Cindy Joseph NP [Primary Care Provider, Nurse Practitioner] Discharge Diet: Cardiac Discharge Activity: Resume usual activity and Increase activity as tolerated Patient Instructions: Metoprolol (By mouth), Diltiazem (By mouth), Prednisone (By mouth), Levofloxacin (By mouth), Levalbuterol (By breathing), Apixaban (By mouth), Heart Healthy Diet, A-fib (Atrial Fibrillation) (DC), Hypertrophic Cardiomyopathy (DC), Opioid Safety, Patient Portal & Le Instructions Discharge Attestations Time Spent in Discharge Care*: greater than 30 min Specific Discharge Activities: educating patient, educating and/or supporting family/caregiver, discussing with pcp/other providers, discussing with manager of case management/social workers/dc planners, documenting/other paperwork and evaluating patient/reviewing data Status at Discharge: Cognitive status at discharge: cognitively intact , Behavioral status at discharge: cooperative , Functional status at discharge: independent ambulation , Overall status at discharge: patient is back to baseline Quality Metrics Clinical Quality Measures [ No reported AMI, CVA or VTE this stay] Coding Level of Care Code 18194 Total time (in minutes) for Discharge: 65 Diagnoses Atrial fibrillation with rapid ventricular response I48.91 Acute on chronic combined systolic and diastolic congestive heart failure I50.43 Heart failure chronicity: acute on chronic Heart failure type: combined systolic and diastolic Non-ischemic cardiomyopathy I42.8 Chronic obstructive pulmonary disease, unspecified COPD type J44.9 COPD type: unspecified COPD Primary hypertension I10 Hypertension type: primary hypertension Shortness of breath R06.02 Peripheral arterial occlusive disease I77.9 Atherosclerotic heart disease of [place] coronary artery with other forms of angina pectoris I25.118
--- NOTE | 2025-04-03 09:41 | PC.NURSE ---
Educated patient against smoking while wearing oxygen at home.
--- NOTE | 2025-04-03 09:47 | P.PN_ITS ---
Subjective 2 Subjective: The patient is feeling much better. The heart rate seems to be under control. He is responding to the beta-cristine appropriately Medications: Medication Review Details: Current Medications Acetaminophen (Acetaminophen 325 Mg Tablet) 650 mg PO Q6H PRN PRN Reason: Mild/Mod Pain Or Temp >/= 101 Budesonide (Budesonide 0.5 Mg/2 Ml Neb) 0.5 mg INHALATION BID.RESPIRATORY [facility] Last Admin: 04/03/25 08:15 Dose: 0.5 mg Ceftriaxone Sodium (Ceftriaxone 1,000 Mg Sdv) 1,000 mg IVP Q24H [facility]; Protocol Last Admin: 04/03/25 01:36 Dose: 1,000 mg Clopidogrel Bisulfate (Clopidogrel 75 Mg Tablet) 75 mg PO DAILY [facility] Last Admin: 04/03/25 05:07 Dose: 75 mg Diltiazem HCl (Diltiazem 30 Mg Tablet) 60 mg PO QID [facility] Last Admin: 04/03/25 05:07 Dose: 60 mg Docusate Sodium (Docusate Sodium 100 Mg Capsule) 100 mg PO BID [facility] Last Admin: 04/03/25 05:07 Dose: 100 mg Enoxaparin Sodium (Enoxaparin 100 Mg/Ml Syringe) 60 mg 1 mg/kg (60 mg) SUBCUT Q12H [facility] Last Admin: 04/03/25 05:06 Dose: 60 mg Famotidine (Famotidine 20 Mg Tablet) 20 mg PO BID [facility] Last Admin: 04/03/25 05:07 Dose: 20 mg Fluticasone Propionate (Fluticasone Nasal [place] 16gm Btl) 1 spray INTRANASAL CONT [facility] Last Admin: 04/02/25 16:19 Dose: 1 spray Furosemide (Furosemide 10 Mg/Ml Sdv 4ml) 40 mg IVP DAILY [facility] Last Admin: 04/03/25 05:08 Dose: 40 mg Azithromycin 500 mg/ Sodium (Chloride) 250 mls @ 250 mls/hr IV Q24H BIENVEN[facility]O; Protocol Last Infusion: 04/03/25 04:34 Dose: Infused Ipratropium Burnett (Ipratropium 0.5 Mg/2.5 Ml Neb) 0.5 mg INHALATION Q4H.RESPIRATORY [facility]O Last Admin: 04/03/25 08:15 Dose: 0.5 mg Lactulose (Lactulose Oral Liq 20 Gm/30 Ml Udc) 10 gm PO DAILY PRN; Protocol PRN Reason: Constipation (see protocol) Levalbuterol HCl (Levalbuterol 0.63 Mg/3 Ml Neb) 0.63 mg INHALATION Q4H.RESPIRATORY PRN PRN Reason: SHORTNESS OF BREATH Last Admin: 04/02/25 02:24 Dose: 0.63 mg Levalbuterol HCl (Levalbuterol 0.63 Mg/3 Ml Neb) 0.63 mg INHALATION Q4H.RESPIRATORY [facility] Last Admin: 04/03/25 08:15 Dose: 0.63 mg Magnesium Hydroxide (Magnesium Hydroxide 30 Ml Udc) 30 ml PO DAILY PRN; Protocol PRN Reason: Constipation (see protocol) Methylprednisolone Sodium Succinate (Methylprednisolone Sod Succ 40 Mg/Ml Inj) 40 mg IVP Q8H [facility] Last Admin: 04/03/25 09:47 Dose: 40 mg Metoclopramide HCl (Metoclopramide 5 Mg/Ml Sdv 2 Ml) 5 mg IVP Q6H PRN PRN Reason: NAUSEA AND VOMITING Last Admin: 04/02/25 10:23 Dose: 5 mg Metoprolol Tartrate (Metoprolol Tartrate 25 Mg Tablet) 25 mg PO BID@0900,2100 [facility] Last Admin: 04/03/25 08:35 Dose: 25 mg Morphine Sulfate (Morphine 4 Mg/Ml Sdv 1 Ml) 2 mg IVP Q4H PRN PRN Reason: SEVERE PAIN Nicotine (Nicotine 21 Mg Patch) 1 patch TRANSDERMA DAILY [facility] Last Admin: 04/03/25 05:07 Dose: 1 patch Non-Formulary Medication (Brexpiprazole [Rexulti]) 1 mg PO DAILY [facility] Last Admin: 04/03/25 05:57 Dose: Not Given Non-Formulary Medication (Mvrczovyno-Scxoeyyg-Jsazosdgik [Breztri Aerosphere]) 2 inh INHALATION BID.RESPIRATORY [facility] Last Admin: 04/02/25 19:56 Dose: 2 inh Ondansetron HCl (Ondansetron 2 Mg/Ml Sdv 2 Ml) 4 mg IVP Q6H PRN PRN Reason: vomiting, or N/V if npo Last Admin: 04/02/25 07:14 Dose: 4 mg Pantoprazole Sodium (Pantoprazole Dr 40 Mg Tablet) 40 mg PO QAM [facility] Last Admin: 04/03/25 05:07 Dose: 40 mg Roflumilast (Roflumilast 500 Mcg Tablet) 500 mcg PO DAILY [facility] Last Admin: 04/03/25 05:07 Dose: 500 mcg Trazodone HCl (Trazodone 100 Mg Tablet) 200 mg PO BEDTIME [facility] Last Admin: 04/02/25 20:10 Dose: 200 mg Vitals/I&O/Wt Last Vital Signs Temp 98.8 F 04/03/25 08:30 Pulse 88 04/03/25 08:30 Resp 19 H 04/03/25 08:30 BP 104/63 04/03/25 08:30 Pulse Ox 95 04/03/25 08:30 O2 Del Method Nasal Cannula 04/03/25 08:30 O2 Flow Rate 3 04/03/25 08:30 FiO2 35 04/03/25 04:00 04/02/25 04/03/25 04/03/25 22:59 06:59 14:59 Intake Total 355 / 1116.443 250 / 1366.443 Output Total 150 / 1050 1500 / 1500 Balance 205 / 66.443 250 / 316.443 -1500 / -1500 Weight last 48 hrs Weight 149 lb 14.629 oz Weight 149 lb 14.629 oz Weight 138 lb 14.259 oz Weight 138 lb 14.259 oz Physical Exam 2 Narrative: GENERAL: The patient is alert and oriented times three. Not in any acute distress. Slightly tachypneic. HEENT: No significant pallor, icterus or lymphadenopathy.Oral cavity: There are no mucous membrane lesions. NECK: Trachea appears to be central. No masses noted. No JVD or thyromegaly appreciated. RESPIRATORY: Chest is symmetrical. No intercostals muscle retraction or any accessory muscle activation. There is no chest wall tenderness. Breath sounds are heard bilaterally. Expiratory wheezing bilaterally. BREASTS: Deferred. HEART: The heart sounds are normal. No S3 or S4. No significant murmurs. No pericardial rub ABDOMEN: No vessel pulsations or distention. No tenderness. No organomegaly appreciated. Bowel sounds are normally heard. : Deferred. RECTAL: Deferred. LYMPHATIC: No lymphadenopathy noted in the neck. EXTREMITIES: Extensive bruising in the upper extremities. Peripheral pulses are weak bilaterally MUSCULOSKELETAL: No acute joint deformities or swelling SKIN: There are no significant rashes or ecchymosis NEUROPSYCHIATRIC: The patient is alert and oriented x3. Appears to be in a good mood. No tremors or rigidity noted. Data 04/03/25 04:35 04/03/25 04:35 Other Labs: Laboratory Last Values WBC 7.00 10^3/uL (3.29-11.43) 04/03/25 04:35 RBC 3.55 10^6/uL (3.85-5.65) L 04/03/25 04:35 Hgb 10.80 g/dL (11.27-16.99) L 04/03/25 04:35 Hct 33.1 % (37-53) L 04/03/25 04:35 MCV 93.2 fl (82-101) 04/03/25 04:35 MCH 30.4 pg (27-33) 04/03/25 04:35 MCHC 32.6 g/dL (30-55) 04/03/25 04:35 RDW 12.0 % (12.1-15.1) L 04/03/25 04:35 Plt Count 180 10^3/cmm (157-399) 04/03/25 04:35 MPV 9.8 fL (7.4-10.4) 04/03/25 04:35 Neut % (Auto) 85.6 % 04/03/25 04:35 Lymph % (Auto) 8.4 % 04/03/25 04:35 [place] % (Auto) 5.3 % 04/03/25 04:35 Eos % (Auto) 0.0 % 04/03/25 04:35 Baso % (Auto) 0.1 % 04/03/25 04:35 Neut # (Auto) 5.99 10^3/uL (1.8-7.7) 04/03/25 04:35 Lymph # (Auto) 0.6 10^3/uL (0.8-4.8) L 04/03/25 04:35 [place] # (Auto) 0.4 10^3/uL (0.2-0.9) 04/03/25 04:35 Eos # (Auto) 0.0 10^3/uL (0.0-0.8) 04/03/25 04:35 Baso # (Auto) 0.0 10^3/uL (0.0-0.1) 04/03/25 04:35 Nucleated RBC % (auto) 0 % 04/03/25 04:35 Nucleated RBCs # 0.0 /100WBC 04/03/25 04:35 PT 12.50 SECONDS (12.1-14.9) 03/31/25 11:45 INR 0.88 (0.8-1.2) 03/31/25 11:45 APTT 26.6 SECONDS (23.9-36.7) 03/31/25 11:45 D-Dimer 1.30 ug/mLFEU (0-0.59) H 03/31/25 19:09 Specimen Type Arterial 04/02/25 00:35 Sample Site Radial, left 04/02/25 00:35 ABG pH 7.37 (7.35-7.45) 04/02/25 00:35 ABG pCO2 60.8 mmHg (35-45) H* 04/02/25 00:35 ABG pO2 76.9 mmHg (80.0-100.0) L 04/02/25 00:35 ABG PO2/FiO2 Ratio 219 04/02/25 00:35 ABG HCO3 35.2 mmol/L (22-26) H 04/02/25 00:35 ABG O2 Saturation 94.8 04/02/25 00:35 ABG Base Excess 7.9 mmol/L (-2.0-2.0) H 04/02/25 00:35 Ananth Test Pos 04/02/25 00:35 A-a O2 Gradient 12.6 mmHg (5-10) H 04/02/25 00:35 Hematocrit 39.0 % (42-52) L 04/02/25 00:35 Hgb O2 Saturation 92.9 % (95-100) L 04/02/25 00:35 Carboxyhemoglobin 0.7 %THgb (0.4-20.1) 04/02/25 00:35 Methemoglobin 1.3 % (0.4-1.5) 04/02/25 00:35 Total Hemoglobin 12.7 g/dL (14-18) L 04/02/25 00:35 Sodium 138.0 mmol/L (131-143) 04/02/25 00:35 Potassium 4.1 mmol/L (3.5-5.0) 04/02/25 00:35 Glucose 197.0 mg/dL (70-115) H 04/02/25 00:35 Ionized Calcium 1.2 mmol/L (1.1-1.4) 04/02/25 00:35 O2 Delivery Device Bipap 04/02/25 00:35 FiO2 35.0 % 04/02/25 00:35 [employer] ID [email or web address] 04/02/25 00:35 Sodium 138 mmol/L (136-145) 04/03/25 04:35 Potassium 4.4 mmol/L (3.5-5.1) 04/03/25 04:35 Chloride 95 mmol/L (98-107) L 04/03/25 04:35 Carbon Dioxide 36 mmol/L (22-29) H 04/03/25 04:35 Anion Gap 11.4 (5-19) 04/03/25 04:35 BUN 27 mg/dL (8-23) H 04/03/25 04:35 Creatinine 0.8 mg/dL (0.7-1.2) 04/03/25 04:35 GFR Calculation 97.3 mL/min (90-130) 04/03/25 04:35 Glucose 146 mg/dL (65-115) H 04/03/25 04:35 Estimat Average Glucose 103 03/31/25 11:45 Hemoglobin A1c 5.2 % (4.0-6.0) 03/31/25 11:45 Calculated Osmolality 294 mOsm/kg (285-295) 04/03/25 04:35 Lactic Acid 0.9 mmol/L (0.5-2.2) 03/31/25 15:56 Calcium 8.8 mg/dL (8.5-10.5) 04/03/25 04:35 Phosphorus 3.6 mg/dL (2.5-4.5) 04/03/25 04:35 Magnesium 2.3 mg/dL (1.7-2.3) 04/03/25 04:35 Iron 87 ug/dL (59-158) 03/31/25 11:45 TIBC 307 mcg/dl 03/31/25 11:45 % Saturation 28.3 % (20-50) 03/31/25 11:45 Unsat Iron Binding 220 ug/dL (112-347) 03/31/25 11:45 Total Bilirubin 0.2 mg/dL (0.15-1.2) 04/03/25 04:35 AST 14 U/L (0-40) 04/03/25 04:35 ALT 35 U/L (0-41) 04/03/25 04:35 Alkaline Phosphatase 73 U/L (40-130) 04/03/25 04:35 Troponin T Baseline 60 ng/L (0-15) H 03/31/25 11:45 Troponin T 120 Minute 59.70 ng/L (0-15) H 03/31/25 13:34 Delta Troponin T -0.30 ABS# (0-10) L 03/31/25 13:34 Troponin T Hi Sens 6Hr 68.13 ng/L (0-15) H 03/31/25 17:58 Troponin T Hi Sens 6Hr Delta 8.13 ng/L (0-12) 03/31/25 17:58 NT-Pro-B Natriuret Pep 1055 pg/mL (0-125) H 03/31/25 11:45 Total Protein 5.9 g/dL (6.6-8.7) L 04/03/25 04:35 Albumin 3.8 g/dL (3.5-5.2) 04/03/25 04:35 Globulin 2.1 g/dL (1.3-4.6) 04/03/25 04:35 Triglycerides 48 mg/dL (0-150) 04/01/25 04:20 Cholesterol 141 mg/dL (0-200) 04/01/25 04:20 LDL Cholesterol, Calc 67 mg/dL (50-129) 04/01/25 04:20 HDL Cholesterol 64 mg/dL (60-100) 04/01/25 04:20 LDL/HDL Ratio 1.05 RATIO (0.00-3.22) 04/01/25 04:20 Cholesterol/HDL Ratio 2.20 mg/dL (1.0-5.00) 04/01/25 04:20 Vitamin B12 378 pg/mL (232-1245) 03/31/25 11:45 Folate 10.6 ng/mL (4.5-32.2) 04/01/25 04:20 Procalcitonin 0.06 ng/mL (0-0.5) 04/01/25 04:20 TSH 1.24 uIU/mL (0.27-4.20) 03/31/25 11:45 Adenovirus (PCR) Not detected (NOT DETECT) 04/02/25 01:37 C. pneumoniae DNA (PCR) Not detected (NOT DETECT) 04/02/25 01:37 Coronavirus 229E (PCR) Not detected (NOT DETECT) 04/02/25 01:37 Human Metapneumovir PCR Not detected (NOT DETECT) 04/02/25 01:37 Influenza A (H1) PCR Not detected (NOT DETECT) 04/02/25 01:37 Influ A (H1/09) PCR Not detected (NOT DETECT) 04/02/25 01:37 Influenza A (H3) PCR Not detected (NOT DETECT) 04/02/25 01:37 Influenza Type A (PCR) Not detected (NOT DETECT) 04/02/25 01:37 Influenza Type B (PCR) Not detected (NOT DETECT) 04/02/25 01:37 M. pneumoniae (PCR) Not detected (NOT DETECT) 04/02/25 01:37 Parainfluenza 1 (PCR) Not detected (NOT DETECT) 04/02/25 01:37 Parainfluenza 2 (PCR) Not detected (NOT DETECT) 04/02/25 01:37 Parainfluenza 3 (PCR) Not detected (NOT DETECT) 04/02/25 01:37 Parainfluenza 4 (PCR) Not detected (NOT DETECT) 04/02/25 01:37 RSV Type A (PCR) Not detected (NOT DETECT) 04/02/25 01:37 RSV Type B (PCR) Not detected (NOT DETECT) 04/02/25 01:37 Entero/Rhino (PCR) Not detected (NOT DETECT) 04/02/25 01:37 SARS-CoV-2 (PCR) Not detected (NOT DETECT) 04/02/25 01:37 A&P Assessment and plan 1. Atrial fibrillation with rapid ventricular response: Patient responded to the combination of her calcium channel cristine and beta- cristine. May be continued on the current medication. Agree with Eliquis and discontinue the aspirin. Watch for any bleeding complications 2. Atherosclerotic heart disease of [place] coronary artery with other forms of angina pectoris: Since the patient has no evidence of ischemia, based on the perfusion scan, he may not require any further intervention at this point. May continue the current measures. 3. Non-ischemic cardiomyopathy: In view of the LV dysfunction, I may start him on a low-dose of ARB namely losartan 25 mg p.o. daily. We may consider switching to Entresto later on. 4. Acute on chronic combined systolic and diastolic congestive heart failure: May be started on p.o. Lasix 5. Primary hypertension: Continue on the above medications. The blood pressure needs to be closely monitored. 6. Chronic obstructive pulmonary disease, unspecified COPD type: Patient is once again strongly advised to quit smoking. Cardiovascular implications were discussed with the patient. Plan: Discontinue aspirin May continue the Plavix and Eliquis Closely monitor for any bleeding complications Appointment the [facility] in 2 weeks to be seen by the nurse practitioner Appoint with Dr. Mcgovern as scheduled PDMP PDMP Reviewed: Not Reviewed Attestations 2 Medical Necessity Statement*: Discharge home today Coding Level of Care Code Acute Code for [facility] Fwd Diagnoses Atrial fibrillation with rapid ventricular response I48.91 Atherosclerotic heart disease of [place] coronary artery with other forms of angina pectoris I25.118 Non-ischemic cardiomyopathy I42.8 Acute on chronic combined systolic and diastolic congestive heart failure I50.43 Heart failure chronicity: acute on chronic Heart failure type: combined systolic and diastolic Primary hypertension I10 Hypertension type: primary hypertension Chronic obstructive pulmonary disease, unspecified COPD type J44.9 COPD type: unspecified COPD
--- NOTE | 2025-04-03 09:59 | P.PN_ITS ---
Subjective 2 Subjective: Overnight patient had episode of difficulty in breathing for which she was moved to ICU for COPD exacerbation and had remained on BiPAP. Currently on 3 L. Patient states he is feeling a lot better. Denies any nausea, vomiting, headache. Continues to be in A-fib with RVR. Seen with caregiver at bedside. Vitals/I&O/Wt Last Vital Signs Temp 98.8 F 04/03/25 08:30 Pulse 88 04/03/25 08:30 Resp 19 H 04/03/25 08:30 BP 104/63 04/03/25 08:30 Pulse Ox 95 04/03/25 08:30 O2 Del Method Nasal Cannula 04/03/25 08:30 O2 Flow Rate 3 04/03/25 08:30 FiO2 35 04/03/25 04:00 04/02/25 04/03/25 04/03/25 22:59 06:59 14:59 Intake Total 355 / 1116.443 250 / 1366.443 Output Total 150 / 1050 1500 / 1500 Balance 205 / 66.443 250 / 316.443 -1500 / -1500 Weight last 48 hrs Weight 68 kg Weight 68 kg Weight 63 kg Weight 63 kg Physical Exam 2 Narrative: General: No acute distress, AO x3 HEENT: PERRLA, pupils bilaterally equal and reactive Chest: Bilateral bronchial breath sounds all over lung zamorano occasional rhonchi CVS: S1-S2 irregularly irregular, no murmurs, tachycardia, no gallops, no rubs Abdomen: Soft, nontender, no organomegaly, bowel sounds present Neuro: No focal deficits, no facial deformity, AO x3, power 5/5 in all limbs Data 04/03/25 04:35 04/03/25 04:35 A&P Assessment and plan 1. Atrial fibrillation with rapid ventricular response: Appreciate thyroid panel. Heart rate still elevated but most likely in setting of baseline severe COPD. Switch amiodarone drip to 400 mg twice daily. Completed digoxin load last night. Continue with Cardizem 60 mg Q6 hourly. Will consult cardiology further recommendations. May consider adding low-dose beta-cristine. Appreciate echocardiogram showing systolic and diastolic heart failure. Continue with full dose Lovenox 1 mg/kg body weight every 12 hourly. 2. Acute on chronic combined systolic and diastolic congestive heart failure: High likelihood of nonischemic cardiomyopathy. Appreciate cardiac stress test being negative for acute ischemia. Echocardiogram appreciated. Continue with IV Lasix 40 mg daily. Will plan to add ARB depending on blood pressure in next 24 hours. 3. Non-ischemic cardiomyopathy: 4. Chronic obstructive pulmonary disease, unspecified COPD type: Pulmicort twice daily, ipratropium, Xopenex every 6 hour. Start home inhaler. Solu-Medrol 40 mg Q6 hourly. Oxygen supplementation keeping saturation over 90%. Chronic smoker. Discussed in detail regarding importance of cessation of smoking. Nicotine patch. 5. Primary hypertension: Goal blood pressure less than 140/90 mmHg. Blood pressure stable for now. Hold off on any other antihypertensive. 6. Shortness of breath: Most likely in setting of COPD exacerbation and CHF 7. Peripheral arterial occlusive disease: Patient takes aspirin and Plavix currently. Though as per charting he should be on aspirin, cilostazol. For now we will continue with aspirin and Plavix. Appreciate A1c, lipid panel. 8. Atherosclerotic heart disease of [place] coronary artery with other forms of angina pectoris: Plan: Shortness of breath: Most likely in setting of COPD exacerbation and congestive heart failure. Fluid restriction to less than 1500 cc. Lasix as per fluid status daily. Strict input output charting, daily weights. Nebulization and steroid as above. Full code Cardiac diet Famotidine for PUD prophylaxis Full dose Lovenox for suppression for DVT prophylaxis PDMP PDMP Reviewed: Not Reviewed Attestations 2 Medical Necessity Statement*: Requires further hospitalization for management of A-fib with RVR, COPD exacerbation, congestive heart failure Coding Level of Care Code 02588 Diagnoses Atrial fibrillation with rapid ventricular response I48.91 Acute on chronic combined systolic and diastolic congestive heart failure I50.43 Heart failure type: combined systolic and diastolic Heart failure chronicity: acute on chronic Non-ischemic cardiomyopathy I42.8 Chronic obstructive pulmonary disease, unspecified COPD type J44.9 COPD type: unspecified COPD Primary hypertension I10 Hypertension type: primary hypertension Shortness of breath R06.02 Peripheral arterial occlusive disease I77.9 Atherosclerotic heart disease of [place] coronary artery with other forms of angina pectoris I25.118
--- NOTE | 2025-04-03 12:15 | PC.NURSE ---
Delay in D/C due to patient charging his portable home O2 and his ride home is in [facility].
--- NOTE | 2025-04-03 13:49 | PC.NURSE ---
Verbal and written education provided to patient regarding new, continued and stopped medications, follow up appointments, S/S of when to seek medical care. Patient Verbalized understanding of all teachings. Patient brought via wheelchair to personal vehicle. All patient belongings sent with patient.
--- NOTE | 2025-04-03 19:08 | PC.NURSE ---
called pt at home and verified he is not to take asprin per dr padilla witness per abdi amezquita
== END 2025-04-03 13:51 | disposition home health service (06) | DRG 308 ==
LOC: ER 13:29 → ER IP 14:10 → ICU 15:56 → CSU 04-01 16:27 → ICU 04-02 01:26
PROVIDERS: Student in an Organized Health Care Education/Training Program; Admitting Provider Student in an Organized Health Care Education/Training Program; Emergency Provider Student in an Organized Health Care Education/Training Program; PCP Nurse Practitioner Family; Visit Provider Student in an Organized Health Care Education/Training Program
DX: I48.91 Unspecified atrial fibrillation (principal); I50.43 Acute on chronic combined systolic (congestive) and diastolic (congestive) heart failure; J96.90 Respiratory failure, unspecified, unspecified whether with hypoxia or hypercapnia; J44.1 Chronic obstructive pulmonary disease with (acute) exacerbation; I42.8 Other cardiomyopathies; I11.0 Hypertensive heart disease with heart failure; G47.00 Insomnia, unspecified; I73.9 Peripheral vascular disease, unspecified; I25.10 Atherosclerotic heart disease of native coronary artery without angina pectoris; F17.210 Nicotine dependence, cigarettes, uncomplicated; F10.10 Alcohol abuse, uncomplicated; F32.A Depression, unspecified; F41.9 Anxiety disorder, unspecified; Z79.82 Long term (current) use of aspirin; Z79.51 Long term (current) use of inhaled steroids; Z79.899 Other long term (current) drug therapy; Z79.02 Long term (current) use of antithrombotics/antiplatelets; Z86.718 Personal history of other venous thrombosis and embolism
CPT/HCPCS: 36415; 36600; 71045; 78452; 80048; 80051; 80053; 80061; 82330; 82607; 82746; 82805; 83036; 83540; 83550; 83605; 83735; 83880; 84100; 84145; 84443; 84484; 85025; 85378; 85610; 85730; 87040; 87086; 87486; 87581; 87633; 93005; 93017; 93306; 94640; 94660; 94664; 96365; 96366; 96372; 96375; 99285; A4222; A9500; J0282; J0283; J0456; J0696; J1160; J1650; J1938; J2405; J2765; J2785; J2919; J3490; J7050; J7614; J7626; J7644; J9999

== ENCOUNTER 2025-04-08 12:00 | Emergency (ER) | payer MEDICARE, SELFPAY ==
[2025-04-08 12:01] VITALS: BP 101/57; PULSE 81; RESP 18; TEMP 36.7; O2SAT 94; BMI 20.8
--- NOTE | 2025-04-08 12:10 | ECG_ITS ---
[facility] Date: 2025-04-08 Pat Name: Darren Foley Department: Room: Gender: Male Board Member: : [id number] Requested By: Matthew Juarez Order Number: [id number] Maldonado MD: Adolfo Mcgovern M.D. Measurements Intervals [place] Rate: 80 P: 0 NH: 0 QRS: 59 QRSD: 94 T: 63 QT: 391 QTc: 454 Interpretive Statements ATRIAL FIBRILLATION INCOMPLETE RIGHT BUNDLE BRANCH BLOCK [90+ ms QRS DURATION, TERMINAL R IN V1/V2, 40+ ms S IN I/aVL/V4/V5/V6] Compared to ECG 03/31/2025 17:22:54 Incomplete right bundle-branch block now present Electronically Signed On 04-08-2025 13:14:16 LITIGATION ASSISTANT by Adolfo Mcgovern M.D. [id number]
--- NOTE | 2025-04-08 12:10 | XR_ITS ---
WS: [id number] Exam: XR chest 1V portable [id number] Date/Time of Exam: 04/08/2025 12:10 PM Reason For Exam: sob Comparison 04/02/2025. Questionable new 1 cm infrahilar RIGHT pulmonary nodule. No infiltrates. Lungs are hyperinflated. Normal cardiomediastinal silhouette. No pleural effusions. Bony structures are intact. Recommendations: A nonemergent detailed PA and lateral chest x-ray would be recommended for follow-up. Chest CT may ultimately be necessary. XR/XR chest 1V portable [id number] IMPRESSION: 1. Questionable new 1 cm RIGHT infrahilar pulmonary nodule. 2. Pulmonary hyperinflation. No acute infiltrates.
--- NOTE | 2025-04-08 12:13 | ED_ITS ---
Documented by User: EVY Virk 04/08/25 13:35 HPI - SOB/Dyspnea 2 General: Chief Complaint: Shortness of Breath/Dyspnea Stated Complaint: low o2 , high hr Time Seen by Provider: 04/08/25 12:01 Source: patient, EMS and old records reviewed Mode of arrival: EMS Limitations: no limitations History of Present Illness: HPI Narrative: Patient is a 65-year-old male with past medical history of atrial fibrillation with RVR, acute on chronic systolic and diastolic congestive heart failure, cardiomyopathy, COPD, hypertension, and peripheral artery disease presented to the Emergency Department by ambulance for reports of abnormal vitals from home health. Patient was recently in the hospital last week, was discharged on 03/31 after being admitted for A-fib with RVR. He was diagnosed on metoprolol and Cardizem, patient states that he has still had shortness of breath since discharge but it overall has been improving. He also states he smokes marijuana and that this might be contributing to his continued shortness of breath as well as his coughing but otherwise has no new chest pain or other complaints. No fevers at home. No new weakness or worsening peripheral edema than normal. In the hospital he had full cardiac workup including echocardiogram and stress test. He chronically is on 3 L of oxygen, home health had noted that he required 5 L of oxygen to maintain above 90% however at this time he is on 2 L of oxygen and 100% SpO2. Also was noted that his heart rate was in the 120s with home health, here it has been 70 to 80 bpm. Essentially he has no new complaints, vitals are stable at this time overall chronically ill-appearing however nontoxic. MD elicited complaint: shortness of breath Pertinent past history: COPD and congestive heart failure Timing: improved Severity: similar to previous episodes Known history of: COPD and congestive heart failure Associated symptoms: Deny abdominal pain, chest pain, fever(s), lightheadedness, nausea, palpitations or vomiting Related Data Home Medications ?Medication ?Instructions ?Recorded ?Confirmed trazodone 100 mg tablet 250 mg PO DAILY 04/03/22 brexpiprazole 1 mg tablet (Rexulti) 1 mg PO DAILY 05/2704/08/25 fluoxetine 20 mg capsule 20 mg PO DAILY 06/23/2303/26 budesonide 160 mcg-glycopyr 9 2 inh inhalation BID 04/08/25 mcg-formot 4.8 mcg/actuation HFA inhaler (Breztri Aerosphere) budesonide-formoterol HFA 160 1 puff inhalation BID 04/08/25 mcg-4.5 mcg/actuation aerosol inhaler (Breyna) clopidogrel 75 mg tablet 75 mg PO DAILY 03/31/2503/26 fluoxetine 40 mg capsule 40 mg PO DAILY 03/31/2503/26 fluticasone propionate 50 1 spray intranasal CONT 11/1704/08/25 mcg/actuation nasal spray,suspension omeprazole 20 mg capsule,delayed 20 mg PO QAM 03/31/25 04/08/25 release roflumilast 500 mcg tablet 500 mcg PO DAILY 03/31/2506/08/24 Previous Rx's ?Medication ?Instructions ?Recorded furosemide 20 mg tablet 20 mg PO DAILY #90 tabs 08/16 potassium chloride 10 mEq 10 meq PO DAILY #90 caps 08/16 capsule,extended release apixaban 5 mg tablet (Eliquis) 5 mg PO BID #60 tabs diltiazem HCl 240 mg 240 mg PO DAILY #90 caps 02/17 capsule,extended release 24 hr (Cardizem CD) levalbuterol tartrate 45 1 inh inhalation Q6H PRN melissa rtness 04/03/25 mcg/actuation aerosol inhaler of breath or wheezing #1 5 grams (Xopenex HFA) levofloxacin 750 mg tablet 750 mg PO Q24H 7 days #7 ta bs 04/03/25 metoprolol tartrate 25 mg tablet 25 mg PO BID@0900,210 0 30 days #60 04/03/25 tabs prednisone 10 mg tablet See Taper PO DIRECTED #42 tabs 04/03/25 Allergies Allergy/AdvReac Type Severity Reaction Status Date / Time No Known Drug Allergies Allergy Unknown Verified 01/21/24 08:27 Review of Systems 2 General: Reports: 10 or more systems reviewed and unremarkable except in HPI and below Const: Denies: fever(s), chills or fatigue Eyes: Denies: change in vision ENMT: Denies: throat pain, ear or mastoid pain or nasal discharge Card: Denies: chest pain, palpitations, swelling of feet/ankles or lightheadedness Resp: Reports: dyspnea and non-productive cough; Denies: productive cough or wheezing GI: Denies: abdominal pain, nausea, vomiting, diarrhea or constipation : Denies: flank pain, difficulty urinating, dysuria or urinary frequency Musc: Denies: neck pain, back pain or joint pain Skin/Breast: Denies: rash Neuro: Denies: headache(s), numbness in extremities or weakness in extremities PFSH ED 2 PFSH: Medical History Primary hypertension Anxiety Atrial fibrillation Chest pain Chronic obstructive pulmonary disease, unspecified COPD type Cigarette nicotine dependence Atherosclerosis Pre-syncope Dizziness Insomnia Shortness of breath Depression Fatigue Social History Smoking and tobacco/nicotine status: current every day tobacco/nicotine user Physical Exam 2 Const: COMMON NORMALS: no acute distress, patient oriented x3 and alert G ENERAL APPEARANCE: cooperative and ill appearing ORIENTATION/CONSCIOUSNESS: Y es awake OTHER: nontoxic HENMT: COMMON NORMALS: normocephalic and atraumatic HEAD & SCALP: n ormocephalic and atraumatic Eye: COMMON NORMALS: Equal, round and reactive pupils present, EOMs intact bilaterally and conjunctivae normal CONJUNCTIVA: Yes conjunctivae normal P UPIL: Yes Equal, round and reactive pupils present Neck/C-Spine: COMMON NORMALS: full ROM Chest: COMMONS NORMALS: normal inspection of the chest Resp: COMMON NORMALS: normal respiratory effort, No retractions and No use of accessory muscles AUSCULTATION: wheezes expiratory wheezes, inspiratory wheezes and throughout Cardio: COMMON NORMALS: regular rate RATE: regular rate RHYTHM: abnormal rhythm irregularly irregular GI: COMMON NORMALS: Soft to palpation and non-tender PALPATION: Yes Soft to palpation Extremity: NARRATIVE EXTREMITY EXAM: 2+ pitting edema bilateral lower extremi ties Neuro: COMMON NORMALS: patient oriented x3, moves all extremities, no focal motor deficits and no sensory deficits noted SENSORIUM/ORIENTATION: Yes alert Skin: COMMON NORMALS: no rashes or lesions noted GENERAL SKIN EXAM: no rashes or lesions noted Course 2 Vital Signs: Vital signs: Vital Signs Temperature 98.1 F 04/08/25 12:01 Pulse Rate 70 11/14/25 13:52 Respiratory Rate 16 04/08/25 13:52 Blood Pressure 108/61 04/08/25 13:52 Pulse Oximetry 99 04/08/25 13:52 Oxygen Delivery Me thod Room Air 04/08/25 12:46 Oxygen Flow Rate 2 04/08/25 12:01 MDM - SOB/Dyspnea Medical Decision Making Patient was in by ambulance for reportedly abnormal vitals at home by home health. It was reported that his oxygen saturation was less than 80 on his chronic 3 L of oxygen, and his heart rate was in the 120s. However on arrival here, and with EMS, his oxygen has actually been greater than 95% on 2 L of oxygen, and heart rate has been 70 to 80 bpm. Also he has no complaints here, recently was hospitalized where he had full cardiac workup and ultimately was treated for A-fib with RVR, he has been taking medications including prednisone which would explain his mild leukocytosis. Otherwise rest of his labs are in stable condition, specifically his BNP. EKG showing A-fib. Chest x-ray showing no focal consolidation to indicate any pneumonia or other infectious process. He is evaluated here in the emergency department for prolonged period time and has been stable with no complaints, and requesting to go home after informed of his normal workup. He will be allowed discharge, told to return with any worsening or shortness of breath or any other symptoms, to which he verbalizes understanding. Lab Data 04/08/25 12:28 04/08/25 12:28 Labs/Radiology: Radiology Impressions Chest X-Ray 04/08/25 12:10 IMPRESSION: 1. Questionable new 1 cm RIGHT infrahilar pulmonary nodule. 2. Pulmonary hyperinflation. No acute infiltrates. Laboratory Results WBC 13.67 10^3/uL (3.29-11.43) H 04/08/25 12:28 RBC 3.73 10^6/uL (3.85-5.65) L 04/08/25 12:28 Hgb 11.40 g/dL (11.27-16.99) 04/08/25 12:28 Hct 35.5 % (37-53) L 04/08/25 12:28 MCV 95.2 fl (82-101) 04/08/25 12:28 MCH 30.6 pg (27-33) 04/08/25 12:28 MCHC 32.1 g/dL (30-55) 04/08/25 12: RDW 12.1 % (12.1-15.1) 04/08/25 12: Plt Count 247 10^3/cmm (157-399) 04/08/25 12:28 MPV 9.5 fL (7.4-10.4) 04/08/25 12: Neut % (Auto) 84.9 % 04/08/25 12:28 Lymph % (Auto) 5.6 % 04/08/25 12:28 Blanco % (Auto) 6.7 % 04/08/25 12: Eos % (Auto) 0.4 % 04/08/25 12: Baso % (Auto) 0.1 % 04/08/25 12: Neut # (Auto) 11.60 10^3/uL (1.8-7.7) H 04/08/25 12: Lymph # (Auto) 0.8 10^3/uL (0.8-4.8) 04/08/25 12:28 Blanco # (Auto) 0.9 10^3/uL (0.2-0.9) 04/08/25 12: Eos # (Auto) 0.1 10^3/uL (0.0-0.8) 04/08/25 12:28 Baso # (Auto) 0.0 10^3/uL (0.0-0.1) 04/08/25 12: Nucleated RBC % (auto) 0 % 04/08/25 12: Nucleated RBCs # 0.0 /100WBC 04/08/25 12:28 Sodium 143 mmol/L (136-145) 04/08/25 12:28 Potassium 4.2 mmol/L (3.5-5.1) 04/08/25 12:28 Chloride 103 mmol/L (98-107) 04/08/25 12:28 Carbon Dioxide 36 mmol/L (22-29) H 04/08/25 12:28 Anion Gap 8.2 (5-19) 04/08/25 12:28 BUN 27 mg/dL (8-23) H 04/08/25 12:28 Creatinine 0.8 mg/dL (0.7-1.2) 04/08/25 12:28 GFR Calculation 97.3 mL/min (90-130) 04/08/25 12:28 Glucose 155 mg/dL (65-115) H 04/08/25 12:28 Calculated Osmolality 304 mOsm/kg (285-295) H 04/08/25 12:28 Calcium 8.4 mg/dL (8.5-10.5) L 04/08/25 12:28 Total Bilirubin 0.3 mg/dL (0.15-1.2) 04/08/25 12:28 AST 18 U/L (0-40) 04/08/25 12:28 ALT 46 U/L (0-41) H 04/08/25 12:28 Alkaline Phosphatase 63 U/L (40-130) 04/08/25 12:28 NT-Pro-B Natriuret Pep 935 pg/mL (0-125) H 04/08/25 12:28 Total Protein 5.3 g/dL (6.6-8.7) L 04/08/25 12:28 Albumin 3.3 g/dL (3.5-5.2) L 04/08/25 12:28 Globulin 2.0 g/dL (1.3-4.6) 04/08/25 12:28 Influenza A (PCR) Negative (Negative) 04/08/25 12:46 Influenza Type B (PCR) Negative (Negative) 04/08/25 12:46 RSV (PCR) Negative (Negative) 04/08/25 12:46 SARS-CoV-2 (PCR) Negative (Negative) 04/08/25 12:46 All radiology interpretation(s) finalized by discharge Discharge Plan Discharge Patient Disposition: Home Clinical Impression: Shortness of breath Condition: Stable Prescriptions: No Action trazodone 100 mg tablet 250 mg PO DAILY fluoxetine 20 mg capsule 20 mg PO DAILY Rx Instructions: along with 40mg to=60mg total Rexulti 1 mg tablet 1 mg PO DAILY furosemide 20 mg tablet 20 mg PO DAILY Qty: 90 3RF potassium chloride 10 mEq capsule, extended release 10 meq PO DAILY Qty: 90 3RF Breztri Aerosphere 160-9-4.8 mcg/actuation Hfa Aerosol Inhaler 2 inh INHALATION BID fluoxetine 40 mg capsule 40 mg PO DAILY Rx Instructions: along with 20mg to=60mg total clopidogrel 75 mg tablet 75 mg PO DAILY omeprazole 20 mg capsule,delayed release(DR/EC) 20 mg PO QAM fluticasone propionate 50 mcg/actuation spray,suspension 1 spray INTRANASAL CONT budesonide-formoterol [Breyna] 160-4.5 mcg/actuation HFA aerosol inhaler 1 puff INHALATION BID roflumilast 500 mcg tablet 500 mcg PO DAILY metoprolol tartrate 25 mg Tablet 25 mg PO BID@0900,2100 30 Days Qty: 60 0RF levofloxacin 750 mg tablet 750 mg PO Q24H 7 Days Qty: 7 0RF diltiazem HCl [Cardizem CD] 240 mg capsule,extended release 24hr 240 mg PO DAILY Qty: 90 0RF prednisone 10 mg tablet See Taper PO DIRECTED Qty: 42 0RF Taper: predniSONE 60-10 60 mg Daily for 2 Days and 0 Hour 50 mg Daily for 2 Days and 0 Hour 40 mg Daily for 2 Days and 0 Hour 30 mg Daily for 2 Days and 0 Hour 20 mg Daily for 2 Days and 0 Hour 10 mg Daily for 2 Days and 0 Hour Rx Instructions: see taper instructions levalbuterol tartrate [Xopenex HFA] 45 mcg/actuation HFA aerosol inhaler 1 inh inhalation Q6H PRN (Reason: shortness of breath or wheezing) Qty: 15 0RF Eliquis 5 mg tablet 5 mg PO BID Qty: 60 0RF Discharge Orders: Discharge ED (Routine); Ordered 04/08/25 Ordered By: Matthew Zhang Referrals: Cindy Joseph, IMPORT CLERK [Primary Care Provider, Nurse Practitioner] Patient Instructions: Patient Portal & Le Instructions Activity Restrictions/Additional Instructions: Continue taking home medications. Continue monitoring vitals at home specifically your oxygen and heart rate. Please follow-up with primary care as already planned, return with any new or worsening. Print Language: Nepalese Coding Level of Care Code ED Supervisory Geographer for Chg Fwd Documented by User: Wili Luis DO 04/09/25 13:53 HPI - SOB/Dyspnea 2 General: Chief Complaint: Shortness of Breath/Dyspnea Stated Complaint: low o2 , high hr Time Seen by Provider: 04/08/25 12:01 Related Data Home Medications ?Medication ?Instructions ?Recorded ?Confirmed trazodone 100 mg tablet 250 mg PO DAILY 04/03/22 brexpiprazole 1 mg tablet (Rexulti) 1 mg PO DAILY 05/2704/08/25 fluoxetine 20 mg capsule 20 mg PO DAILY 06/23/2303/26 budesonide 160 mcg-glycopyr 9 2 inh inhalation BID 04/08/25 mcg-formot 4.8 mcg/actuation HFA inhaler ([employer]) budesonide-formoterol HFA 160 1 puff inhalation BID 04/08/25 mcg-4.5 mcg/actuation aerosol inhaler (Breyna) clopidogrel 75 mg tablet 75 mg PO DAILY 03/31/2503/26 fluoxetine 40 mg capsule 40 mg PO DAILY 03/31/2503/26 fluticasone propionate 50 1 spray intranasal CONT 11/1704/08/25 mcg/actuation nasal spray,suspension omeprazole 20 mg capsule,delayed 20 mg PO QAM 03/31/25 04/08/25 release roflumilast 500 mcg tablet 500 mcg PO DAILY 03/31/2506/08/24 Previous Rx's ?Medication ?Instructions ?Recorded furosemide 20 mg tablet 20 mg PO DAILY #90 tabs 08/16 potassium chloride 10 mEq 10 meq PO DAILY #90 caps 08/16 capsule,extended release apixaban 5 mg tablet (Eliquis) 5 mg PO BID #60 tabs diltiazem HCl 240 mg 240 mg PO DAILY #90 caps 02/17 capsule,extended release 24 hr (Cardizem CD) levalbuterol tartrate 45 1 inh inhalation Q6H PRN melissa rtness 04/03/25 mcg/actuation aerosol inhaler of breath or wheezing #1 5 grams (Xopenex HFA) levofloxacin 750 mg tablet 750 mg PO Q24H 7 days #7 ta bs 04/03/25 metoprolol tartrate 25 mg tablet 25 mg PO BID@0900,210 0 30 days #60 04/03/25 tabs prednisone 10 mg tablet See Taper PO DIRECTED #42 tabs 04/03/25 Allergies Allergy/AdvReac Type Severity Reaction Status Date / Time No Known Drug Allergies Allergy Unknown Verified 01/21/24 08:27 [facility] ED 2 [facility]: Medical History Primary hypertension Anxiety Atrial fibrillation Chest pain Chronic obstructive pulmonary disease, unspecified COPD type Cigarette nicotine dependence Atherosclerosis Pre-syncope Dizziness Insomnia Shortness of breath Depression Fatigue Social History Smoking and tobacco/nicotine status: current every day tobacco/nicotine user Course 2 Vital Signs: Vital signs: Vital Signs Temperature 98.1 F 04/08/25 12:01 Pulse Rate 70 04/08/25 13:52 Respiratory Rate 16 04/08/25 13:52 Blood Pressure 108/61 04/08/25 13:52 Pulse Oximetry 99 04/08/25 13:52 Oxygen Delivery Me thod Room Air 04/08/25 12:46 Oxygen Flow Rate 2 04/08/25 12:01 MDM - SOB/Dyspnea Medical Decision Making Patient was in by ambulance for reportedly abnormal vitals at home by home health. It was reported that his oxygen saturation was less than 80 on his chronic 3 L of oxygen, and his heart rate was in the 120s. However on arrival here, and with EMS, his oxygen has actually been greater than 95% on 2 L of oxygen, and heart rate has been 70 to 80 bpm. Also he has no complaints here, recently was hospitalized where he had full cardiac workup and ultimately was treated for A-fib with RVR, he has been taking medications including prednisone which would explain his mild leukocytosis. Otherwise rest of his labs are in stable condition, specifically his BNP. EKG showing A-fib. Chest x-ray showing no focal consolidation to indicate any pneumonia or other infectious process. He is evaluated here in the emergency department for prolonged period time and has been stable with no complaints, and requesting to go home after informed of his normal workup. He will be allowed discharge, told to return with any worsening or shortness of breath or any other symptoms, to which he verbalizes understanding. Chart reviewed Lab Data 04/08/25 12:28 04/08/25 12:28 Labs/Radiology: Radiology Impressions Chest X-Ray 04/08/25 12:10 IMPRESSION: 1. Questionable new 1 cm RIGHT infrahilar pulmonary nodule. 2. Pulmonary hyperinflation. No acute infiltrates. Laboratory Results WBC 13.67 10^3/uL (3.29-11.43) H 04/08/25 12:28 RBC 3.73 10^6/uL (3.85-5.65) L 04/08/25 12:28 Hgb 11.40 g/dL (11.27-16.99) 04/08/25 12:28 Hct 35.5 % (37-53) L 04/08/25 12:28 MCV 95.2 fl (82-101) 04/08/25 12:28 MCH 30.6 pg (27-33) 04/08/25 12:28 MCHC 32.1 g/dL (30-55) 04/08/25 12:28 RDW 12.1 % (12.1-15.1) 04/08/25 12:28 Plt Count 247 10^3/cmm (157-399) 04/08/25 12:28 MPV 9.5 fL (7.4-10.4) 04/08/25 12: Neut % (Auto) 84.9 % 04/08/25 12:28 Lymph % (Auto) 5.6 % 04/08/25 12:28 Blanco % (Auto) 6.7 % 04/08/25 12:28 Eos % (Auto) 0.4 % 04/08/25 12:28 Baso % (Auto) 0.1 % 04/08/25 12:28 Neut # (Auto) 11.60 10^3/uL (1.8-7.7) H 04/08/25 12:28 Lymph # (Auto) 0.8 10^3/uL (0.8-4.8) 04/08/25 12:28 Blanco # (Auto) 0.9 10^3/uL (0.2-0.9) 04/08/25 12:28 Eos # (Auto) 0.1 10^3/uL (0.0-0.8) 04/08/25 12:28 Baso # (Auto) 0.0 10^3/uL (0.0-0.1) 04/08/25 12:28 Nucleated RBC % (auto) 0 % 04/08/25 12:28 Nucleated RBCs # 0.0 /100WBC 04/08/25 12:28 Sodium 143 mmol/L (136-145) 04/08/25 12:28 Potassium 4.2 mmol/L (3.5-5.1) 04/08/25 12:28 Chloride 103 mmol/L (98-107) 04/08/25 12:28 Carbon Dioxide 36 mmol/L (22-29) H 04/08/25 12:28 Anion Gap 8.2 (5-19) 04/08/25 12:28 BUN 27 mg/dL (8-23) H 04/08/25 12:28 Creatinine 0.8 mg/dL (0.7-1.2) 04/08/25 12:28 GFR Calculation 97.3 mL/min (90-130) 04/08/25 12:28 Glucose 155 mg/dL (65-115) H 04/08/25 12:28 Calculated Osmolality 304 mOsm/kg (285-295) H 04/08/25 12:28 Calcium 8.4 mg/dL (8.5-10.5) L 04/08/25 12:28 Total Bilirubin 0.3 mg/dL (0.15-1.2) 04/08/25 12:28 AST 18 U/L (0-40) 04/08/25 12:28 ALT 46 U/L (0-41) H 04/08/25 12:28 Alkaline Phosphatase 63 U/L (40-130) 04/08/25 12:28 NT-Pro-B Natriuret Pep 935 pg/mL (0-125) H 04/08/25 12:28 Total Protein 5.3 g/dL (6.6-8.7) L 04/08/25 12:28 Albumin 3.3 g/dL (3.5-5.2) L 04/08/25 12:28 Globulin 2.0 g/dL (1.3-4.6) 04/08/25 12:28 Influenza A (PCR) Negative (Negative) 04/08/25 12:46 Influenza Type B (PCR) Negative (Negative) 04/08/25 12:46 RSV (PCR) Negative (Negative) 04/08/25 12:46 SARS-CoV-2 (PCR) Negative (Negative) 04/08/25 12:46 Discharge Plan Discharge Patient Disposition: Home Clinical Impression: Shortness of breath Condition: Stable Prescriptions: No Action trazodone 100 mg tablet 250 mg PO DAILY fluoxetine 20 mg capsule 20 mg PO DAILY Rx Instructions: along with 40mg to=60mg total Rexulti 1 mg tablet 1 mg PO DAILY furosemide 20 mg tablet 20 mg PO DAILY Qty: 90 3RF potassium chloride 10 mEq capsule, extended release 10 meq PO DAILY Qty: 90 3RF Breztri Aerosphere 160-9-4.8 mcg/actuation Hfa Aerosol Inhaler 2 inh INHALATION BID fluoxetine 40 mg capsule 40 mg PO DAILY Rx Instructions: along with 20mg to=60mg total clopidogrel 75 mg tablet 75 mg PO DAILY omeprazole 20 mg capsule,delayed release(DR/EC) 20 mg PO QAM fluticasone propionate 50 mcg/actuation spray,suspension 1 spray INTRANASAL CONT budesonide-formoterol [Breyna] 160-4.5 mcg/actuation HFA aerosol inhaler 1 puff INHALATION BID roflumilast 500 mcg tablet 500 mcg PO DAILY metoprolol tartrate 25 mg Tablet 25 mg PO BID@0900,2100 30 Days Qty: 60 0RF levofloxacin 750 mg tablet 750 mg PO Q24H 7 Days Qty: 7 0RF diltiazem HCl [Cardizem CD] 240 mg capsule,extended release 24hr 240 mg PO DAILY Qty: 90 0RF prednisone 10 mg tablet See Taper PO DIRECTED Qty: 42 0RF Taper: predniSONE 60-10 60 mg Daily for 2 Days and 0 Hour 50 mg Daily for 2 Days and 0 Hour 40 mg Daily for 2 Days and 0 Hour 30 mg Daily for 2 Days and 0 Hour 20 mg Daily for 2 Days and 0 Hour 10 mg Daily for 2 Days and 0 Hour Rx Instructions: see taper instructions levalbuterol tartrate [Xopenex HFA] 45 mcg/actuation HFA aerosol inhaler 1 inh inhalation Q6H PRN (Reason: shortness of breath or wheezing) Qty: 15 0RF Eliquis 5 mg tablet 5 mg PO BID Qty: 60 0RF Discharge Orders: Discharge ED (Routine); Ordered 04/08/25 Ordered By: Matthew Zhang Referrals: Cindy Joseph NP [Primary Care Provider, Nurse Practitioner] Patient Instructions: Patient Portal & Le Instructions Activity Restrictions/Additional Instructions: Continue taking home medications. Continue monitoring vitals at home specifically your oxygen and heart rate. Please follow-up with primary care as already planned, return with any new or worsening. Print Language: Nepalese Coding Level of Care Code ED Supervisory Geographer for Akbar Roe
[2025-04-08 12:32] LABS: Hematocrit 35.5 % (37-53); Hemoglobin 11.40 g/dL (11.27-16.99); Mean Corpuscular HGB Conc 32.1 g/dL (30-55); Mean Corpuscular Hemoglobin 30.6 pg (27-33); Mean Corpuscular Volume 95.2 fl (82-101); Nucleated Red Blood Cells % 0 %; Platelet Count 247 10^3/cmm (157-399); Red Blood Count 3.73 10^6/uL (3.85-5.65); White Blood Count 13.67 10^3/uL (3.29-11.43)
[2025-04-08 12:46] VITALS: BP 102/60; PULSE 75; O2SAT 99
[2025-04-08 13:05] VITALS: BP 105/61; PULSE 76; RESP 18; O2SAT 100
[2025-04-08 13:13] LABS: Alanine Aminotransferase 46 U/L (0-41); Albumin Level 3.3 g/dL (3.5-5.2); Alkaline Phosphatase 63 U/L (40-130); Anion Gap 8.2 (5-19); Aspartate Amino Transferase 18 U/L (0-40); Blood Urea Nitrogen 27 mg/dL (8-23); Calcium 8.4 mg/dL (8.5-10.5); Carbon Dioxide 36 mmol/L (22-29); Chloride 103 mmol/L (98-107); Globulin 2.0 g/dL (1.3-4.6); Glucose 155 mg/dL (65-115); NT Pro B Type Natriuretic Pept 935 pg/mL (0-125); Osmolality Calculated 304 mOsm/kg (285-295); Potassium 4.2 mmol/L (3.5-5.1); Sodium 143 mmol/L (136-145); Total Protein 5.3 g/dL (6.6-8.7)
[2025-04-08 13:29] LABS: Respiratory Syncytial Virus Ce NEGATIVE (Negative); SARS-CoV-2 PCR NEGATIVE (Negative)
[2025-04-08 13:52] VITALS: BP 108/61; PULSE 70; RESP 16; O2SAT 99
== END 2025-04-08 14:21 | disposition home or self-care (01) ==
PROVIDERS: Emergency Provider Physician Assistant; PCP Nurse Practitioner Family
DX: R06.02 Shortness of breath (principal); Z11.52 Encounter for screening for COVID-19; Z79.02 Long term (current) use of antithrombotics/antiplatelets; Z79.01 Long term (current) use of anticoagulants; J44.9 Chronic obstructive pulmonary disease, unspecified; I11.0 Hypertensive heart disease with heart failure; I50.43 Acute on chronic combined systolic (congestive) and diastolic (congestive) heart failure; Z72.0 Tobacco use
CPT/HCPCS: 36415; 71045; 80053; 83880; 85025; 87637; 93005; 99285

== ENCOUNTER 2025-04-12 12:43 | Observation (INO) | payer MEDICARE, SELFPAY ==
[2025-04-12] VITALS (15 sets, daily range): BP systolic 106–148; BP diastolic 50–84; PULSE 85–127; RESP 19–27; TEMP 36.4–37.1; O2SAT 94–100
--- NOTE | 2025-04-12 12:11 | ECG_ITS ---
[facility] Test Date: 2025-04-12 Pat Name: Darren Foley Department: Room: Gender: Male [employer] Applier: : [id number] Requested By: Wili Ortega Order Number: [id number] Erica MD: Kelly Aquino M.D. Measurements Intervals [place] Rate: 89 P: 0 CT: 0 QRS: 73 QRSD: 94 T: 63 QT: 347 QTc: 424 Interpretive Statements ATRIAL FIBRILLATION ABNORMAL RHYTHM ECG Compared to ECG 04/08/2025 12:19:36 Incomplete right bundle-branch block no longer present Electronically Signed On 04-13-2025 08:51:23 MUSHROOM PICKER by Kelly Aquino M.D. [email or web address]
--- NOTE | 2025-04-12 12:41 | W.ED.SOB ---
HPI - SOB/Dyspnea General: Chief Complaint: Shortness of Breath/Dyspnea Stated Complaint: CHF exacerbation, Leg swelling History of Present Illness: HPI Narrative: 65-year-old male presents emergency room complaining of increasing difficulty breathing increasing swelling in his legs he was discharged from here 2 days ago for congestive heart failure. He is a smoker and he still continues to smoke he was discharged home on Lasix 60 mg daily. He has taken all of his medications he denies any chest pain. Associated symptoms: Reports orthopnea; Deny abdominal pain, chest pain or fever(s) Related Data Home Medications ?Medication ?Instructions ?Recorded ?Confirmed trazodone 100 mg tablet 250 mg PO DAILY 04/03/22 04/08/25 brexpiprazole 1 mg tablet (Rexulti) 1 mg PO DAILY 06/23/23 04/08/25 fluoxetine 20 mg capsule 20 mg PO DAILY 06/23/23 04/08/25 budesonide 160 mcg-glycopyr 9 2 inh inhalation BID 01/22/24 04/08/25 mcg-formot 4.8 mcg/actuation HFA inhaler (DxContinuumztri Netragonphere) budesonide-formoterol HFA 160 1 puff inhalation BID 03/31/25 04/08/25 mcg-4.5 mcg/actuation aerosol inhaler (Breyna) clopidogrel 75 mg tablet 75 mg PO DAILY 03/31/25 04/08/25 fluoxetine 40 mg capsule 40 mg PO DAILY 03/31/25 04/08/25 fluticasone propionate 50 1 spray intranasal CONT 03/31/25 04/08/25 mcg/actuation nasal spray,suspension omeprazole 20 mg capsule,delayed 20 mg PO QAM 03/31/25 04/08/25 release roflumilast 500 mcg tablet 500 mcg PO DAILY 03/31/25 04/08/25 Previous Rx's ?Medication ?Instructions ?Recorded furosemide 20 mg tablet 20 mg PO DAILY #90 tabs 11/26/23 potassium chloride 10 mEq 10 meq PO DAILY #90 caps 11/26/23 capsule,extended release apixaban 5 mg tablet (Eliquis) 5 mg PO BID #60 tabs 04/03/25 diltiazem HCl 240 mg 240 mg PO DAILY #90 caps 04/03/25 capsule,extended release 24 hr (Cardizem CD) levalbuterol tartrate 45 1 inh inhalation Q6H PRN shortness 04/03/25 mcg/actuation aerosol inhaler of breath or wheezing #15 grams (Xopenex HFA) metoprolol tartrate 25 mg tablet 25 mg PO BID@0900,2100 30 days #60 04/03/25 tabs prednisone 10 mg tablet See Taper PO DIRECTED #42 tabs 04/03/25 Allergies Allergy/AdvReac Type Severity Reaction Status Date / Time No Known Drug Allergies Allergy Unknown Verified 01/21/24 08:27 Review of Systems Const: Denies: fever(s) or chills Card: Reports: irregular heart rhythm, edema, swelling of feet/ankles, dyspnea on exertion and orthopnea; Denies: chest pain Resp: Denies: dyspnea GI: Denies: abdominal pain : Denies: dysuria, urinary frequency or urinary urgency Musc: Denies: neck pain or back pain Skin/Breast: Denies: rash PFSH ED PFSH: Medical History Primary hypertension Anxiety Atrial fibrillation Chest pain Chronic obstructive pulmonary disease, unspecified COPD type Cigarette nicotine dependence Atherosclerosis Pre-syncope Dizziness Insomnia Shortness of breath Depression Fatigue Social History Smoking and tobacco/nicotine status: current every day tobacco/nicotine user Physical Exam Const: GENERAL APPEARANCE: cooperative ORIENTATION/CONSCIOUSNESS: Yes awake, Yes oriented to person, Yes oriented to place and Yes oriented to time HENMT: COMMON NORMALS: normocephalic, atraumatic and hearing grossly normal bilaterally HEAD & SCALP: normocephalic and atraumatic Resp: EFFORT & INSPECTION: Yes tachypneic and Yes uses accessory muscles AUSCULTATION: crackles Cardio: COMMON NORMALS: regular rate, regular rhythm and No murmurs present (Cardio) RATE: regular rate RHYTHM: regular rhythm GI: COMMON NORMALS: Soft to palpation and No hepatosplenomegaly present AUSCULTATION: Yes normoactive bowel sounds PALPATION: Yes Soft to palpation, No Tenderness to palpation present (GI), No Guarding due to palpation present (GI) and Yes No hepatosplenomegaly present Extremity: COMMON NORMALS: normal to inspection, capillary refill normal, no clubbing, cyanosis or edema, no calf tenderness and no pedal edema Neuro: SENSORIUM/ORIENTATION: Yes oriented to person, Yes oriented to place and Yes oriented to time Skin: COMMON NORMALS: no rashes or lesions noted GENERAL SKIN EXAM: no rashes or lesions noted Course Vital Signs: Vital signs: Vital Signs Temperature 98.7 F 04/12/25 12:36 Pulse Rate 92 04/12/25 14:17 Respiratory Rate 22 H 04/12/25 13:51 Blood Pressure 106/50 04/12/25 12:36 Pulse Oximetry 99 04/12/25 14:17 Oxygen Delivery Me thod BiPAP 04/12/25 13:51 Oxygen Flow Rate 2 04/12/25 12:36 Fraction of Inspir ed Oxygen 28 04/12/25 14:17 MDM - SOB/Dyspnea Medical Decision Making Mild CHF COPD exacerbation significant improvement with work of breathing with the BiPAP. His pCO2 was elevated into the 60s. He did not have a lot of improvement with the pCO2 on his second blood gas. Observation for COPD exacerbation CHF exacerbation. Patient given 80 mg Lasix in the emergency room. Discussed with hospitalist will place in [facility]. Medical Records I reviewed the patient's medical records. Lab Data I reviewed the patient's lab results. 04/12/25 12:40 04/12/25 12:40 Labs/Radiology: Radiology Impressions Chest X-Ray 04/12/25 13:08 IMPRESSION: No interval development of lung abnormality since the previous examination 04/08/2025. Laboratory Results WBC 13.97 10^3/uL (3.29-11.43) H 04/12/25 12:40 RBC 3.54 10^6/uL (3.85-5.65) L 04/12/25 12:40 Hgb 11.00 g/dL (11.27-16.99) L 04/12/25 12:40 Hct 35.0 % (37-53) L 04/12/25 12:40 MCV 98.9 fl (82-101) 04/12/25 12:40 MCH 31.1 pg (27-33) 04/12/25 12:40 MCHC 31.4 g/dL (30-55) 04/12/25 12:40 RDW 12.1 % (12.1-15.1) 04/12/25 12:40 Plt Count 254 10^3/cmm (157-399) 04/12/25 12:40 MPV 8.9 fL (7.4-10.4) 04/12/25 12:40 Neut % (Auto) 77.6 % 04/12/25 12:40 Lymph % (Auto) 10.7 % 04/12/25 12:40 [place] % (Auto) 8.7 % 04/12/25 12:40 Eos % (Auto) 0.3 % 04/12/25 12:40 Baso % (Auto) 0.1 % 04/12/25 12:40 Neut # (Auto) 10.86 10^3/uL (1.8-7.7) H 04/12/25 12:40 Lymph # (Auto) 1.5 10^3/uL (0.8-4.8) 04/12/25 12:40 [place] # (Auto) 1.2 10^3/uL (0.2-0.9) H 04/12/25 12:40 Eos # (Auto) 0.0 10^3/uL (0.0-0.8) 04/12/25 12:40 Baso # (Auto) 0.0 10^3/uL (0.0-0.1) 04/12/25 12:40 Nucleated RBC % (auto) 0 % 04/12/25 12:40 Nucleated RBCs # 0.0 /100WBC 04/12/25 12:40 Specimen Type Arterial 04/12/25 13:58 Sample Site Radial, right 04/12/25 13:58 ABG pH 7.43 (7.35-7.45) 04/12/25 13:58 ABG pCO2 62.2 mmHg (35-45) H* 04/12/25 13:58 ABG pO2 101.0 mmHg (80.0-100.0) H 04/12/25 13:58 ABG PO2/FiO2 Ratio 360 04/12/25 13:58 ABG HCO3 41.4 mmol/L (22-26) H 04/12/25 13:58 ABG O2 Saturation 99.0 04/12/25 13:58 ABG Base Excess 14.5 mmol/L (-2.0-2.0) H 04/12/25 13:58 Ananth Test Pos 04/12/25 13:58 A-a O2 Gradient 2.8 mmHg (5-10) L 04/12/25 13:58 Hematocrit 36.9 % (42-52) L 04/12/25 13:58 Hgb O2 Saturation 95.5 % (95-100) 04/12/25 13:58 Carboxyhemoglobin 2.9 %THgb (0.4-20.1) 04/12/25 13:58 Methemoglobin 0.6 % (0.4-1.5) 04/12/25 13:58 Total Hemoglobin 12.0 g/dL (14-18) L 04/12/25 13:58 Sodium 141.0 mmol/L (131-143) 04/12/25 13:58 Potassium 4.1 mmol/L (3.5-5.0) 04/12/25 13:58 Glucose 105.0 mg/dL (70-115) 04/12/25 13:58 Ionized Calcium 1.2 mmol/L (1.1-1.4) 04/12/25 13:58 O2 Delivery Device Bipap 04/12/25 13:58 FiO2 28.0 % 04/12/25 13:58 PEEP 8.0 cmH20 04/12/25 13:58 Quotation Checker ID Walci 04/12/25 13:58 Sodium 143 mmol/L (136-145) 04/12/25 12:40 Potassium 4.5 mmol/L (3.5-5.1) 04/12/25 12:40 Chloride 100 mmol/L (98-107) 04/12/25 12:40 Carbon Dioxide 36 mmol/L (22-29) H 04/12/25 12:40 Anion Gap 11.5 (5-19) 04/12/25 12:40 BUN 19 mg/dL (8-23) 04/12/25 12:40 Creatinine 0.6 mg/dL (0.7-1.2) L 04/12/25 12:40 GFR Calculation 135.6 mL/min (90-130) H 04/12/25 12:40 Glucose 94 mg/dL (65-115) 04/12/25 12:40 Calculated Osmolality 298 mOsm/kg (285-295) H 04/12/25 12:40 Lactic Acid 1.2 mmol/L (0.5-2.2) 04/12/25 12:40 Calcium 8.4 mg/dL (8.5-10.5) L 04/12/25 12:40 Total Bilirubin 0.2 mg/dL (0.15-1.2) 04/12/25 12:40 AST 21 U/L (0-40) 04/12/25 12:40 ALT 47 U/L (0-41) H 04/12/25 12:40 Alkaline Phosphatase 60 U/L (40-130) 04/12/25 12:40 NT-Pro-B Natriuret Pep 1306 pg/mL (0-125) H 04/12/25 12:40 Total Protein 5.4 g/dL (6.6-8.7) L 04/12/25 12:40 Albumin 3.5 g/dL (3.5-5.2) 04/12/25 12:40 Globulin 1.9 g/dL (1.3-4.6) 04/12/25 12:40 Procalcitonin 0.04 ng/mL (0-0.5) 04/12/25 12:40 All radiology interpretation(s) finalized by discharge EKG Data EKG 1: I personally reviewed and interpreted this EKG as follows: Interpretation: EKG 04/13/2025 1243 atrial fibrillation with a controlled rate of [address] QTc [address] No acute ST elevation ST depression or T wave inversion. Compared to previous EKG 04/08/2025 no acute changes Discharge Plan Discharge Patient Disposition: Placed in Observation Clinical Impression: Congestive heart failure, Acute exacerbation of chronic obstructive airways disease Coding Level of Care Code ED [employer] Helper for Akbar Roe
[2025-04-12 12:50] LABS: ABG PH Result 7.43 (7.35-7.45); Arterial Blood Gas Hematocrit 34.3 % (42-52); Blood Gas Allen Test Pos; Blood Gas Operator Identificat WALCI; Blood Gas Sample Site Radial, left; Blood Gas Sample Type Arterial; Carboxyhemoglobin 3.3 %THgb (0.4-20.1); Glucose Level-ABG 94.0 mg/dL (70-115); HCO3 ABG 40.4 mmol/L (22-26); Ionized Calcium Level - ABG 1.1 mmol/L (1.1-1.4); Methemoglobin 0.6 % (0.4-1.5); Oxygen Saturation ABG 98.2; PO2 ABG 85.5 mmHg (80.0-100.0); PO2 FiO2 Ratio Arterial Blood 4275; Potassium Level - ABG 4.2 mmol/L (3.5-5.0); Sodium Level - ABG 141.0 mmol/L (131-143)
[2025-04-12 12:51] LABS: ABG PCO2 61.1 mmHg (35-45)
[2025-04-12] MEDS: FUROsemide 10 mg/mL SDV 10mL 80 MG IVP (12:55)
[2025-04-12 12:56] LABS: Hematocrit 35.0 % (37-53); Hemoglobin 11.00 g/dL (11.27-16.99); Mean Corpuscular HGB Conc 31.4 g/dL (30-55); Mean Corpuscular Hemoglobin 31.1 pg (27-33); Mean Corpuscular Volume 98.9 fl (82-101); Nucleated Red Blood Cells % 0 %; Platelet Count 254 10^3/cmm (157-399); Red Blood Count 3.54 10^6/uL (3.85-5.65); White Blood Count 13.97 10^3/uL (3.29-11.43)
--- NOTE | 2025-04-12 13:08 | XR_ITS ---
WS: [id number] XR chest 1V portable [id number] REASON FOR EXAM: dyspnea/cough FINDINGS: Right lung nodule reported on previous examination of 04/08/2025 is not readily identifiable. The chest is otherwise unchanged compared to the previous examination. There is increased inhomogeneous lucency in the upper lobes and flattening of the hemidiaphragms, indicating hyperexpansion, consistent with obstructive lung disease likely central lobar emphysema. Heart is not enlarged. The left pu lmonary artery is prominent. No acute pulmonary parenchymal or pleural abnormality is identified. XR/XR chest 1V portable [id number] IMPRESSION: No interval development of lung abnormality since the previous examination 03/26.
[2025-04-12 13:25] LABS: Lactic Sepsis W/Reflex 1.2 mmol/L (0.5-2.2); NT Pro B Type Natriuretic Pept 1306 pg/mL (0-125); Procalcitonin 0.04 ng/mL (0-0.5)
[2025-04-12 13:36] LABS: Alanine Aminotransferase 47 U/L (0-41); Albumin Level 3.5 g/dL (3.5-5.2); Alkaline Phosphatase 60 U/L (40-130); Anion Gap 11.5 (5-19); Aspartate Amino Transferase 21 U/L (0-40); Blood Urea Nitrogen 19 mg/dL (8-23); Calcium 8.4 mg/dL (8.5-10.5); Carbon Dioxide 36 mmol/L (22-29); Chloride 100 mmol/L (98-107); Globulin 1.9 g/dL (1.3-4.6); Glucose 94 mg/dL (65-115); Osmolality Calculated 298 mOsm/kg (285-295); Potassium 4.5 mmol/L (3.5-5.1); Sodium 143 mmol/L (136-145); Total Protein 5.4 g/dL (6.6-8.7)
[2025-04-12 14:09] LABS: ABG PH Result 7.43 (7.35-7.45); Alveolar-Arterial Oxygen Gradi 2.8 mmHg (5-10); Arterial Blood Gas Hematocrit 36.9 % (42-52); Blood Gas Allen Test Pos; Blood Gas Operator Identificat WALCI; Blood Gas Sample Site Radial, right; Blood Gas Sample Type Arterial; Carboxyhemoglobin 2.9 %THgb (0.4-20.1); Glucose Level-ABG 105.0 mg/dL (70-115); HCO3 ABG 41.4 mmol/L (22-26); Ionized Calcium Level - ABG 1.2 mmol/L (1.1-1.4); Methemoglobin 0.6 % (0.4-1.5); Oxygen Saturation ABG 99.0; PEEP 8.0 cmH20; PO2 ABG 101.0 mmHg (80.0-100.0); PO2 FiO2 Ratio Arterial Blood 360; Potassium Level - ABG 4.1 mmol/L (3.5-5.0); Sodium Level - ABG 141.0 mmol/L (131-143)
[2025-04-12 14:10] LABS: ABG PCO2 62.2 mmHg (35-45)
--- NOTE | 2025-04-12 14:45 | PM.HP ---
Providers/Chief Complaint Admitting Physician: Duc Henriquez MD Primary Care Provider: Cindy Joseph NP Chief Complaint: CHF exacerbation, Leg swelling History of Present Illness Darren Foley Jr is a 65 year old male with a past medical history of tobacco abuse, coronary artery disease, atrial fibrillation, COPD, peripheral arterial disease who presents to the ER today with increased shortness of breath and bilateral leg swelling. Patient was recently hospitalized for A-fib RVR, CHF. Patient treated in the ER with 80 mg IV Lasix, DuoNeb, 125 mg IV Solu-Medrol, BiPAP with significant improvement of symptoms. By the time patient had been examined he had already urinated approximately 1 L of fluids. Spoke with patient about his tobacco use, he smokes approximate 1 pack/day whilst using supplemental oxygen 2 L/min at his baseline. Patient continues to endorse bilateral leg swelling and shortness of breath. Patient denies current chest pain, nausea, vomiting, diarrhea, abdominal pain, any type of bleeding, dark or tarry stools, or syncope. Patient states he has a tremor at his baseline. Patient also states daily medical marijuana use for anxiety. Patient did not really want to admit but is agreeable to an observation admission, wants to stop the BiPAP but we will keep on for 4 hours and repeat ABGs hopefully transitioning to oxygen by nasal cannula. Admits to cardiac stepdown in stable condition. All questions and concerns addressed the patient at bedside today. Review of Systems General: Reports: 10 or more systems reviewed and unremarkable except in HPI and below Card: Reports: irregular heart rhythm, swelling of feet/ankles and dyspnea on exertion Resp: Reports: dyspnea and wheezing Neuro: Reports: other (Tremor) Medications/Allergies Home Medications ?Medication ?Instructions ?Recorded ?Confirmed ?Last Taken ?Type trazodone 100 mg tablet 250 mg PO DAILY 04/03/22 04/08/25 04/07/25 20:00 History brexpiprazole 1 mg tablet (Rexulti) 1 mg PO DAILY 06/23/23 04/08/25 04/08/25 09:00 History fluoxetine 20 mg capsule 20 mg PO DAILY 06/23/23 04/08/25 04/08/25 12:00 History furosemide 20 mg tablet 20 mg PO DAILY #90 tabs 11/26/23 04/08/25 04/08/25 11:00 Rx potassium chloride 10 mEq 10 meq PO DAILY #90 caps 11/26/23 04/08/25 04/08/25 11:00 Rx capsule,extended release budesonide 160 mcg-glycopyr 9 2 inh inhalation BID 01/22/24 04/08/25 04/08/25 10:00 History mcg-formot 4.8 mcg/actuation HFA inhaler (Breztri Aerosphere) budesonide-formoterol HFA 160 1 puff inhalation BID 03/31/25 04/08/25 Unknown History mcg-4.5 mcg/actuation aerosol inhaler (Breyna) clopidogrel 75 mg tablet 75 mg PO DAILY 03/31/25 04/08/25 04/08/25 09:00 History fluoxetine 40 mg capsule 40 mg PO DAILY 03/31/25 04/08/25 04/08/25 12:00 History fluticasone propionate 50 1 spray intranasal CONT 03/31/25 04/08/25 03/30/25 History mcg/actuation nasal spray,suspension omeprazole 20 mg capsule,delayed 20 mg PO QAM 03/31/25 04/08/25 04/08/25 08:00 History release roflumilast 500 mcg tablet 500 mcg PO DAILY 03/31/25 04/08/25 04/08/25 09:00 History apixaban 5 mg tablet (Eliquis) 5 mg PO BID #60 tabs 04/03/25 04/08/25 04/08/25 09:00 Rx diltiazem HCl 240 mg 240 mg PO DAILY #90 caps 04/03/25 04/08/25 04/08/25 09:00 Rx capsule,extended release 24 hr (Cardizem CD) levalbuterol tartrate 45 1 inh inhalation Q6H PRN shortness 04/03/25 04/08/25 04/08/25 10:00 Rx mcg/actuation aerosol inhaler of breath or wheezing #15 grams (Xopenex HFA) metoprolol tartrate 25 mg tablet 25 mg PO BID@0900,2100 30 days #60 04/03/25 04/08/25 04/08/25 09:00 Rx tabs prednisone 10 mg tablet See Taper PO DIRECTED #42 tabs 04/03/25 04/08/25 04/08/25 12:00 Rx Allergies Allergy/AdvReac Type Severity Reaction Status Date / Time No Known Drug Allergies Allergy Unknown Verified 01/21/24 08:27 PFSH Acute PFSH: Medical History (Updated 04/12/25 @ 15:37 by Sandra López NP) Primary hypertension Anxiety Atrial fibrillation Chest pain Chronic obstructive pulmonary disease, unspecified COPD type Cigarette nicotine dependence Atherosclerosis Pre-syncope Dizziness Insomnia Shortness of breath Depression Fatigue Social History Smoking and tobacco/nicotine status: current every day tobacco/nicotine user Vitals/I&O/Wt Last Vital Signs Temp 98.7 F 04/12/25 12:36 Pulse 92 04/12/25 14:17 Resp 22 H 04/12/25 13:51 BP 106/50 04/12/25 12:36 Pulse Ox 99 04/12/25 14:17 O2 Del Method BiPAP 04/12/25 13:51 O2 Flow Rate 2 04/12/25 12:36 FiO2 28 04/12/25 14:17 Physical Exam Narrative: 65-year-old male, disheveled, sitting up in bed with BiPAP in place, continue shortness of breath, otherwise in no apparent distress. Const: COMMON NORMALS: no acute distress and well nourished HENMT: COMMON NORMALS: normocephalic and Normal external nose present Eye: COMMON NORMALS: Equal, round and reactive pupils present Resp: EFFORT & INSPECTION: Yes tachypneic AUSCULTATION: crackles and diminished lung sounds Cardio: RHYTHM: abnormal rhythm regularly irregular GI: COMMON NORMALS: Normal to inspection, nondistended, normoactive bowel sounds present Extremity: NARRATIVE EXTREMITY EXAM: Bilateral 2+ dependent edema Neuro: COMMON NORMALS: patient oriented x3, CN's II-XII intact bilaterally and moves all extremities Psych: COMMON NORMALS: cooperative, normal affect and speech normal Skin: COMMON NORMALS: no rashes or lesions noted NARRATIVE SKIN EXAM: 2+ pitting edema bilateral lower extremities Data 04/12/25 12:40 04/12/25 12:40 Micro: Microbiology 04/12/25 13:52 Blood Culture - Preliminary Blood SPECIMEN COLLECTED 04/12/25 12:40 Blood Culture - Preliminary Blood SPECIMEN COLLECTED A&P Assessment and plan 1. Acute on chronic combined systolic and diastolic congestive heart failure: 2. Edema, peripheral: 3. Shortness of breath: 4. Dyslipidemia: 5. Primary hypertension: 6. Atrial fibrillation: 7. Chronic obstructive pulmonary disease, unspecified COPD type: 8. Tobacco abuse: Plan: Acute on chronic combined systolic and diastolic heart failure Edema Dyspnea - Given 80 mg IV Lasix in the ER, continue IV Lasix for diuresis on admission - Admitting BNP 1306, up from last week at 935 - Strict ELIN - 1500 mL fluid restriction - Daily weights - Last echo 03/31/2025: Mild diffuse hypokinesis of the septum and anterior septum, LV ejection fraction around 44%, grade I/IV diastolic dysfunction - Continue cardio-protective medications as previously prescribed COPD Acute on chronic hypercapnic respiratory failure - CXR: No interval development of lung abnormality since the previous examination 04/08/2025 - Continue as needed and scheduled DuoNeb, Pulmicort twice daily - Admitting ABG: pH 7.43, pCO2 62.2, pO2 101, HCO3 41.4, O2 sat 99.0 - Continue BiPAP, repeat ABGs - Supplemental oxygen 2 L/min by nasal cannula as his baseline - Admitting WBC 13.97 - Pending blood culture x 2 - Empiric antibiotics doxycycline 100 mg p.o. twice daily Atrial fibrillation - Rate controlled, heart rate 92 on admission - Continue Cardizem and Eliquis Hypertension - Admitting blood pressure 106/50 - Resume home medications Dyslipidemia - Continue home dosing statin Tobacco abuse - Smokes 1 pack/day - Nicotine patch - Smoking cessation advised VTE PPx: Eliquis, SCDs GI PPx: Pepcid CODE STATUS: Full code PDMP PDMP Reviewed: Not Reviewed Attestations Medical Necessity Statement*: Patient is admitted to observation admission does not expect to exceed 1 midnight, will just need diuresing, respiratory support hopefully will wean off BiPAP back to baseline nasal cannula, cardiac monitoring, continued medical management. and High Time for a total of 75 minutes, includes reviewing past or interval history, examining/interviewing patient, placing orders, counseling patient/family/other support, discussing plan of care with staff, documenting encounter and coordinating care Diagnoses Acute on chronic combined systolic and diastolic congestive heart failure I50.43 Heart failure type: combined systolic and diastolic Heart failure chronicity: acute on chronic Edema, peripheral R60.0 Shortness of breath R06.02 Dyslipidemia E78.5 Primary hypertension I10 Hypertension type: primary hypertension Atrial fibrillation I48.91 Chronic obstructive pulmonary disease, unspecified COPD type J44.9 COPD type: unspecified COPD Tobacco abuse Z72.0
--- NOTE | 2025-04-12 14:54 | PM.DCS ---
Discharge Providers Date of Admission: 04/12/25 14:43 Date of Discharge: April 12, 2025 Attending Provider at Admission: Duc Henriquez MD Attending Provider at Discharge: Duc Henriquez MD Primary Care Provider: Cindy Joseph NP Reason for Visit Reason for Visit: CHF exacerbation, Leg swelling Discharge Data Studies Completed and Pending Completed Studies During Hospitalization Category Date Time Status XR chest 1V portable [id number] Stat Exams 04/12/25 13:08 Completed Pending at discharge Category Date Time Status ABG ONLY [Arterial Blood Gas W/O Coox] Timed Lab 04/12/25 17:00 Ordered Blood Culture Stat Lab 04/12/25 13:52 Results Complete Blood Count w/Auto AM LABS Lab 04/13/25 04:00 Ordered Comprehensive Metabolic Panel AM LABS Lab 04/13/25 04:00 Ordered Magnesium AM LABS Lab 04/13/25 04:00 Ordered Radiology Impressions Chest X-Ray 04/12/25 13:08 IMPRESSION: No interval development of lung abnormality since the previous examination 04/08/2025. Laboratory Results WBC 13.97 10^3/uL (3.29-11.43) H 04/12/25 12:40 RBC 3.54 10^6/uL (3.85-5.65) L 04/12/25 12:40 Hgb 11.00 g/dL (11.27-16.99) L 04/12/25 12:40 Hct 35.0 % (37-53) L 04/12/25 12:40 MCV 98.9 fl (82-101) 04/12/25 12:40 MCH 31.1 pg (27-33) 04/12/25 12:40 MCHC 31.4 g/dL (30-55) 04/12/25 12:40 RDW 12.1 % (12.1-15.1) 04/12/25 12:40 Plt Count 254 10^3/cmm (157-399) 04/12/25 12:40 MPV 8.9 fL (7.4-10.4) 04/12/25 12:40 Neut % (Auto) 77.6 % 04/12/25 12:40 Lymph % (Auto) 10.7 % 04/12/25 12:40 [place] % (Auto) 8.7 % 04/12/25 12:40 Eos % (Auto) 0.3 % 04/12/25 12:40 Baso % (Auto) 0.1 % 04/12/25 12:40 Neut # (Auto) 10.86 10^3/uL (1.8-7.7) H 04/12/25 12:40 Lymph # (Auto) 1.5 10^3/uL (0.8-4.8) 04/12/25 12:40 [place] # (Auto) 1.2 10^3/uL (0.2-0.9) H 04/12/25 12:40 Eos # (Auto) 0.0 10^3/uL (0.0-0.8) 04/12/25 12:40 Baso # (Auto) 0.0 10^3/uL (0.0-0.1) 04/12/25 12:40 Nucleated RBC % (auto) 0 % 04/12/25 12:40 Nucleated RBCs # 0.0 /100WBC 04/12/25 12:40 Specimen Type Arterial 04/12/25 13:58 Sample Site Radial, right 04/12/25 13:58 ABG pH 7.43 (7.35-7.45) 04/12/25 13:58 ABG pCO2 62.2 mmHg (35-45) H* 04/12/25 13:58 ABG pO2 101.0 mmHg (80.0-100.0) H 04/12/25 13:58 ABG PO2/FiO2 Ratio 360 04/12/25 13:58 ABG HCO3 41.4 mmol/L (22-26) H 04/12/25 13:58 ABG O2 Saturation 99.0 04/12/25 13:58 ABG Base Excess 14.5 mmol/L (-2.0-2.0) H 04/12/25 13:58 Ananth Test Pos 04/12/25 13:58 A-a O2 Gradient 2.8 mmHg (5-10) L 04/12/25 13:58 Hematocrit 36.9 % (42-52) L 04/12/25 13:58 Hgb O2 Saturation 95.5 % (95-100) 04/12/25 13:58 Carboxyhemoglobin 2.9 %THgb (0.4-20.1) 04/12/25 13:58 Methemoglobin 0.6 % (0.4-1.5) 04/12/25 13:58 Total Hemoglobin 12.0 g/dL (14-18) L 04/12/25 13:58 Sodium 141.0 mmol/L (131-143) 04/12/25 13:58 Potassium 4.1 mmol/L (3.5-5.0) 04/12/25 13:58 Glucose 105.0 mg/dL (70-115) 04/12/25 13:58 Ionized Calcium 1.2 mmol/L (1.1-1.4) 04/12/25 13:58 O2 Delivery Device Bipap 04/12/25 13:58 FiO2 28.0 % 04/12/25 13:58 PEEP 8.0 cmH20 04/12/25 13:58 Fruit Pitter ID Walci 04/12/25 13:58 Sodium 143 mmol/L (136-145) 04/12/25 12:40 Potassium 4.5 mmol/L (3.5-5.1) 04/12/25 12:40 Chloride 100 mmol/L (98-107) 04/12/25 12:40 Carbon Dioxide 36 mmol/L (22-29) H 04/12/25 12:40 Anion Gap 11.5 (5-19) 04/12/25 12:40 BUN 19 mg/dL (8-23) 04/12/25 12:40 Creatinine 0.6 mg/dL (0.7-1.2) L 04/12/25 12:40 GFR Calculation 135.6 mL/min (90-130) H 04/12/25 12:40 Glucose 94 mg/dL (65-115) 04/12/25 12:40 Calculated Osmolality 298 mOsm/kg (285-295) H 04/12/25 12:40 Lactic Acid 1.2 mmol/L (0.5-2.2) 04/12/25 12:40 Calcium 8.4 mg/dL (8.5-10.5) L 04/12/25 12:40 Total Bilirubin 0.2 mg/dL (0.15-1.2) 04/12/25 12:40 AST 21 U/L (0-40) 04/12/25 12:40 ALT 47 U/L (0-41) H 04/12/25 12:40 Alkaline Phosphatase 60 U/L (40-130) 04/12/25 12:40 NT-Pro-B Natriuret Pep 1306 pg/mL (0-125) H 04/12/25 12:40 Total Protein 5.4 g/dL (6.6-8.7) L 04/12/25 12:40 Albumin 3.5 g/dL (3.5-5.2) 04/12/25 12:40 Globulin 1.9 g/dL (1.3-4.6) 04/12/25 12:40 Procalcitonin 0.04 ng/mL (0-0.5) 04/12/25 12:40 Vitals Last Vital Signs Temp 98.7 F 04/12/25 12:36 Pulse 92 04/12/25 14:17 Resp 22 H 04/12/25 13:51 BP 106/50 04/12/25 12:36 Pulse Ox 99 04/12/25 14:17 O2 Del Method BiPAP 04/12/25 13:51 O2 Flow Rate 2 04/12/25 12:36 FiO2 28 04/12/25 14:17 Discharge Plan Discharge Patient Disposition: Home Condition: Stable Prescriptions: No Action trazodone 100 mg tablet 250 mg PO DAILY fluoxetine 20 mg capsule 20 mg PO DAILY Rx Instructions: along with 40mg to=60mg total Rexulti 1 mg tablet 1 mg PO DAILY furosemide 20 mg tablet 20 mg PO DAILY Qty: 90 3RF potassium chloride 10 mEq capsule, extended release 10 meq PO DAILY Qty: 90 3RF Breztri Aerosphere 160-9-4.8 mcg/actuation Hfa Aerosol Inhaler 2 inh INHALATION BID fluoxetine 40 mg capsule 40 mg PO DAILY Rx Instructions: along with 20mg to=60mg total clopidogrel 75 mg tablet 75 mg PO DAILY omeprazole 20 mg capsule,delayed release(DR/EC) 20 mg PO QAM fluticasone propionate 50 mcg/actuation spray,suspension 1 spray INTRANASAL CONT budesonide-formoterol [Breyna] 160-4.5 mcg/actuation HFA aerosol inhaler 1 puff INHALATION BID roflumilast 500 mcg tablet 500 mcg PO DAILY metoprolol tartrate 25 mg Tablet 25 mg PO BID@0900,2100 30 Days Qty: 60 0RF diltiazem HCl [Cardizem CD] 240 mg capsule,extended release 24hr 240 mg PO DAILY Qty: 90 0RF prednisone 10 mg tablet See Taper PO DIRECTED Qty: 42 0RF Taper: predniSONE 60-10 60 mg Daily for 2 Days and 0 Hour 50 mg Daily for 2 Days and 0 Hour 40 mg Daily for 2 Days and 0 Hour 30 mg Daily for 2 Days and 0 Hour 20 mg Daily for 2 Days and 0 Hour 10 mg Daily for 2 Days and 0 Hour Rx Instructions: see taper instructions levalbuterol tartrate [Xopenex HFA] 45 mcg/actuation HFA aerosol inhaler 1 inh inhalation Q6H PRN (Reason: shortness of breath or wheezing) Qty: 15 0RF Eliquis 5 mg tablet 5 mg PO BID Qty: 60 0RF Referrals: Cindy Joseph NP [Primary Care Provider, Nurse Practitioner] Patient Instructions: Opioid Safety, Pain Management, Patient Portal & Le Instructions Discharge Attestations Status at Discharge: Cognitive status at discharge: cognitively intact, Behavioral status at discharge: cooperative, Coding Level of Care Code Acute Code for [place] Jyothi
[2025-04-12] MEDS: methylPREDNISolone sod succ 125 mg/2 mL INJ IVP (15:16)
--- NOTE | 2025-04-12 15:39 | PC.NURSE ---
Patient transferred to CSU from ED at 1530.
[2025-04-12] MEDS: FUROsemide 10 mg/mL SDV 4mL 40 MG IVP (16:31)
[2025-04-12 17:29] LABS: ABG PH Result 7.45 (7.35-7.45); Arterial Blood Gas Hematocrit 36.8 % (42-52); Blood Gas Allen Test Pos; Blood Gas Operator Identificat WALCI; Blood Gas Sample Site Radial, left; Blood Gas Sample Type Arterial; HCO3 ABG 44.7 mmol/L (22-26); PEEP 8.0 cmH20; PO2 ABG 76.9 mmHg (80.0-100.0); PO2 FiO2 Ratio Arterial Blood 274
[2025-04-12 17:30] LABS: ABG PCO2 64.3 mmHg (35-45)
[2025-04-12] MEDS: methylPREDNISolone sod succ 125 mg/2 mL INJ 80 MG IVP (20:57)
[2025-04-13] VITALS (14 sets, daily range): BP systolic 118–139; BP diastolic 69–86; PULSE 100–129; RESP 18–38; TEMP 36.6–37; O2SAT 92–99
[2025-04-13 02:16] LABS: ABG PH Result 7.44 (7.35-7.45); Arterial Blood Gas Hematocrit 37.3 % (42-52); Blood Gas LPM 2.0 %; Blood Gas Sample Site Brachial, right; Blood Gas Sample Type Arterial; Carboxyhemoglobin 1.2 %THgb (0.4-20.1); Glucose Level-ABG 214.0 mg/dL (70-115); HCO3 ABG 44.8 mmol/L (22-26); Ionized Calcium Level - ABG 1.2 mmol/L (1.1-1.4); Methemoglobin 1.3 % (0.4-1.5); Oxygen Saturation ABG 99.0; PO2 ABG 117.0 mmHg (80.0-100.0); Potassium Level - ABG 4.0 mmol/L (3.5-5.0); Sodium Level - ABG 140.0 mmol/L (131-143)
[2025-04-13 02:17] LABS: ABG PCO2 66.5 mmHg (35-45); Alveolar-Arterial Oxygen Gradi 0.0 mmHg (5-10)
[2025-04-13 04:57] LABS: Hematocrit 34.3 % (37-53); Hemoglobin 11.20 g/dL (11.27-16.99); Mean Corpuscular HGB Conc 32.7 g/dL (30-55); Mean Corpuscular Hemoglobin 31.2 pg (27-33); Mean Corpuscular Volume 95.5 fl (82-101); Nucleated Red Blood Cells % 0 %; Platelet Count 255 10^3/cmm (157-399); Red Blood Count 3.59 10^6/uL (3.85-5.65); White Blood Count 11.09 10^3/uL (3.29-11.43)
[2025-04-13] MEDS: methylPREDNISolone sod succ 125 mg/2 mL INJ 80 MG IVP ×3 (05:17→21:37)
[2025-04-13] MEDS: FUROsemide 10 mg/mL SDV 4mL 40 MG IVP ×2 (05:17→16:51)
[2025-04-13 05:18] LABS: Alanine Aminotransferase 44 U/L (0-41); Albumin Level 3.6 g/dL (3.5-5.2); Alkaline Phosphatase 64 U/L (40-130); Anion Gap 10.1 (5-19); Aspartate Amino Transferase 20 U/L (0-40); Blood Urea Nitrogen 21 mg/dL (8-23); Calcium 8.7 mg/dL (8.5-10.5); Chloride 92 mmol/L (98-107); Globulin 1.9 g/dL (1.3-4.6); Glucose 201 mg/dL (65-115); Magnesium 2.3 mg/dL (1.7-2.3); Osmolality Calculated 299 mOsm/kg (285-295); Potassium 4.1 mmol/L (3.5-5.1); Sodium 140 mmol/L (136-145); Total Protein 5.5 g/dL (6.6-8.7)
[2025-04-13 05:33] LABS: Carbon Dioxide 42 mmol/L (22-29)
--- NOTE | 2025-04-13 08:09 | P.PN_ITS ---
Subjective 2 Subjective: Patient is a pleasant 65-year-old male seen and examined at bedside on hospital rounds this morning. Patient sitting up at bedside with nasal cannula in place eating breakfast, increased respirations and work of breathing. Patient denies new or worsening symptoms. However patient's heart rate is uncontrolled, resumed home medication Cardizem, awaiting updated home medication list and will resume remaining home medications this morning. Given patient's elevated respiratory effort/respirations and increased CO2 level, will return to BiPAP and continue treatment for at least 1 more midnight. Reviewed patient's labs, WBC 11.09. pCO2 66.5. Elevated glucose most likely secondary to steroid use. Patient is agreeable, all questions and concerns addressed at the bedside today. Vitals/I&O/Wt Last Vital Signs Temp 97.9 F 04/13/25 07:57 Pulse 129 H 04/13/25 07:57 Resp 28 H 04/13/25 07:57 BP 135/86 04/13/25 07:57 Pulse Ox 92 04/13/25 07:57 O2 Del Method Nasal Cannula 04/13/25 07:49 O2 Flow Rate 2 04/13/25 07:49 FiO2 28 04/13/25 04:35 04/12/25 04/13/25 04/13/25 22:59 06:59 14:59 Intake Total 480 / 480 600 / 1080 Output Total 350 / 350 975 / 1325 Balance 130 / 130 -375 / -245 Weight last 48 hrs Weight 67.177 kg Weight 68.4 kg Physical Exam 2 Narrative: 65-year-old male, disheveled, sitting up in bed with nasal cannula in place, continued shortness of breath and work of breathing. Const: COMMON NORMALS: no acute distress, patient oriented x3 and well nourished HENMT: COMMON NORMALS: normocephalic and Normal external nose present HEAD & SCALP: normocephalic NOSE: Normal external nose present Eye: COMMON NORMALS: Equal, round and reactive pupils present PUPIL: Yes Equal, round and reactive pupils present Resp: EFFORT & INSPECTION: Yes tachypneic AUSCULTATION: crackles and diminished lung sounds Cardio: RHYTHM: abnormal rhythm regularly irregular GI: COMMON NORMALS: Normal to inspection, nondistended, normoactive bowel sounds present Extremity: NARRATIVE EXTREMITY EXAM: Bilateral 1+ dependent edema Neuro: COMMON NORMALS: patient oriented x3, CN's II-XII intact bilaterally and moves all extremities Psych: COMMON NORMALS: cooperative, normal affect and speech normal SPEECH: Yes normal speech Skin: COMMON NORMALS: no rashes or lesions noted NARRATIVE SKIN EXAM: 1+ pitting edema bilateral lower extremi ties, improved over previous inspection GENERAL SKIN EXAM: no rashes or lesions noted Data 04/13/25 04:04 04/13/25 04:04 Micro: Microbiology 04/12/25 13:52 Blood Culture - Preliminary Blood SPECIMEN COLLECTED 04/12/25 12:40 Blood Culture - Preliminary Blood SPECIMEN COLLECTED A&P Assessment and plan 1. Acute on chronic combined systolic and diastolic congestive heart failure: 2. Edema, peripheral: 3. Shortness of breath: 4. Dyslipidemia: 5. Primary hypertension: 6. Atrial fibrillation: 7. Chronic obstructive pulmonary disease, unspecified COPD type: 8. Tobacco abuse: Plan: Acute on chronic combined systolic and diastolic heart failure Edema Dyspnea - Given 80 mg IV Lasix in the ER, continue IV Lasix for diuresis on admission - Admitting BNP 1306, up from last week at 935 - Strict ELIN - 1500 mL fluid restriction - Daily weights - Last echo 03/31/2025: Mild diffuse hypokinesis of the septum and anterior septum, LV ejection fraction around 44%, grade I/IV diastolic dysfunction - Continue cardio-protective medications as previously prescribed COPD Acute on chronic hypercapnic respiratory failure - CXR: No interval development of lung abnormality since the previous examination 04/08/2025 - Continue as needed and scheduled DuoNeb, Pulmicort twice daily - Repeat ABG: pH 7.44, CO2 66.5, O2 117.0, HCO3 44.8, O2 sat 99 - Continue BiPAP, repeat ABGs - Supplemental oxygen 2 L/min by nasal cannula as his baseline - Admitting WBC 13.97, now 11.09 - Pending blood culture x 2 - Empiric antibiotics doxycycline 100 mg p.o. twice daily Atrial fibrillation - Elevated heart rate 125 - Continue Cardizem and Eliquis Hypertension - Blood pressure 135/86 - Resume home medications Dyslipidemia - Continue home dosing statin Tobacco abuse - Smokes 1 pack/day - Nicotine patch - Smoking cessation advised VTE PPx: Eliquis, SCDs GI PPx: Pepcid CODE STATUS: Full code PDMP PDMP Reviewed: Not Reviewed Attestations 2 Medical Necessity Statement*: Patient will require at least 1 more midnight of hospitalization with need to return to BiPAP with continued respiratory support hopefully will wean off BiPAP back to baseline nasal cannula, continue diuresing, cardiac monitoring, continued medical management. Coding Level of Care Code 69347 Diagnoses Acute on chronic combined systolic and diastolic congestive heart failure I50.43 Heart failure chronicity: acute on chronic Heart failure type: combined systolic and diastolic Edema, peripheral R60.0 Shortness of breath R06.02 Dyslipidemia E78.5 Primary hypertension I10 Hypertension type: primary hypertension Atrial fibrillation I48.91 Chronic obstructive pulmonary disease, unspecified COPD type J44.9 COPD type: unspecified COPD Tobacco abuse Z72.0
--- NOTE | 2025-04-13 09:13 | PC.PHAR ---
Pt knows some of his medications, but not all of them Verified with [facility].
[2025-04-13] MEDS: dilTIAZem ER (24HR) 240 mg Capsule PO (09:23)
--- NOTE | 2025-04-13 09:29 | PC.CHAP ---
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 [] Patient/Family/Request visit [] Outpatient visit [] Follow-up visit [] Physician referral [] Code/Alert [] Routine visit [] Staff referral [] Actively dying [] Patient sleeping [] Family support [] [] Out of room [] Palliative care [] [x] Receiving care in room [] Pre-surgical visit [] Trauma [] Long length of stay [] ICU visit [] Other: Relational/Emotional Strength [] Patient feels connected with others/family/visitors/staff [] Distress [] Loneliness/isolation [] Abandonment Spirituality of Patient [] Person of Mery [] Attends Tenriism of their Mery [] Believes in Prayer [] Reads Bible or Catholic materials [] There are Spiritual issues to be addressed Air Motor Repairer Interventions [] Prayer [] Active listening [] Non-anxious presence [] Spiritual/emotional support [] Crisis/trauma care [] Spiritual counseling [] Bereavement support [] Provided bereavement packet [] Provided Bible/devotional materials [] Provided toy/stuffed animal, coloring book to patient or family member [] Provided Communion [] Anointing/[place] [] Salvation [] Completed spiritual assessment [] Other: Impact on Illness or Injury [] Angry [] Fearful [] Anxious [] Often cries [] Exhaustion [] Unable to work [] Unable to attend yarsanism [] Unable to walk/stand [] Unable to read [] Unable to drive [] Unable to eat/drink [] Unable to sleep [] Unable to be with family [] Patient intubated [] Other: Summary Time spent with patient
--- OUTSIDE RECORDS SUMMARY | 2025-04-13 12:23 | XMS_ITS | Data Portability ---
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 J44.1 Depomedrol 80 mg and dex 4 mg. Start oral steroids tomorrow.D iscussed with patient if worsening or not improving go to ER. [id number] KORI ANTONIO [address] [address] 01/28/2024 11:12:13 01/29/2024 08:55:07 Chronic obstructive pulmonary disease 38261574 J44.9 Urinary incontinence 165 507668 R32 UA negative. Will do trial of tamsulosin Sebaceous cyst of skin 219353612 L72.3 Patient will return tomorrow for excision Diet education 80325864 Z71.3 Exercises education, guidance, and counseling 420867721 Z71.82 Finding of body mass index 717556589 Z68.21 BMI 21.2 [id number] KORI ANTONIO [address] [address] 01/29/2024 10:21:47 02/02/2024 08:10:33 Sebaceous cyst of skin 769849472 L72.3 Excision of cyst completed. Watch for signs of infection. Pt voiced understand ing. Body mass index 20-24 - normal 020115022 Z68.24 BMI 21 Diet education 05626185 Z71.3 Exercises education, guidance, and counseling 638001375 Z71.82 [id number] Magnus Mendiola DO [address] [address] 02/02/2024 15:26:53 02/03/2024 09:03:01 Sebaceous cyst of skin 410875362 L72.3 Patient presents to follow up on [...] ing. Body mass index 20-24 - normal 444187146 Z68.21 BMI 21.4Counse led on importance of healthy diet and 20-30 minutes of exercise 3-5 times per week. Low blood pressure 27025 003 I95.9 Patient blood pressure and pulse noted to be low during visit. Provider rechecked both pulse and b/p noting an increase in readings. Patient stated he had taken his blood pressure medication s before coming in to [facility]. Provider discussed having patient monitor his pulse and blood pressure at home and keeping a log of the readings and if pulse continues to be noted under 60 and blood pressure less than 90/60 than to follow up with his primary care provider as his medication s may need to be adjusted. Patient verbalized understand ing. [id number] KORI ANTONIO DO [address] [address] 02/11/2024 11:45:40 02/12/2024 09:12:57 Low blood pressure 23410865 I95.9 Hold the amlodipine , lisinopril , lasix, potassium and flomax.Mon itor blood pressure at home and will call to update how he is doing. 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 Patient agrees to monitor blood pressure at home and notify provider if remains >140/90. Body mass index 20-24 - normal 015949754 Z68.24 BMI 22.7 Diet education 41343172 Z71.3 Exercises education, guidance, and counseling 943364657 Z71.82 Edema of l ower extremity 033989591 R60.0 Will restart lasix 20 mg and potassium 10 meq Acute exac erbation of chronic obstructive pulmonary disease 513114642 J44.1 Depomedrol 80 mg and dex 4 mg.Discuss ed with patient if worsening or not improving. Let provider know. Insomnia 896099940 G47.0 0 Stable on trazodone Administra tion of influenza vaccine 33436750 Z23 Depressive disorder 3548 9007 F32.A [id number] KORI ANTONIO DO [facility] [address] [place] [address] 04/01/2024 11:34:00 04/05/2024 13:26:45 Hypertensive disorder 90056801 I10 Pt blood pressure was good in the clinic today, it was 120/62 sitting in the L arm. Not taking any blood pressure medication . Will continue to monitor. Body mass index 20-24 - normal 104823938 Z68.24 BMI is 20.9 today Diet education 02305515 Z71.3 Exercises education, guidance, and counseling 665567427 Z71.82 Depressive disorder 3548 9007 F32.A Instructed to continue the Fluoxetine 40mg daily. Peripheral vascular disease 106835267 I73.9 Doing well after stents placed in bilateral legs. Continue clopidogre l Allergic rhinitis 394958 04 J30.9 [id number] KORI ANTONIO DO [facility] [address] [place] [address] 05/10/2024 15:23:25 05/11/2024 16:07:38 Body mass index 20-24 - normal 912194789 Z68.24 BMI 21. 2 Diet education 83142756 Z71.3 Exercises education, guidance, and counseling 310632944 Z71.82 Bleeding from nose 65286 6005 R04.0 If bleeding occurs again and does not stop will need to see specialist . Pt is hesitant on this because he is on limited funds. Hypertensive disorder 38 822121 I10 He is going to go home to check to see what he is taking and return call. Discussed with patient if he is not taking lasix he does not need to take potassium. Diabetes m ellitus screening 301565412 Z13.1 Acute exac erbation of chronic obstructive pulmonary disease 888144493 J44.1 Depomedrol 80 mg and dexamethas one 4 mg given;CXR obtained and will send to radiologis t to review.Cou rse of oral steroids and antibiotic s.Discusse d with patient if worsening or not improving. Let provider know. [id number] KORI ANTONIO DO [facility] [address] [place] [address] 06/15/2024 11:40:49 06/16/2024 12:00:31 Depressive disorder 14104042 F32.A Continue fluoxetine . His small dog Biscuit is helping with his depression . Chronic ob structive pulmonary disease 46340124 J44.9 Insomnia 330520744 G47.0 0 Stable on trazodone Hypertensive disorder 38 231340 I10 . Blood pressure stable without medication [id number] KORI ANTONIO DO [facility] [address] [place] [address] 08/16/2024 11:45:54 08/17/2024 08:44:11 Body mass index 20-24 - normal 363380153 Z68.24 BMI 21 Diet education 68102104 Z71.3 Exercises education, guidance, and counseling 915668989 Z71.82 Acute exac erbation of chronic obstructive pulmonary disease 422416559 J44.1 Course of antibiotic s given and steroids. He has follow up with Dr. Kasper. If not improving let provider know. Attempted walk test but unable to complete d/t shortness of breath. SPO2 remained above 89%. Unable to approve for portable oxygen. Edema of l ower extremity 374602490 R60.0 Will restart lasix 20 mg and potassium 10 mEq Peripheral arterial occlusive disease 485333084 I73.9 Will obtain his [facility] Cardiologi st note [id number] Pineda Kasper MD [address] [address] 09/08/2024 11:04:54 09/09/2024 11:44:32 Chronic obstructive pulmonary disease 50226189 J44.9 159657250 He has been started on Breztri. He [...] years old and he was counseled accordingl y.- We will order DuoNeb for him- I [...] previously . Chronic hy poxemic respiratory failure 875154920 J96.11 594425 Check a 6-minute walk test today. He [...] and follow-up in 1 month Tobacco user 136443412 Z 72.0 952773 Since the age of 14 the time [...] 1 month Pulmonary emphysema 8743 3001 J43.9 206748958 He has been started on Breztri. He [...] to the hospital. Follow-up in 1 month [id number] KORI ANTONIO DO [facility] [address] [place] [address] 11/02/2024 10:36:57 11/03/2024 16:02:03 Acute exacerbation of chronic obstructive pulmonary disease 267124239 J44.1 970359 Albuterol treatment given in clinic and wheezing improved.Lucie olea had a 6 minute walk test but his 02 saturation went up.Will keep his follow up with Dr. Kasper on October via zoom.alex anguiano administer ed in clinic. Wheezing improved.A script for steroids sent to pharmacy(P rednisone 40 mg for 5 days) Body mass index 20-24 - normal 526547153 Z68.20 87822694 BMI 20.7 Diet education 65284034 Z71.3 Exercises education, guidance, and counseling 178664600 Z71.82 [id number] Pineda Kasper MD [facility] [address] [place] [address] 11/04/2024 15:41:08 11/08/2024 07:54:24 Chronic obstructive pulmonary disease 75395271 J44.9 556954945 He has been started on Breztri. He [...] years old and he was counseled accordingl y.- We will order DuoNeb for him- I [...] 2 months. Chronic hy poxemic respiratory failure 358130541 J96.11 985346 Check a 6-minute walk test today. He [...] ABG. Follow-up in 2 months Tobacco user 481429821 Z 72.0 856556 Since the age of 14 the time [...] 2 months Pulmonary emphysema 8743 3001 J43.9 217005681 He has been started on Breztri. He [...] to the hospital. Follow-up in 1 month [id number] KORI ANTONIO DO [facility] [address] [place] [address] 02/02/2025 11:59:56 02/03/2025 08:18:48 Chronic obstructive pulmonary disease 80623067 J44.9 Will discontinu e the breztri due to ineffectiv eness and can try symbicort. Diabetes m ellitus screening 869007677 Z13.1 873249 HIV screening 974199236 Z11.4 423648 Body mass index 20-24 - normal 970259880 Z68.20 62440482 BMI 20.8 Diet education 07840659 Z71.3 Exercises education, guidance, and counseling 232910759 Z71.82 Eye / vision finding [address] of brain and referral to ophthalmol comfort for further evaluation . Nausea 611471069 R11.0 84579 Numbness of face 7157495 09 R20.0 079530 Will arrange for a CT scan of the brain to further evaluate intermitte nt right lower jaw numbness and progressiv e visual changes in the right eye. [id number] KORI ANTONIO DO [facility] [address] [place] [address] 02/07/2025 11:10:52 02/08/2025 08:21:13 Acute exacerbation of chronic obstructive pulmonary disease 078153609 J44.1 710802 During the walk test, the patient s [...] ing. Body mass index 20-24 - normal 531991108 Z68.20 07589710 BMI 20.8 [id number] KORI ANTONIO DO [facility] [address] [place] [address] 03/10/2025 11:20:33 03/10/2025 12:54:37 History of cataract 894876362 Z86.69 0910662 Body mass index 20-24 - normal 293018516 Z68.21 26961474 BMI 21.8 Acute exac erbation of chronic obstructive pulmonary disease 406514704 J44.1 889095 A sample of Yupelri was given. Patient [...] plan and follow-up instructio ns. Diet education 23153064 Z71.3 Exercises education, guidance, and counseling 720849833 Z71.82 [id number] KORI ANTONIO DO [facility] [address] [place] [address] 03/21/2025 10:29:23 03/21/2025 13:47:36 Chronic obstructive pulmonary disease 94188166 J44.9 Patient assistance applicatio n completed for the Yupelri.Fam villarreal requests a home health referral for assistance with household tasks.Refe rral to be initiated to assess eligibilit y and available support services.W ill check on meals on wheels for patient Diet education 64774839 Z71.3 Exercises education, guidance, and counseling 561595602 Z71.82 Cigarette smoker 0678494 7 F17.210 470319 History an d physical examination, annual for health maintenance 20866767 Z00.00 8719636086 Patient presented to office today for their Medicare Annual Wellness Visit. Depressive disorder 9250 2779 F32.A Will increase the fluoxetine to 60 mg daily. Patient denies current suicidal thoughts. Influenza vaccination declined 230498603 Z28.21 49726213 Influenza vaccine declined [id number] KORI ANTONIO DO [facility] [address] [place] [address] 03/31/2025 10:06:38 03/31/2025 14:33:46 Body mass index 20-24 - normal 605244353 Z68.21 59255812 BMI 21.3 Diet education 68193332 Z71.3 Exercises education, guidance, and counseling 217309173 Z71.82 Atrial fibrillation 4943 6004 I48.91 39249959 EKG reviewedAm jay called at 9:40 AMIV started at 9:45 AMAmbulanc e left at 10:05 AM Dependence on supplemental oxygen 7982557631 07 Z99.81 Chronic ob structive pulmonary disease 50092810 J44.9 [id number] KORI ANTONIO DO [facility] [address] [place] [address] 04/05/2025 14:02:04 04/05/2025 15:45:30 History and physical examination, follow-up 801108217 Z09 461837 Atrial fib rillation with rapid ventricular response 2153836068 87189 I48.91 9535533 started on metoprolol , Cartia XT 240 mg, Eliquis 5mg Body mass index 20-24 - normal 146252046 Z68.21 59495699 BMI 21.4 Diet education 42419506 Z71.3 Exercises education, guidance, and counseling 662041983 Z71.82 Congestive heart failure 17782394 I50.9 4702102039 continue furosemide Dependence on supplemental oxygen 6687270114 07 Z99.81 Chronic ob structive pulmonary disease 07661945 J44.9 VORTEX delivery system was provided to patient. Continue the breztri daily and levalbuter ol PRN. Tobacco user 874772302 Z 72.0 Tobacco us e cessation education 121539420 Z71.6 [id number] KORI MARISELA, [facility] [address] [place] [address] 04/12/2025 11:39:45 04/12/2025 13:13:29 Edema of lower extremity 545959704 R60.0 70482 Body mass index 20-24 - normal 889059826 Z68.23 77382533 Diet education 56923576 Z71.3 Exercises education, guidance, and counseling 530471678 Z71.82 Congestive heart failure 37061962 I50.9 5473875164 The patient has significan t swelling in the lower extremitie s and is short of breath.An ambulance was called at 10:55 AM and left at 11:13 AM Health Concerns Section Related Observation LastModified by Organization Detai ls LastModified Time None Recorded Concern Status LastModified by Organization Details LastModified Time None Recorded Advance Directives Directive N: Payers Insurance Date Sequence Insurance Name Policy Number Policy Mcgowan Covered Member ID Mcgowan Member ID Guarantor Name 03/10/2025 1 [employer] (MEDICARE REPLACEMENT/A DVANTAGE - HMO) Darren Foley [id number] Darren Foley 03/10/2025 3 [employer] (MEDICARE REPLACEMENT/A DVANTAGE - PPO) Darren Foley [id number] Darren Foley 03/10/2025 1 [employer] (MEDICARE REPLACEMENT/A DVANTAGE - HMO) Darren Foley [id number] Darren Foley 03/10/2025 2 [place] Darren Foley Jr [id number] Darren Foley 03/10/2025 1 [place]MEDICARE REPLACEMENT HMO) [id number] Darren Foley Jr [id number] Darren Foley 03/10/2025 2 [place] CARLOS ALBERTO Foley [id number] Darren Foley 04/12/2025 1 [place]MEDICARE REPLACEMENT HMO) [id number] Darren Foley Jr [id number] Darren Foley 03/10/2025 2 [place]BERTO Foley [id number] Darren Foley 03/30/2025 3 [place] Darren Foley Jr [id number] Darren Foley Notes Date Note Type Note Provider Name and Address Organization Details Recorded Time 03/10/2025 text/html Patient reports several days of shortness of breath accompanied by a cough. He is having difficulty expectorating phlegm. He is currently using an inhaler but is interested in discussing alternative options. No fever or chest pain reported. Cindy Joseph NP [address], [address], [facility] 03/10/2025 12:39:28 03/21/2025 text/html Medicare Annual Wellness [...] attributes to the recent gloomy weather. Cindy Joseph NP [address], [address], [facility] 03/21/2025 15:58:12 03/31/2025 text/html Patient presents with complaints of his A-Fib acting up. He is currently on 3L of oxygen. He has been more short of breath than usual. He also has noticed some swelling in his feet. He is feeling dizzy. He is not seeing a branch service associate. He was advised to go to the ER yesterday but he had refused. He has agreed to go the ER today. Cindy Joseph NP [address], [address], [facility] 03/31/2025 11:42:17 04/05/2025 text/html Patient was admitted on 03/31/2025 to [facility] and discharged on 04/03/2025. A-fib with RVR, and CHF. He was prescribed metoprolol tartrate 25 mg and levofloxacin. He said he has restarted the breztri and levalbuterol PRN. He was advised to do a 1,300 mL daily fluid restriction which is is struggling to do. Cindy Joseph NP [address], [address], [facility] 04/05/2025 16:01:53 04/12/2025 text/html Patient presents with swelling in his lower legs extending up to his waist and reports shortness of breath and chest pain. He went to the ER on 04/08/2025 and was prescribed Lasix. He is supposed to be taking 60 mg daily. He has history of Afib with RVR, Acute on chronic systolic and diastolic congestive heart failure, cardiomyopathy, COPD Cindy Joseph NP [address], [address], [facility] 04/12/2025 12:39:52
--- OUTSIDE RECORDS SUMMARY | 2025-04-13 12:23 | XMS_ITS | Clinical Summary ---
Author Organization [facility] Address [address] [place] [address] Care Team Providers Care Heavy Equipment Plumbing Supervisor Name Role Phone Donal Blackburn MD Primary Care Provider [phone] [phone] Allergies Active Allergy Reactions Criticality Noted Date [...] Encounters Date Type Department Care Team Description 04/12/2025 External Device Data ST[facility] ABSTRACTION Provider, Abstract 04/12/2025 External Device Data [facility]L ABSTRACTION Provider, Abstract 04/12/2025 External Device Data [facility] ABSTRACTION Provider, Abstract 03/31/2025 6:05 AM CHIEF 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 RECOVERY - 03/31/2025 11:59 PM CHIEF 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 RECOVERY Hospital Encounter [facility] [address] [address] Ambulance, [facility] Discharge Disposition: [facility] 02/17/2025 External Device Data STL ABSTRACTION Provider, [...] on file Legal Sex Male 8:54 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 Gender Identity Not on file Sexual Orientation [...] Health Maintenance Due Date Last Done Comments FIT/FOBT Q 1 YEAR (AUTO ORDER) 1979 DTAP/TDAP/TD VACCINES (1 - Tdap) 02/14/1980 COLORECTAL CANCER SCREENING (AUTO ORDER) 2006 COLORECTAL SCREENING 2006 Colorectal Cancer Screening 2006 FIT-DNA Q 3 years 2006 FIT/FOBT Q 1 year 2006 Flex Sig/CT Colonography Q 5 years 2006 RSV VACCINE (60+ or ) (1 - Risk 50-74 years 1-dose series) 2011 ZOSTER VACCINE (1 of 2) 2011 Medicare Advantage ([place]) Prev entative Visit/Annual Wellness Visit 05/26/2024 INFLUENZA VACCINE (#1) 2024 4, 05/02/2021, 06/28/2020 FIT/ DNA Q 3 YEARS (AUTO ORDER) 12/31/2026 Colorectal Cancer Screening (AUTO ORDER) 12/31/2028 FLEX SIG/CT COLONOGRAPHY Q 5 YEARS (AUTO ORDER) 12/31/2028 01/01/2024, 01/01/2024 Insurance [facility] DUAL ADVANTAGE O DSNP Care Teams Heavy Equipment Plumbing Supervisor Relationship Specialty Start Date End Date Donal Blackburn MD [address] [address] PCP - General Family Practice 06/28/20
--- OUTSIDE RECORDS SUMMARY | 2025-04-13 12:23 | XMS_ITS | Encounter Summary ---
Author Organization [facility] Address [address] [place] [address] Care Team Providers Care Comparative Sociology Professor Name Role Phone Donal Blackburn MD Primary Care Provider [phone] [phone] Encounter Details Date Type Department Care Team (Late st Contact Info) Description 04/12/2025 External Device Data [facility]STRACTION Provider, Abstract NO ADDRESS ON FILE Social History Tobacco Use Types Packs/Day Years Used Date Smoking Tobacco: Every Day Cigarettes Smokeless Tobacco: Never Alcohol Use Standard Drinks/Week Comments Not Currently 0 (1 standard drink = 0.6 oz pur e alcohol) Sex and Gender Information Value Date Recorded Sex Assigned at Not on file 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
--- OUTSIDE RECORDS SUMMARY | 2025-04-13 12:23 | XMS_ITS | Encounter Summary ---
Author Organization [facility] Address 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
--- OUTSIDE RECORDS SUMMARY | 2025-04-13 12:23 | XMS_ITS | Encounter Summary ---
Author Organization [facility] Address 

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
--- OUTSIDE RECORDS SUMMARY | 2025-04-13 12:23 | XMS_ITS | Clinical Summary ---
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
[2025-04-13] MEDS: metoprolol tartrate 1 mg/1 mL SDV 5 mL 5 MG IVP (13:58)
[2025-04-13] MEDS: fluticasone nasal spray 16gm Btl 2 SPRAY NASAL (16:51)
--- NOTE | 2025-04-13 22:17 | ECG_ITS ---
[facility] Test Date: 2025-04-13 Pat Name: Darren Foley Department: Room: 108 Gender: Male [employer] Incident Responder: : 1960 Requested By: Minal Israel Order Number: [id number] Erica MD: Kelly Aquino M.D. Measurements Intervals [place] Rate: 105 P: 0 AK: 0 QRS: 80 QRSD: 82 T: 75 QT: 340 QTc: 450 Interpretive Statements ATRIAL FIBRILLATION WITH RAPID VENTRICULAR RESPONSE WITH ABERRANT CONDUCTION OR VENTRICULAR PREMATURE COMPLEXES LOW QRS VOLTAGE IN EXTREMITY LEADS [QRS DEFLECTION < 0.5 mV IN LIMB LEADS] SEPTAL MYOCARDIAL INFARCTION , OF INDETERMINATE AGE [40+ ms Q WAVE IN V1/V2] Compared to ECG 04/12/2025 12:43:21 Ventricular premature complex(es) now present Aberrant conduction of supraventricular beat(s) now present Low QRS voltage now present Myocardial infarct finding now present Electronically Signed On 04-13-2025 23:50:30 [employer] by Kelly Aquino M.D. [email or web address]
[2025-04-14] VITALS (7 sets, daily range): BP systolic 121–131; BP diastolic 71–81; PULSE 82–112; RESP 18–21; TEMP 36.1–36.8; O2SAT 97–100
[2025-04-14 00:01] LABS: Troponin(5th) Baseline 45 ng/L (0-15)
[2025-04-14 01:13] LABS: Troponin 5 2HR 44.15 ng/L (0-15)
[2025-04-14 01:15] LABS: Troponin 5 2HR Delta -0.85 ABS# (0-10)
[2025-04-14 05:21] LABS: Troponin 5 6HR 44.59 ng/L (0-15)
[2025-04-14 05:25] LABS: Troponin 5 6HR Delta -0.41 ng/L (0-12)
[2025-04-14] MEDS: dilTIAZem ER (24HR) 240 mg Capsule PO (06:09)
[2025-04-14] MEDS: HYDROcodone-acetaminophen 5-325 mg Tablet 1 TAB PO (06:10)
[2025-04-14] MEDS: methylPREDNISolone sod succ 125 mg/2 mL INJ 80 MG IVP (06:11)
[2025-04-14] MEDS: FUROsemide 10 mg/mL SDV 4mL 40 MG IVP (06:11)
[2025-04-14] MEDS: fluticasone nasal spray 16gm Btl 2 SPRAY NASAL (06:12)
--- NOTE | 2025-04-14 08:32 | PM.DCS ---
Discharge Providers Date of Admission: 04/12/25 14:43 Date of Discharge: April 14, 2025 Attending Provider at Admission: Duc Henriquez MD Attending Provider at Discharge: Sandra López NP Primary Care Provider: Cindy Joseph NP Diagnoses at Discharge Discharge Diagnosis 1. Acute on chronic combined systolic and diastolic congestive heart failure: 2. Edema, peripheral: 3. Shortness of breath: 4. Dyslipidemia: 5. Primary hypertension: 6. Atrial fibrillation: 7. Chronic obstructive pulmonary disease, unspecified COPD type: 8. Tobacco abuse: Reason for Visit Reason for Visit: CHF exacerbation, Leg swelling Brief History: Admission: Darren Foley Jr is a 65 year old male with a past medical history of tobacco abuse, coronary artery disease, atrial fibrillation, COPD, peripheral arterial disease who presents to the ER today with increased shortness of breath and bilateral leg swelling. Patient was recently hospitalized for A-fib RVR, CHF. Patient treated in the ER with 80 mg IV Lasix, DuoNeb, 125 mg IV Solu-Medrol, BiPAP with significant improvement of symptoms. By the time patient had been examined he had already urinated approximately 1 L of fluids. Spoke with patient about his tobacco use, he smokes approximate 1 pack/day whilst using supplemental oxygen 2 L/min at his baseline. Patient continues to endorse bilateral leg swelling and shortness of breath. Patient denies current chest pain, nausea, vomiting, diarrhea, abdominal pain, any type of bleeding, dark or tarry stools, or syncope. Patient states he has a tremor at his baseline. Patient also states daily medical marijuana use for anxiety. Patient did not really want to admit but is agreeable to an observation admission, wants to stop the BiPAP but we will keep on for 4 hours and repeat ABGs hopefully transitioning to oxygen by nasal cannula. Admits to cardiac stepdown in stable condition. All questions and concerns addressed the patient at bedside today. Hospital Course Hospital Course Acute on chronic combined systolic and diastolic heart failure Edema Dyspnea - Given 80 mg IV Lasix in the ER, continue IV Lasix for diuresis on admission - Admitting BNP 1306, up from last week at 935 - Strict ELIN - 1500 mL fluid restriction - Daily weights - Last echo 03/31/2025: Mild diffuse hypokinesis of the septum and anterior septum, LV ejection fraction around 44%, grade I/IV diastolic dysfunction - Continue cardio-protective medications as previously prescribed COPD Acute on chronic hypercapnic respiratory failure - CXR: No interval development of lung abnormality since the previous examination 04/08/2025 - Continue as needed and scheduled DuoNeb, Pulmicort twice daily - Repeat ABG: pH 7.44, CO2 66.5, O2 117.0, HCO3 44.8, O2 sat 99 - Continue BiPAP, repeat ABGs - Supplemental oxygen 2 L/min by nasal cannula as his baseline - Admitting WBC 13.97, now 11.09 - Pending blood culture x 2 - Empiric antibiotics doxycycline 100 mg p.o. twice daily Atrial fibrillation - Elevated heart rate 125 - Continue Cardizem and Eliquis Hypertension - Blood pressure 135/86 - Resume home medications Dyslipidemia - Continue home dosing statin Tobacco abuse - Smokes 1 pack/day - Nicotine patch - Smoking cessation advised VTE PPx: Eliquis, SCDs GI PPx: Pepcid CODE STATUS: Full code Patient diuresed very well, baseline oxygen requirement 2 L/min by nasal cannula with trace dependent edema noted. Patient is advised to follow-up with primary care provider in 1 to 2 days of discharge, pulmonology and cardiology at next available appointments. Patient is also advised to be compliant with all his home medications. Refilled patient's inhaler -he states he does not need any refills on his home medications including his nebulizers. Patient does discharge with continued oral doxycycline x 5 days. Smoking cessation strongly advised, discharges with 30 days of nicotine patches. Discharge is in stable condition at his baseline to resume home health, referral for evaluation of hospice sent, greatly appreciate case management and coordination of discharge planning. Physical Exam Narrative: 65-year-old male, disheveled, sitting up in bed with nasal cannula in place, continued shortness of breath at baseline. Const: COMMON NORMALS: no acute distress, patient oriented x3 and well nourished HENMT: COMMON NORMALS: normocephalic and Normal external nose present HEAD & SCALP: normocephalic NOSE: Normal external nose present Eye: COMMON NORMALS: Equal, round and reactive pupils present PUPIL: Yes Equal, round and reactive pupils present Resp: EFFORT & INSPECTION: Yes tachypneic AUSCULTATION: crackles and diminished lung sounds Cardio: RHYTHM: abnormal rhythm regularly irregular GI: COMMON NORMALS: Normal to inspection, nondistended, normoactive bowel sounds present Extremity: NARRATIVE EXTREMITY EXAM: trace dependent edema Neuro: COMMON NORMALS: patient oriented x3, CN's II-XII intact bilaterally and moves all extremities Psych: COMMON NORMALS: cooperative, normal affect and speech normal SPEECH: Yes normal speech Skin: COMMON NORMALS: no rashes or lesions noted NARRATIVE SKIN EXAM: trace edema bilateral lower extremities, improved over previous inspection GENERAL SKIN EXAM: no rashes or lesions noted Discharge Data Studies Completed and Pending Completed Studies During Hospitalization Category Date Time Status XR chest 1V portable [id number] Stat Exams 04/12/25 13:08 Completed Pending at discharge Category Date Time Status Blood Culture Stat Lab 04/12/25 13:52 Results CBC Auto Diff [Complete Blood Count w/Auto] AM LABS Lab 04/14/25 07:45 Ordered CBC Auto Diff [Complete Blood Count w/Auto] AM LABS Lab 04/15/25 07:45 Ordered Comprehensive Metabolic Panel AM LABS Lab 04/14/25 07:45 Ordered Comprehensive Metabolic Panel AM LABS Lab 04/15/25 07:45 Ordered VBG [Venous Blood Gas] Routine Lab 04/14/25 07:43 Ordered Radiology Impressions Chest X-Ray 04/12/25 13:08 IMPRESSION: No interval development of lung abnormality since the previous examination 04/08/2025. Laboratory Results WBC 11.09 10^3/uL (3.29-11.43) 04/13/25 04:04 RBC 3.59 10^6/uL (3.85-5.65) L 04/13/25 04:04 Hgb 11.20 g/dL (11.27-16.99) L 04/13/25 04:04 Hct 34.3 % (37-53) L 04/13/25 04:04 MCV 95.5 fl (82-101) 04/13/25 04:04 MCH 31.2 pg (27-33) 04/13/25 04:04 MCHC 32.7 g/dL (30-55) 04/13/25 04:04 RDW 11.9 % (12.1-15.1) L 04/13/25 04:04 Plt Count 255 10^3/cmm (157-399) 04/13/25 04:04 MPV 8.9 fL (7.4-10.4) 04/13/25 04:04 Neut % (Auto) 92.1 % 04/13/25 04:04 Lymph % (Auto) 3.5 % 04/13/25 04:04 Placer % (Auto) 2.0 % 04/13/25 04:04 Eos % (Auto) 0.0 % 04/13/25 04:04 Baso % (Auto) 0.1 % 04/13/25 04:04 Neut # (Auto) 10.22 10^3/uL (1.8-7.7) H 04/13/25 04:04 Lymph # (Auto) 0.4 10^3/uL (0.8-4.8) L 04/13/25 04:04 Placer # (Auto) 0.2 10^3/uL (0.2-0.9) 04/13/25 04:04 Eos # (Auto) 0.0 10^3/uL (0.0-0.8) 04/13/25 04:04 Baso # (Auto) 0.0 10^3/uL (0.0-0.1) 04/13/25 04:04 Nucleated RBC % (auto) 0 % 04/13/25 04:04 Nucleated RBCs # 0.0 /100WBC 04/13/25 04:04 Specimen Type Arterial 04/13/25 02:06 Sample Site Brachial, right 04/13/25 02:06 ABG pH 7.44 (7.35-7.45) 04/13/25 02:06 ABG pCO2 66.5 mmHg (35-45) H* 04/13/25 02:06 ABG pO2 117.0 mmHg (80.0-100.0) H 04/13/25 02:06 ABG PO2/FiO2 Ratio 274 04/12/25 17:18 ABG HCO3 44.8 mmol/L (22-26) H 04/13/25 02:06 ABG O2 Saturation 99.0 04/13/25 02:06 ABG Base Excess 17.4 mmol/L (-2.0-2.0) H 04/13/25 02:06 Ananth Test N/a 04/13/25 02:06 A-a O2 Gradient 0.0 mmHg (5-10) L 04/13/25 02:06 Hematocrit 37.3 % (42-52) L 04/13/25 02:06 Hgb O2 Saturation 96.6 % (95-100) 04/13/25 02:06 Carboxyhemoglobin 1.2 %THgb (0.4-20.1) 04/13/25 02:06 Methemoglobin 1.3 % (0.4-1.5) 04/13/25 02:06 Total Hemoglobin 12.2 g/dL (14-18) L 04/13/25 02:06 Sodium 140.0 mmol/L (131-143) 04/13/25 02:06 Potassium 4.0 mmol/L (3.5-5.0) 04/13/25 02:06 Glucose 214.0 mg/dL (70-115) H 04/13/25 02:06 Ionized Calcium 1.2 mmol/L (1.1-1.4) 04/13/25 02:06 O2 Delivery Device Nc 04/13/25 02:06 O2 Liters/Min 2.0 % 04/13/25 02:06 FiO2 28.0 % 04/12/25 17:18 PEEP 8.0 cmH20 04/12/25 17:18 Health Science Instructor ID [email or web address] 04/13/25 02:06 Sodium 140 mmol/L (136-145) 04/13/25 04:04 Potassium 4.1 mmol/L (3.5-5.1) 04/13/25 04:04 Chloride 92 mmol/L (98-107) L 04/13/25 04:04 Carbon Dioxide 42 mmol/L (22-29) H* 04/13/25 04:04 Anion Gap 10.1 (5-19) 04/13/25 04:04 BUN 21 mg/dL (8-23) 04/13/25 04:04 Creatinine 0.7 mg/dL (0.7-1.2) 04/13/25 04:04 GFR Calculation 113.5 mL/min (90-130) 04/13/25 04:04 Glucose 201 mg/dL (65-115) H 04/13/25 04:04 Calculated Osmolality 299 mOsm/kg (285-295) H 04/13/25 04:04 Lactic Acid 1.2 mmol/L (0.5-2.2) 04/12/25 12:40 Calcium 8.7 mg/dL (8.5-10.5) 04/13/25 04:04 Magnesium 2.3 mg/dL (1.7-2.3) 04/13/25 04:04 Total Bilirubin 0.3 mg/dL (0.15-1.2) 04/13/25 04:04 AST 20 U/L (0-40) 04/13/25 04:04 ALT 44 U/L (0-41) H 04/13/25 04:04 Alkaline Phosphatase 64 U/L (40-130) 04/13/25 04:04 Troponin T Baseline 45 ng/L (0-15) H 04/13/25 22:45 Troponin T 120 Minute 44.15 ng/L (0-15) H 04/14/25 00:25 Delta Troponin T -0.85 ABS# (0-10) L 04/14/25 00:25 Troponin T Hi Sens 6Hr 44.59 ng/L (0-15) H 04/14/25 04:45 Troponin T Hi Sens 6Hr Delta -0.41 ng/L (0-12) L 04/14/25 04:45 NT-Pro-B Natriuret Pep 1306 pg/mL (0-125) H 04/12/25 12:40 Total Protein 5.5 g/dL (6.6-8.7) L 04/13/25 04:04 Albumin 3.6 g/dL (3.5-5.2) 04/13/25 04:04 Globulin 1.9 g/dL (1.3-4.6) 04/13/25 04:04 Procalcitonin 0.04 ng/mL (0-0.5) 04/12/25 12:40 Vitals Last Vital Signs Temp 97.0 F L 04/14/25 07:29 Pulse 93 04/14/25 07:29 Resp 21 H 04/14/25 07:29 BP 131/75 04/14/25 07:29 Pulse Ox 97 04/14/25 07:29 O2 Del Method Nasal Cannula 04/14/25 07:27 O2 Flow Rate 2.5 04/14/25 07:27 FiO2 28 04/13/25 04:35 Discharge Plan Discharge Patient Disposition: Home Health Service Condition: Stable Prescriptions: New nicotine 14 mg/24 hr Patch 24 Hour 1 patch transdermal DAILY 30 Days Qty: 30 0RF potassium chloride [Klor-Con 10] 10 mEq Tablet Extended Release 20 meq PO DAILY 30 Days Qty: 30 0RF doxycycline monohydrate 100 mg Tablet 100 mg PO BID 5 Days Qty: 10 0RF furosemide [Lasix] 20 mg tablet 20 mg PO BID 30 Days Qty: 60 0RF Breztri Aerosphere 160-9-4.8 mcg/actuation HFA aerosol inhaler 2 inh inhalation BID 30 Days Qty: 10.7 0RF Continued trazodone 100 mg tablet 250 mg PO DAILY Rexulti 1 mg tablet 1 mg PO DAILY Breztri Aerosphere 160-9-4.8 mcg/actuation Hfa Aerosol Inhaler 2 inh INHALATION BID albuterol sulfate 90 mcg/actuation HFA aerosol inhaler 2 puff INHALATION Q4H PRN (Reason: Shortness Of Breath) fluoxetine 40 mg capsule 40 mg PO DAILY Rx Instructions: along with 20mg to=60mg total clopidogrel 75 mg tablet 75 mg PO DAILY omeprazole 20 mg capsule,delayed release(DR/EC) 20 mg PO QAM fluticasone propionate 50 mcg/actuation spray,suspension 1 spray INTRANASAL DAILY roflumilast 500 mcg tablet 500 mcg PO DAILY metoprolol tartrate 25 mg Tablet 25 mg PO BID@0900,2100 30 Days Qty: 60 0RF diltiazem HCl [Cardizem CD] 240 mg capsule,extended release 24hr 240 mg PO DAILY Qty: 90 0RF prednisone 10 mg tablet See Taper PO DIRECTED Qty: 42 0RF Taper: predniSONE 60-10 60 mg Daily for 2 Days and 0 Hour 50 mg Daily for 2 Days and 0 Hour 40 mg Daily for 2 Days and 0 Hour 30 mg Daily for 2 Days and 0 Hour 20 mg Daily for 2 Days and 0 Hour 10 mg Daily for 2 Days and 0 Hour Rx Instructions: see taper instructions levalbuterol tartrate [Xopenex HFA] 45 mcg/actuation HFA aerosol inhaler 1 inh inhalation Q6H PRN (Reason: shortness of breath or wheezing) Qty: 15 0RF Eliquis 5 mg tablet 5 mg PO BID Qty: 60 0RF Discontinued fluoxetine 20 mg capsule 20 mg PO DAILY Rx Instructions: along with 40mg to=60mg total furosemide 20 mg tablet 20 mg PO DAILY Qty: 90 3RF potassium chloride 10 mEq capsule, extended release 10 meq PO DAILY Qty: 90 3RF budesonide-formoterol [Breyna] 160-4.5 mcg/actuation HFA aerosol inhaler 1 puff INHALATION BID Discharge Order = DC NOW: Discharge Order (Routine); Ordered 04/14/25 Ordered By: Sandra López Referrals: Cely Gregg MD [Physician, Pulmonology] - 04/18/25 8:55 am Adolfo Mcgovern M.D [Physician, Cardiology] - 04/28/25 3:00 pm Cindy Joseph NP [Primary Care Provider, Nurse Practitioner] - 04/20/25 10:40 am Discharge Diet: Cardiac Discharge Activity: Resume usual activity Patient Instructions: Furosemide (By mouth), Doxycycline (By mouth), Potassium Chloride (By mouth), Nicotine (Absorbed through the skin), COPD - Emphysema, How to Stop Smoking (DC), Hospice Care (GEN), COPD (Chronic Obstructive Pulmonary Disease) (DC), CHF Stoplight, Opioid Safety, Pain Management, Patient Portal & Le Instructions Discharge Attestations Time Spent in Discharge Care*: greater than 30 min Status at Discharge: Cognitive status at discharge: cognitively intact, Behavioral status at discharge: cooperative, Quality Metrics Clinical Quality Measures [ No reported AMI, CVA or VTE this stay] Coding Level of Care Code 22635 Diagnoses Acute on chronic combined systolic and diastolic congestive heart failure I50.43 Heart failure chronicity: acute on chronic Heart failure type: combined systolic and diastolic Edema, peripheral R60.0 Shortness of breath R06.02 Dyslipidemia E78.5 Primary hypertension I10 Hypertension type: primary hypertension Atrial fibrillation I48.91 Chronic obstructive pulmonary disease, unspecified COPD type J44.9 COPD type: unspecified COPD Tobacco abuse Z72.0
[2025-04-14 09:19] LABS: Base Excess VBG 16.2 mmol/L (-3.0-3.0); Blood Gas LPM 2.0 %; Blood Gas Operator Identificat WALCI; Blood Gas Sample Type Venous; HCO3 VBG 42.8 mmol/L (24-28); PCO2 VBG 59.5 mmHg (41-51); PO2 VBG 51.5 mmHg (25-40); Venous Blood Gas Hematocrit 39.4 % (42-52); pH VBG 7.47 (7.32-7.42)
[2025-04-14 09:35] LABS: Hematocrit 37.1 % (37-53); Hemoglobin 12.20 g/dL (11.27-16.99); Mean Corpuscular HGB Conc 32.9 g/dL (30-55); Mean Corpuscular Hemoglobin 30.9 pg (27-33); Mean Corpuscular Volume 93.9 fl (82-101); Nucleated Red Blood Cells % 0 %; Platelet Count 249 10^3/cmm (157-399); Red Blood Count 3.95 10^6/uL (3.85-5.65); White Blood Count 15.43 10^3/uL (3.29-11.43)
--- NOTE | 2025-04-14 09:45 | PC.NURSE ---
patient stated his transport will be here at noon.
[2025-04-14 09:59] LABS: Alanine Aminotransferase 41 U/L (0-41); Albumin Level 3.8 g/dL (3.5-5.2); Alkaline Phosphatase 64 U/L (40-130); Anion Gap 12.5 (5-19); Aspartate Amino Transferase 16 U/L (0-40); Blood Urea Nitrogen 22 mg/dL (8-23); Calcium 8.6 mg/dL (8.5-10.5); Chloride 91 mmol/L (98-107); Globulin 1.9 g/dL (1.3-4.6); Glucose 272 mg/dL (65-115); Osmolality Calculated 305 mOsm/kg (285-295); Potassium 3.5 mmol/L (3.5-5.1); Sodium 141 mmol/L (136-145); Total Protein 5.7 g/dL (6.6-8.7)
[2025-04-14 10:06] LABS: Carbon Dioxide 41 mmol/L (22-29)
== END 2025-04-14 12:45 | disposition home health service (06) ==
LOC: ER 14:29 → CSU 14:54
PROVIDERS: Internal Medicine; Admitting Provider Family Medicine; Emergency Provider Family Medicine; PCP Nurse Practitioner Family; Visit Provider Registered Nurse
DX: R60.0 Localized edema (principal); I11.0 Hypertensive heart disease with heart failure; I50.43 Acute on chronic combined systolic (congestive) and diastolic (congestive) heart failure; I48.91 Unspecified atrial fibrillation; E78.5 Hyperlipidemia, unspecified; J44.9 Chronic obstructive pulmonary disease, unspecified; Z79.01 Long term (current) use of anticoagulants; Z79.02 Long term (current) use of antithrombotics/antiplatelets; K21.9 Gastro-esophageal reflux disease without esophagitis; F41.8 Other specified anxiety disorders; F17.200 Nicotine dependence, unspecified, uncomplicated
CPT/HCPCS: 36415; 36600; 71045; 80051; 80053; 82330; 82803; 82805; 83605; 83735; 83880; 84145; 84484; 85025; 87040; 93005; 94640; 94660; 96374; 96375; 99291; G0378; J1938; J2919; J3490; J7626; J9999